=== PATIENT | male | born 1945 | race Caucasian/White ===

== ENCOUNTER 2021-08-04 19:55 | Emergency (ER) | payer MEDICARE ==
[2021-08-04 20:32] VITALS: TEMP 98.2
[2021-08-04 21:14] LABS: Appearance,Urine Clear (Clear); Bacteria,Urine Rare /hpf; Bilirubin,Urine Negative (Negative); Blood,Urine Trace (Negative); Color,Urine Yellow; Glucose,Urine (UA) Negative (Negative); Hyaline Casts,Urine 1 /lpf (0-2); Ketones,Urine 1+ (Negative); Leukocyte Esterase,Urine Small (Negative); Mucus,Urine Occasional /hpf; Nitrite,Urine Negative (Negative); PH, Urine 6.5 (5.0-8.0); Protein,Urine Trace (Negative); RBC,Urine 6 /hpf (0-5); Specific Gravity,Urine 1.017 (1.001-1.035); Urobilinogen,Urine <2.0 mg/dL (<2.0); WBC,Urine 7 /hpf (0-5)
--- NOTE | 2021-08-04 21:23 | ED ---
General Adult HPI - General Chief complaint: Urogenital Stated complaint: AMS Time Seen by Provider: 08/04/21 21:04 Source: patient, family Mode of arrival: ambulatory - History of Present Illness Initial comments: Zachary is a 76-year-old male is brought to the ER today by his and a friend, they're concerned with patient's been quite agitated and not acting like himself. reports that his urine is been very dark and malodorous she is concerned he has UTI. 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 He is under a lot of stress but states that he would never harm himself or others. Family is also concerned because the patient has a long-standing inguinal hernia which pops out 2-3 times a day and sometimes he has to lay down upon it back in. He's not had this followed up by surgeon he doesn't see doctors. Past to be 70 urinary symptoms patient states when I have to go ago and walk for no other information about urinary symptoms. When asked about his hernia he says it looks like any old other hernia and it's fine no pain. - Related Data Previous Rx's Medication Instructions Recorded Cephalexin [Keflex] 500 mg PO Q8HR 5 Days #15 cap 08/04/21 Allergies Allergy/AdvReac Type Severity Reaction Status Date / Time No Known Allergies Allergy Verified 08/04/21 21:35 Review of Systems ROS Statement: Those systems with pertinent positive or pertinent negative responses have been documented in the HPI. ROS Other: All systems not noted in ROS Statement are negative. Past Medical History Past Medical History: No Reported History History of Any Multi-Drug Resistant Organisms: None Reported Past Surgical History: Tonsillectomy Past Psychological History: No Psychological Hx Reported Smoking Status: Never smoker Past Alcohol Use History: None Reported Past Drug Use History: None Reported General Exam - General Exam Comments Initial Comments: Physical Exam GENERAL: Patient is well-developed and well-nourished. Patient is nontoxic and well-hydrated and is in no distress. HENT: Normocephalic, Atraumatic. EYES: PERRL, EOMI PULMONARY: Unlabored respirations. CARDIOVASCULAR: RRR Warm and well perfused extremities ABDOMEN: Non-distended SKIN: No rashes or bruising : Deferred NEUROLOGIC: Alert and oriented Normal speech Normal gait MUSCULOSKELETAL: Moving all extremities with no apparent injury PSYCHIATRIC: No SI/HI Course Vital Signs 08/04/21 08/04/21 08/04/21 20:26 21:32 22:00 Temperature 98.2 F Pulse Rate 80 76 87 Respiratory 18 16 16 Rate Blood Pressure 145/95 148/100 139/97 O2 Sat by Pulse 94 L Oximetry Medical Decision Making - Medical Decision Making Patient was seen and evaluated history is obtained from family members Labs were unremarkable urine suggestive of an early urinary tract infection from patient given Sterapred for Keflex and a prescription The patient is clearly agitated he is not suicidal, homicidal or delusional Patient and family feel comfortable with discharge home Were provided with contact information for local surgeon should the patient what his hernia evaluated - Lab Data Result diagrams: 08/04/21 21:33 08/04/21 21:33 Lab Results 08/04/21 08/04/21 08/04/21 Range/Units 20:42 21:33 21:33 WBC 10.3 (3.8-10.6) k/uL RBC 4.83 (4.30-5.90) m/uL Hgb 14.3 (13.0-17.5) gm/dL Hct 46.1 (39.0-53.0) % MCV 95.4 (80.0-100.0) fL MCH 29.6 (25.0-35.0) pg MCHC 31.0 (31.0-37.0) g/dL RDW 12.7 (11.5-15.5) % Plt Count 257 (150-450) k/uL MPV 7.0 Neutrophils % 75 % Lymphocytes % 12 % Monocytes % 6 % Eosinophils % 5 % Basophils % 1 % Neutrophils # 7.7 (1.3-7.7) k/uL Lymphocytes # 1.2 (1.0-4.8) k/uL Monocytes # 0.6 (0-1.0) k/uL Eosinophils # 0.5 (0-0.7) k/uL Basophils # 0.1 (0-0.2) k/uL Sodium 135 L (137-145) mmol/L Potassium 4.3 (3.5-5.1) mmol/L Chloride 104 (98-107) mmol/L Carbon Dioxide 25 (22-30) mmol/L Anion Gap 6 mmol/L BUN 17 (9-20) mg/dL Creatinine 0.77 (0.66-1.25) mg/dL Est GFR (CKD-EPI)AfAm >90 (>60 ml/min/1.73 sqM) Est GFR (CKD-EPI)NonAf 88 (>60 ml/min/1.73 sqM) Glucose 94 (74-99) mg/dL Calcium 10.2 (8.4-10.2) mg/dL Total Bilirubin 1.2 (0.2-1.3) mg/dL AST 28 (17-59) U/L ALT 25 (4-49) U/L Alkaline Phosphatase 82 (38-126) U/L Total Protein 6.7 (6.3-8.2) g/dL Albumin 4.0 (3.5-5.0) g/dL Urine Color Yellow Urine Appearance Clear (Clear) Urine pH 6.5 (5.0-8.0) Ur Specific [place] 1.017 (1.001-1.035) Urine Protein Trace H (Negative) Urine Glucose (UA) Negative (Negative) Urine Ketones 1+ H (Negative) Urine Blood Trace H (Negative) Urine Nitrite Negative (Negative) Urine Bilirubin Negative (Negative) Urine Urobilinogen <2.0 (<2.0) mg/dL Ur Leukocyte Esterase Small H (Negative) Urine RBC 6 H (0-5) /hpf Urine WBC 7 H (0-5) /hpf Urine Bacteria Rare H (None) /hpf Hyaline Casts 1 (0-2) /lpf Urine Mucus Occasional H (None) /hpf Disposition Clinical Impression: UTI (urinary tract infection), Acute stress reaction Disposition: HOME SELF-CARE Condition: Stable Prescriptions: Cephalexin [Keflex] 500 mg PO Q8HR 5 Days #15 cap Is patient prescribed a controlled substance at d/c from ED?: No Referrals: None,Stated [Primary Care Provider] - 1-2 days Chapincito Ramos MD [Medical Doctor] - 1-2 days River Valdez DO [Doctor of Osteopathic Medicine] - 1-2 days
[2021-08-04 21:40] VITALS: RESP 16
[2021-08-04 21:46] LABS: Basophils # (A) 0.1 k/uL (0-0.2); Basophils % (A) 1 %; Eosinophils # (A) 0.5 k/uL (0-0.7); Eosinophils % (A) 5 %; HCT 46.1 % (39.0-53.0); HGB 14.3 gm/dL (13.0-17.5); Lymphocytes # (A) 1.2 k/uL (1.0-4.8); Lymphocytes % (A) 12 %; MCH 29.6 pg (25.0-35.0); MCV 95.4 fL (80.0-100.0); Monocytes # (A) 0.6 k/uL (0-1.0); Monocytes % (A) 6 %; Neutrophils # (A) 7.7 k/uL (1.3-7.7); Neutrophils % (A) 75 %; Platelet Count 257 k/uL (150-450); RBC 4.83 m/uL (4.30-5.90); RDW 12.7 % (11.5-15.5); WBC 10.3 k/uL (3.8-10.6)
[2021-08-04 21:56] LABS: ALT 25 U/L (4-49); AST 28 U/L (17-59); African American GFR (CKD) >90 (>60 ml/min/1.73 sqM); Alkaline Phosphatase 82 U/L (38-126); Anion Gap 6 mmol/L; Blood Urea Nitrogen 17 mg/dL (9-20); Calcium 10.2 mg/dL (8.4-10.2); Carbon Dioxide 25 mmol/L (22-30); Chloride 104 mmol/L (98-107); Glucose 94 mg/dL (74-99); Non-African American GFR(CKD) 88 (>60 ml/min/1.73 sqM); Potassium 4.3 mmol/L (3.5-5.1); Sodium 135 mmol/L (137-145); Total Bilirubin 1.2 mg/dL (0.2-1.3); Total Protein 6.7 g/dL (6.3-8.2)
[2021-08-04] MEDS ORDERED: CEPHALEXIN 500MG STARTER PACK 4 CAP BTL PO STA (22:44)
[2021-08-04 23:24] VITALS: BP 139/97; PULSE 87
== END 2021-08-04 23:25 | disposition home or self-care (01) ==
LOC: EC 19:55
DX: N39.0 Urinary tract infection, site not specified (principal); F43.0 Acute stress reaction
CPT/HCPCS: 36415; 80053; 81001; 85025; 99284

== ENCOUNTER 2021-08-08 10:17 | Inpatient (IN) | payer MEDICARE, OTHER ==
--- NOTE | 2021-08-08 10:58 | ED ---
General Adult HPI - General Chief complaint: Psychiatric Symptoms Stated complaint: UTI-revisit Time Seen by Provider: 08/08/21 10:26 Source: patient, RN notes reviewed, old records reviewed Mode of arrival: ambulatory Limitations: no limitations - History of Present Illness Initial comments: 76-year-old male presents for psychiatric evaluation. Patient has been making suicidal comments including plan to take cyanide pill. He does not have a desire to live. He has been noncompliant with medical treatment. He was diagnosed with urinary tract infection about one week ago and has required monitoring in order to take his antibiotics. His been no fever. No focal numbness or weakness. Patient family has also reported some increased confusion. - Related Data Home Medications Medication Instructions Recorded Confirmed Cephalexin [Keflex] 500 mg PO Q8H 08/08/21 08/08/21 Allergies Allergy/AdvReac Type Severity Reaction Status Date / Time No Known Allergies Allergy Verified 08/08/21 13:03 Review of Systems ROS Statement: Those systems with pertinent positive or pertinent negative responses have been documented in the HPI. ROS Other: All systems not noted in ROS Statement are negative. Past Medical History Past Medical History: No Reported History History of Any Multi-Drug Resistant Organisms: None Reported Past Surgical History: Tonsillectomy Past Psychological History: No Psychological Hx Reported Smoking Status: Never smoker Past Alcohol Use History: None Reported Past Drug Use History: None Reported General Exam Limitations: no limitations General appearance: alert, in no apparent distress Head exam: Present: atraumatic, normocephalic Eye exam: Present: normal appearance, PERRL ENT exam: Present: normal exam Neck exam: Present: normal inspection. Absent: tenderness, meningismus Respiratory exam: Present: normal lung sounds bilaterally. Absent: respiratory distress, wheezes Cardiovascular Exam: Present: regular rate, normal rhythm GI/Abdominal exam: Present: soft. Absent: distended, tenderness Extremities exam: Present: normal inspection, normal capillary refill Neurological exam: Present: alert, oriented X3, CN II-XII intact. Absent: motor sensory deficit Psychiatric exam: Present: depressed, suicidal ideation Skin exam: Present: warm, dry, intact. Absent: cyanosis, diaphoretic Course Vital Signs 08/08/21 10:18 Temperature 97.5 F L Pulse Rate 76 Respiratory 18 Rate Blood Pressure 145/95 O2 Sat by Pulse 94 L Oximetry - Reevaluation(s) Reevaluation #1: 08/08/21 13:39 Patient had been medically cleared and evaluated by EPS. He is felt to require inpatient psychiatric evaluation and treatment. Medical Decision Making - Medical Decision Making Patient will be admitted for further psychiatric evaluation and treatment.. Patient is suicidal, paranoid and delusional. The complete a clinical certification on this patient. - Lab Data Result diagrams: 08/08/21 11:28 08/08/21 11:28 Lab Results 08/08/21 08/08/21 08/08/21 Range/Units 11:28 11:28 11:28 WBC 7.5 (3.8-10.6) k/uL RBC 4.73 (4.30-5.90) m/uL Hgb 15.1 (13.0-17.5) gm/dL Hct 44.7 (39.0-53.0) % MCV 94.4 (80.0-100.0) fL MCH 31.9 (25.0-35.0) pg MCHC 33.8 (31.0-37.0) g/dL RDW 13.3 (11.5-15.5) % Plt Count 285 (150-450) k/uL MPV 7.1 Neutrophils % 74 % Lymphocytes % 10 % Monocytes % 7 % Eosinophils % 5 % Basophils % 1 % Neutrophils # 5.5 (1.3-7.7) k/uL Lymphocytes # 0.8 L (1.0-4.8) k/uL Monocytes # 0.6 (0-1.0) k/uL Eosinophils # 0.4 (0-0.7) k/uL Basophils # 0.0 (0-0.2) k/uL Sodium 138 (137-145) mmol/L Potassium 4.4 (3.5-5.1) mmol/L Chloride 107 (98-107) mmol/L Carbon Dioxide 23 (22-30) mmol/L Anion Gap 8 mmol/L BUN 17 (9-20) mg/dL Creatinine 0.67 (0.66-1.25) mg/dL Est GFR (CKD-EPI)AfAm >90 (>60 ml/min/1.73 sqM) Est GFR (CKD-EPI)NonAf >90 (>60 ml/min/1.73 sqM) Glucose 83 (74-99) mg/dL Calcium 10.2 (8.4-10.2) mg/dL Total Bilirubin 0.7 (0.2-1.3) mg/dL AST 26 (17-59) U/L ALT 24 (4-49) U/L Alkaline Phosphatase 76 (38-126) U/L Total Protein 6.9 (6.3-8.2) g/dL Albumin 4.0 (3.5-5.0) g/dL Urine Color Yellow Urine Appearance Clear (Clear) Urine pH 6.5 (5.0-8.0) Ur Specific [place] 1.015 (1.001-1.035) Urine Protein Negative (Negative) Urine Glucose (UA) Negative (Negative) Urine Ketones Trace H (Negative) Urine Blood Negative (Negative) Urine Nitrite Negative (Negative) Urine Bilirubin Negative (Negative) Urine Urobilinogen <2.0 (<2.0) mg/dL Ur Leukocyte Esterase Trace H (Negative) Urine RBC 4 (0-5) /hpf Urine WBC 4 (0-5) /hpf Ur Squamous Epith Cells <1 (0-4) /hpf Urine Mucus Rare H (None) /hpf Urine Opiates Screen (NotDetected) Ur Oxycodone Screen (NotDetected) Urine Methadone Screen (NotDetected) Ur Propoxyphene Screen (NotDetected) Ur Barbiturates Screen (NotDetected) U Tricyclic Antidepress (NotDetected) Ur Phencyclidine Scrn (NotDetected) Ur Amphetamines Screen (NotDetected) U Methamphetamines Scrn (NotDetected) U Benzodiazepines Scrn (NotDetected) Urine Cocaine Screen (NotDetected) U Marijuana (THC) Screen (NotDetected) Serum Alcohol <10 mg/dL 08/08/21 Range/Units 11:28 WBC (3.8-10.6) k/uL RBC (4.30-5.90) m/uL Hgb (13.0-17.5) gm/dL Hct (39.0-53.0) % MCV (80.0-100.0) fL MCH (25.0-35.0) pg MCHC (31.0-37.0) g/dL RDW (11.5-15.5) % Plt Count (150-450) k/uL MPV Neutrophils % % Lymphocytes % % Monocytes % % Eosinophils % % Basophils % % Neutrophils # (1.3-7.7) k/uL Lymphocytes # (1.0-4.8) k/uL Monocytes # (0-1.0) k/uL Eosinophils # (0-0.7) k/uL Basophils # (0-0.2) k/uL Sodium (137-145) mmol/L Potassium (3.5-5.1) mmol/L Chloride (98-107) mmol/L Carbon Dioxide (22-30) mmol/L Anion Gap mmol/L BUN (9-20) mg/dL Creatinine (0.66-1.25) mg/dL Est GFR (CKD-EPI)AfAm (>60 ml/min/1.73 sqM) Est GFR (CKD-EPI)NonAf (>60 ml/min/1.73 sqM) Glucose (74-99) mg/dL Calcium (8.4-10.2) mg/dL Total Bilirubin (0.2-1.3) mg/dL AST (17-59) U/L ALT (4-49) U/L Alkaline Phosphatase (38-126) U/L Total Protein (6.3-8.2) g/dL Albumin (3.5-5.0) g/dL Urine Color Urine Appearance (Clear) Urine pH (5.0-8.0) Ur Specific [place] (1.001-1.035) Urine Protein (Negative) Urine Glucose (UA) (Negative) Urine Ketones (Negative) Urine Blood (Negative) Urine Nitrite (Negative) Urine Bilirubin (Negative) Urine Urobilinogen (<2.0) mg/dL Ur Leukocyte Esterase (Negative) Urine RBC (0-5) /hpf Urine WBC (0-5) /hpf Ur Squamous Epith Cells (0-4) /hpf Urine Mucus (None) /hpf Urine Opiates Screen Not Detected (NotDetected) Ur Oxycodone Screen Not Detected (NotDetected) Urine Methadone Screen Not Detected (NotDetected) Ur Propoxyphene Screen Not Detected (NotDetected) Ur Barbiturates Screen Not Detected (NotDetected) U Tricyclic Antidepress Not Detected (NotDetected) Ur Phencyclidine Scrn Not Detected (NotDetected) Ur Amphetamines Screen Not Detected (NotDetected) U Methamphetamines Scrn Not Detected (NotDetected) U Benzodiazepines Scrn Not Detected (NotDetected) Urine Cocaine Screen Not Detected (NotDetected) U Marijuana (THC) Screen Not Detected (NotDetected) Serum Alcohol mg/dL Disposition Clinical Impression: Suicidal ideation, Depression, Acute psychosis Disposition: ADMITTED IP TO THIS [facility] Condition: Stable Is patient prescribed a controlled substance at d/c from ED?: No Referrals: None,Stated [Primary Care Provider] - 1-2 days Time of Disposition: 13:40
[2021-08-08 11:37] LABS: Basophils % (A) 1 %; Eosinophils # (A) 0.4 k/uL (0-0.7); Eosinophils % (A) 5 %; HCT 44.7 % (39.0-53.0); HGB 15.1 gm/dL (13.0-17.5); Lymphocytes # (A) 0.8 k/uL (1.0-4.8); Lymphocytes % (A) 10 %; MCH 31.9 pg (25.0-35.0); MCHC 33.8 g/dL (31.0-37.0); MCV 94.4 fL (80.0-100.0); Mean Platelet Volume 7.1; Monocytes # (A) 0.6 k/uL (0-1.0); Monocytes % (A) 7 %; Neutrophils # (A) 5.5 k/uL (1.3-7.7); Neutrophils % (A) 74 %; Platelet Count 285 k/uL (150-450); RBC 4.73 m/uL (4.30-5.90); RDW 13.3 % (11.5-15.5); WBC 7.5 k/uL (3.8-10.6)
[2021-08-08 11:52] LABS: Appearance,Urine Clear (Clear); Bilirubin,Urine Negative (Negative); Blood,Urine Negative (Negative); Color,Urine Yellow; Glucose,Urine (UA) Negative (Negative); Ketones,Urine Trace (Negative); Leukocyte Esterase,Urine Trace (Negative); Mucus,Urine Rare /hpf; Nitrite,Urine Negative (Negative); PH, Urine 6.5 (5.0-8.0); Protein,Urine Negative (Negative); RBC,Urine 4 /hpf (0-5); Specific Gravity,Urine 1.015 (1.001-1.035); Squamous Epithelial Cell,Urine <1 /hpf (0-4); Urobilinogen,Urine <2.0 mg/dL (<2.0); WBC,Urine 4 /hpf (0-5)
[2021-08-08 11:54] LABS: ALT 24 U/L (4-49); AST 26 U/L (17-59); African American GFR (CKD) >90 (>60 ml/min/1.73 sqM); Alcohol <10 mg/dL; Alkaline Phosphatase 76 U/L (38-126); Anion Gap 8 mmol/L; Blood Urea Nitrogen 17 mg/dL (9-20); Calcium 10.2 mg/dL (8.4-10.2); Carbon Dioxide 23 mmol/L (22-30); Chloride 107 mmol/L (98-107); Glucose 83 mg/dL (74-99); Non-African American GFR(CKD) >90 (>60 ml/min/1.73 sqM); Potassium 4.4 mmol/L (3.5-5.1); Sodium 138 mmol/L (137-145); Total Bilirubin 0.7 mg/dL (0.2-1.3); Total Protein 6.9 g/dL (6.3-8.2)
[2021-08-08 12:00] LABS: Cocaine Screen,Urine Not Detected (NotDetected); Opiate Screen,Urine Not Detected (NotDetected); Phencyclidine Screen,Urine Not Detected (NotDetected); Urn Cannabinoid Scrn Not Detected (NotDetected)
[2021-08-08 12:01] LABS: Amphetamine Screen,Urine Not Detected (NotDetected); Barbiturate Screen,Urine Not Detected (NotDetected); Benzodiazepines Screen,Urine Not Detected (NotDetected); Methadone Screen, Urine Not Detected (NotDetected); Oxycodone Screen, Urine Not Detected (NotDetected); Tricyclic Antidepressant,Urine Not Detected (NotDetected)
[2021-08-08] MEDS ORDERED: MAG HYDROX/AL HYDROX/SIMETH 30 ML CUP PO PRN (17:55)
[2021-08-08] MEDS ORDERED: MAGNESIUM HYDROXIDE 2,400 MG/10 ML CUP PO PRN (17:55)
[2021-08-08] MEDS ORDERED: ACETAMINOPHEN TAB 325 MG TAB PO PRN (17:55)
[2021-08-08] MEDS ORDERED: OLANZapine 10 MG VIAL IM PRN (17:59)
[2021-08-08] MEDS: CEPHALEXIN 500 MG CAP PO SCH (18:55)
[2021-08-08] MEDS ORDERED: risperiDONE 1 MG TAB PO SCH (21:00)
--- NOTE | 2021-08-09 06:24 | P.HPIM ---
History of Present Illness H&P Date: 08/09/21 Chief Complaint: Suicide ideation Patient is a 76-year-old male is admitted to inpatient psychiatric facility here at our hospital. Patient was admitted due to suicidal ideations of wanting to hurt himself by taking a cyanide pill. Patient denied any medical complaints at this time. He does report that he was recently treated for urinary tract infection he denies any nausea or vomiting no fevers or chills no dysuria in urination. He denies any previous medical history and he reports that he does not take any medications at home. Review of Systems All systems: negative Past Medical History Past Medical History: No Reported History History of Any Multi-Drug Resistant Organisms: None Reported Past Surgical History: Tonsillectomy Past Psychological History: No Psychological Hx Reported Smoking Status: Never smoker Past Alcohol Use History: None Reported Past Drug Use History: None Reported Medications and Allergies Home Medications Medication Instructions Recorded Confirmed Type Cephalexin [Keflex] 500 mg PO Q8H 08/08/21 08/08/21 History Allergies Allergy/AdvReac Type Severity Reaction Status Date / Time No Known Allergies Allergy Verified 08/08/21 13:03 Physical Exam Osteopathic Statement: *. No significant issues noted on an osteopathic structural exam other than those noted in the History and Physical/Consult. Vitals: Vital Signs Temp Pulse Pulse Resp BP BP Pulse Ox 08/09/21 06:12 97.8 F 92 18 144/84 99 08/08/21 19:25 97.6 F 76 20 143/93 08/08/21 15:32 97.7 F 66 18 143/100 99 08/08/21 10:18 97.5 F L 76 18 145/95 94 L Intake and Output 08/08/21 08/08/21 08/09/21 14:59 22:59 06:59 Other: Weight 72.575 kg 70.874 kg - Constitutional General appearance: average body habitus, no acute distress - EENT Eyes: EOMI, PERRLA - Neck Neck: normal ROM - Respiratory Respiratory: bilateral: CTA - Cardiovascular Rhythm: regular Heart sounds: normal: S1, S2 - Gastrointestinal General gastrointestinal: normal bowel sounds, soft - Neurologic Neurologic: CNII-XII intact - Psychiatric Psychiatric: A&O x's 3 Results CBC & Chem 7: 08/08/21 11:28 08/08/21 11:28 Labs: Abnormal Lab Results - Last 24 Hours (Table) 08/08/21 08/08/21 Range/Units 11:28 11:28 Lymphocytes # 0.8 L (1.0-4.8) k/uL Urine Ketones Trace H (Negative) Ur Leukocyte Esterase Trace H (Negative) Urine Mucus Rare H (None) /hpf Assessment and Plan (1) Acute psychosis Current Visit: Yes Status: Acute Code(s): F23 - BRIEF PSYCHOTIC DISORDER SNOMED Code(s): 47567683523374 (2) Suicidal ideation Current Visit: Yes Status: Acute Code(s): R45.851 - SUICIDAL IDEATIONS SNOMED Code(s): 9831756 Plan: Acute psychosis Suicide ideation -Patient is admitted to the hospital to inpatient psychiatric facility due to acute psychosis and recent suicidal ideation of wanting to consult by taking a cyanide pill. UTI Patient had a recent diagnosis of UTI and is completing cephalexin for complete treatment. Patient's N Reji on cephalexin is 08/12/2021. Most recent urinalysis revealed trace leuk esterase and minimal WBC.
[2021-08-09] MEDS: CEPHALEXIN 500 MG CAP PO SCH ×4 (08:06→20:16)
[2021-08-09 09:44] LABS: Chol/HDL Ratio 2.94 Ratio; LDL Cholesterol,Calculated 76.6 mg/dL (0.0-131.0); VLDL Calculation 14.44 mg/dL (5.00-40.00)
--- NOTE | 2021-08-09 15:53 | P.HP ---
Psychiatric H&P - . H&P Date: 08/09/21 History & Physical: Allergies Allergy/AdvReac Type Severity Reaction Status Date / Time No Known Allergies Allergy Verified 08/08/21 13:03 Vital Signs Temp 97.8 F 08/09/21 06:12 Pulse 92 08/09/21 06:12 Resp 18 08/09/21 06:12 BP 144/84 08/09/21 06:12 Pulse Ox 99 08/09/21 06:12 FiO2 Intake & Output 08/08/21 08/09/21 08/09/21 18:59 06:59 18:59 Weight 72.575 kg 70.874 kg Laboratory Last Values WBC 7.5 k/uL (3.8-10.6) 08/08/21 11:28 RBC 4.73 m/uL (4.30-5.90) 08/08/21 11:28 Hgb 15.1 gm/dL (13.0-17.5) 08/08/21 11:28 Hct 44.7 % (39.0-53.0) 08/08/21 11:28 MCV 94.4 fL (80.0-100.0) 08/08/21 11:28 MCH 31.9 pg (25.0-35.0) 08/08/21 11:28 MCHC 33.8 g/dL (31.0-37.0) 08/08/21 11:28 RDW 13.3 % (11.5-15.5) 08/08/21 11:28 Plt Count 285 k/uL (150-450) 08/08/21 11:28 MPV 7.1 08/08/21 11:28 Neutrophils % 74 % 08/08/21 11:28 Lymphocytes % 10 % 08/08/21 11:28 Monocytes % 7 % 08/08/21 11:28 Eosinophils % 5 % 08/08/21 11:28 Basophils % 1 % 08/08/21 11:28 Neutrophils # 5.5 k/uL (1.3-7.7) 08/08/21 11:28 Lymphocytes # 0.8 k/uL (1.0-4.8) L 08/08/21 11:28 Monocytes # 0.6 k/uL (0-1.0) 08/08/21 11:28 Eosinophils # 0.4 k/uL (0-0.7) 08/08/21 11:28 Basophils # 0.0 k/uL (0-0.2) 08/08/21 11:28 Sodium 138 mmol/L (137-145) 08/08/21 11:28 Potassium 4.4 mmol/L (3.5-5.1) 08/08/21 11:28 Chloride 107 mmol/L (98-107) 08/08/21 11:28 Carbon Dioxide 23 mmol/L (22-30) 08/08/21 11:28 Anion Gap 8 mmol/L 08/08/21 11:28 BUN 17 mg/dL (9-20) 08/08/21 11:28 Creatinine 0.67 mg/dL (0.66-1.25) 08/08/21 11:28 Est GFR (CKD-EPI)AfAm >90 (>60 ml/min/1.73 sqM) 08/08/21 11:28 Est GFR (CKD-EPI)NonAf >90 (>60 ml/min/1.73 sqM) 08/08/21 11:28 Glucose 83 mg/dL (74-99) 08/08/21 11:[address] Glu mg/dL 108 08/08/21 11:28 Hemoglobin A1c 5.4 % (0.0-6.0) 08/08/21 11:28 Calcium 10.2 mg/dL (8.4-10.2) 08/08/21 11:28 Total Bilirubin 0.7 mg/dL (0.2-1.3) 08/08/21 11:28 AST 26 U/L (17-59) 08/08/21 11:28 ALT 24 U/L (4-49) 08/08/21 11:28 Alkaline Phosphatase 76 U/L (38-126) 08/08/21 11:28 Total Protein 6.9 g/dL (6.3-8.2) 08/08/21 11:28 Albumin 4.0 g/dL (3.5-5.0) 08/08/21 11:28 Triglycerides 72.20 mg/dL (0.00-149.00) 08/08/21 11:28 Cholesterol 138.00 mg/dL (0.00-200.00) 08/08/21 11:28 LDL Cholesterol, Calc 76.6 mg/dL (0.0-131.0) 08/08/21 11:28 VLDL Cholesterol, Calc 14.44 mg/dL (5.00-40.00) 08/08/21 11: HDL Cholesterol 47.00 mg/dL (40.00-60.00) 08/08/21 11:28 Cholesterol/HDL Ratio 2.94 Ratio 08/08/21 11: TSH 1.680 mIU/L (0.465-4.680) 08/08/21 11:28 Urine Color Yellow 08/08/21 11:28 Urine Appearance Clear (Clear) 08/08/21 11:28 Urine pH 6.5 (5.0-8.0) 08/08/21 11: Ur Specific [place] 1.015 (1.001-1.035) 08/08/21 11:28 Urine Protein Negative (Negative) 08/08/21 11:28 Urine Glucose (UA) Negative (Negative) 08/08/21 11:28 Urine Ketones Trace (Negative) H 08/08/21 11:28 Urine Blood Negative (Negative) 08/08/21 11:28 Urine Nitrite Negative (Negative) 08/08/21 11:28 Urine Bilirubin Negative (Negative) 08/08/21 11:28 Urine Urobilinogen <2.0 mg/dL (<2.0) 08/08/21 11:28 Ur Leukocyte Esterase Trace (Negative) H 08/08/21 11:28 Urine RBC 4 /hpf (0-5) 08/08/21 11:28 Urine WBC 4 /hpf (0-5) 08/08/21 11:28 Ur Squamous Epith Cells <1 /hpf (0-4) 08/08/21 11:28 Urine Mucus Rare /hpf (None) H 08/08/21 11:28 Urine Opiates Screen Not Detected (NotDetected) 08/08/21 11:28 Ur Oxycodone Screen Not Detected (NotDetected) 08/08/21 11:28 Urine Methadone Screen Not Detected (NotDetected) 08/08/21 11:28 Ur Propoxyphene Screen Not Detected (NotDetected) 08/08/21 11:28 Ur Barbiturates Screen Not Detected (NotDetected) 08/08/21 11:28 U Tricyclic Antidepress Not Detected (NotDetected) 08/08/21 11:28 Ur Phencyclidine Scrn Not Detected (NotDetected) 08/08/21 11:28 Ur Amphetamines Screen Not Detected (NotDetected) 08/08/21 11:28 U Methamphetamines Scrn Not Detected (NotDetected) 08/08/21 11:28 U Benzodiazepines Scrn Not Detected (NotDetected) 08/08/21 11:28 Urine Cocaine Screen Not Detected (NotDetected) 08/08/21 11:28 U Marijuana (THC) Screen Not Detected (NotDetected) 08/08/21 11:28 Serum Alcohol <10 mg/dL 08/08/21 11:28 Coronavirus (PCR) Not Detected (Not Detectd) 08/08/21 14:06 08/09/21 14:46 IDENTIFYING DATA: Patient is a 76-year-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 HPI: Patient presented to the hospital yesterday on a petition by his claimed that he was endorsing paranoia and suicidal thoughts. Patient was evaluated in the ER and admitted involuntarily to the mental health unit. Patient's urine drug screen was negative however his urine analysis was positive for trace amounts of leukocyte esterase. Patient apparently has been being treated with antibiotics for the past several days for a urinary tract infection which she was seen for previously. Patient was seen today by data analyst report writer and appeared to be well groomed. He was rambling at times and was illogical. 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 He claims that he has a fear that the cattle will escape from the [place] and from the fence and go on to traffic and possibly harm someone. He claims that his and son brought him into the hospital to be evaluated for this. 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 He appeared to have very poor insight and judgment. He claims that he does not need to be in the hospital. He claims that he does feel that his mood is "out of control" he also was endorsing paranoia. He claims that he told his that he wanted to take cyanide wanted to commit suicide before coming into the hospital which alarmed her he said. He states that his sleep has been fairly poor as being his been fairly preoccupied with the cattle. Patient denies any suicidal or homicidal ideations intent or plan. At this time patient denies any auditory or visual hallucinations. He denies using any recreational drugs or cigarettes at this time. PAST PSYCHIATRIC HISTORY: Patient states that he has no significant psychiatric history. Patient denies being on any psychiatric medications. Patient denies any previous psychiatric hospitalizations. Patient denies any psychiatric outpatient follow-up. Patient denies any history of suicide attempts in the past. PMH: As per medical H&P ALLERGIES: as per EMR CHEMICAL DEPENDENCY HISTORY: as per HPI FAMILY PSYCHIATRIC/SUBSTANCE USE HISTORY: denies SOCIAL HISTORY: Patient was born and raised in [facility]. 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 He claims that he completed high school. He denies any legal history.. MENTAL STATUS EXAM: General Appearance: Patient appears to be well built, stated age is alert, difficult to redirect at times. Patient appears to have fair hygiene and grooming. Behavior: Patient is seated without any agitated behavior. Paranoid. Speech: Patient's speech is fluent and nonpressured. Mood/Affect: Patient reports their mood is depressed, affect is congruent and constricted. Suicidality/Homicidality: Patient denies having any homicidal ideation intent or plan. Denies any suicidal ideations intent or plan Perceptions: Patient denies any visual hallucinations and denies any auditory hallucinations Though content/process: Delusional, preoccupied with cattle in them escaping. Endorsing significant paranoia. Poor reality testing. Memory and concentration: AOX3, grossly intact for the purposes of this session. Can spell "WORLD" backwards Judgment and insight: poor STRENGTHS/WEAKNESSES: strength is that patient is resilient. Weakness is that patient has poor outpatient follow-up and poor insight. INTELLECT: average IMPRESSIONS: Psychosis unspecified, rule out delusional disorder vs secondary to general medical condition/infection PLAN: -Patient is admitted under involuntary status to MHU for stabilization of psychiatric symptoms and safety. Patient has not signed adult voluntary form and medication consent and is placed in patient's chart. A second certification was completed and along with petition will be filed for court. -Medications : Will start patient on Prolixin 1.5 mg twice a day for psychosis. Melatonin 2 mg daily at bedtime for sleep. -Will continue on with Keflex for 5 more days to treat UTI. -Zyprexa PRN for agitation/aggression -Patient was informed of the risks, benefits and side effects of the medication -Internal Medicine consult to perform medical evaluation and physical. -NRT - not needed as patient does not smoke -SW on board for discharge planning. Encourage patient to participate in groups to work on coping skills. Will await deferral and court date. 08/09/21 15:48
[2021-08-09 16:17] VITALS: BMI 25.2
[2021-08-09] MEDS ORDERED: MELATONIN 1 MG TAB PO SCH (21:00)
[2021-08-10] MEDS: CEPHALEXIN 500 MG CAP PO SCH ×3 (09:19→21:04)
--- NOTE | 2021-08-10 09:51 | P.PN ---
Progress Note - Text Progress Note Date: 08/10/21 Interval History: Patient was seen wandering the hallways and was directable and agreeable to perez bah with remote mortgage underwriter in the office. Patient claims the he is sorry about telling his about what happened the cattle. He was endorsing significant hopelessness today and believes that "I'll never get out of here" and was rambling about the court process and being "sentenced" to remain in the hospital. He kept on referring "to the end". He states that he is thinking less about the cattle at this time and more about his own situation and feels overwhelmed and helpless. He states that he is going to some groups and attending to participate. Continues to have poor reality testing. He states that he slept about 2-1/2 hours last night. At this time patient denies any suicidal or homical ideations, intent or plan. Patient denies any auditory, visual hallucinations. Patient denies any side effects from the medications and has been compliant with meds. Mental Status Exam: General Appearance: Patient appears to be well built, stated age is alert, difficult to redirect at times. Patient appears to have fair hygiene and grooming. Behavior: Patient is seated without any agitated behavior. less Paranoid today. Speech: Patient's speech is fluent and nonpressured. Mood/Affect: Patient reports their mood is depressed, affect is congruent and constricted. Suicidality/Homicidality: Patient denies having any homicidal ideation intent or plan. denies suicidal thoughts today. Perceptions: Patient denies any visual hallucinations and denies any auditory hallucinations Though content/process: less preoccupied with cattle in them escaping. paranoia improving. Poor reality testing. catastrophizes. hoplessness. Memory and concentration: AOX3, grossly intact for the purposes of this session Judgment and insight: poor IMPRESSIONS: Psychosis unspecified, rule out delusional disorder vs secondary to general medical condition/infection Plan: -Patient continues to meet criteria for inpatient psychiatric admission for symptom stabilization and safety. Patient has not signed adult voluntary form and medication consent and was placed in patient's chart. -Medications: Continue with Prolixin 1.5 mg twice a day for psychosis, consider increasing over the weekend if needed. Discontinue melatonin at this time and replaced with Remeron 15 mg daily at bedtime for sleep/mood/anxiety, continue increasing over the weekend if needed. Consider adding an SSRI if needed as well if patient is continuing to endorse depression. -When necessary Zyprexa prn for agitation/aggression. -NRT - not needed as patient does not smoke. -SW on board for discharge planning. Encouraged the patient to participate in milieu. Currently awaiting deferral with employment law attorney and court date.
[2021-08-10] MEDS: OLANZapine 2.5 MG TAB PO PRN (16:26)
[2021-08-10] MEDS: MIRTAZAPINE 15 MG TAB PO SCH (21:05)
[2021-08-11 07:21] VITALS: TEMP 98.6
[2021-08-11] MEDS: CEPHALEXIN 500 MG CAP PO SCH ×3 (09:03→21:07)
--- NOTE | 2021-08-11 10:16 | P.PN ---
Subjective Progress Note Date: 08/11/21 Principal diagnosis: Psychosis unspecified Patient was seen wandering the hallways and was directable and agreeable to speak with hand sign writer in the office. Subjective: The patient was somewhat hesitant but admitted that he had been trying to warn his family of dangers to come but that he should've moved onto what he wanted them to do about it not just talk about the fear in danger. However he could not tell me what the danger was. He is terribly anxious, he did not sleep well but when I suggested we might want to bump up his medicines then he said why might sleep too long and start time about our schedule here being too demanding. He denied any bad side effects on the medication. Medications: The patient on Prolixin 1.5 twice a day and mirtazapine 50 A still has some trouble getting to sleep Mental Status Exam: General Appearance: Patient appears to be well built, he looks his stated age, is alert. Patient appears to have fair hygiene and grooming. Behavior: Patient is seated without any agitated behavior. less Paranoid today. Speech: Patient's speech is fluent and nonpressured but it is obvious that he is trying to figure out if the things he says will get him into trouble or not. He does not seem to have any insight. Mood/Affect: Patient reports their mood is depressed, affect is congruent and constricted. Suicidality/Homicidality: Patient denies having any homicidal ideation intent or plan. denies suicidal thoughts today. Perceptions: Patient denies any visual hallucinations and denies any auditory hallucinations Though content/process: He gets to worrying about any decision or anything he says there does not say Memory and concentration: AOX3, grossly intact for the purposes of this session Judgment and insight: poor IMPRESSIONS: Psychosis unspecified, rule out delusional disorder vs secondary to general medical condition/infection I think he still needs to be in the hospital and is still psychotic without insight Plan: -Patient continues to meet criteria for inpatient psychiatric admission for symptom stabilization and safety. Patient has not signed adult voluntary form and medication consent and was placed in patient's chart. -Medications: Continue with Prolixin 1.5 mg twice a day for psychosis, consider increasing over the weekend if needed. He was given Remeron 15 mg daily at bedtime for sleep/mood/anxiety, continue increasing over the weekend if needed. If he tolerates it today I will increase it tomorrow to 30 mg as it is more likely to work any seems to be tolerating it he is not really hungry or too sleepy -When necessary Zyprexa prn for agitation/aggression. -NRT - not needed as patient does not smoke. -SW on board for discharge planning. Encouraged the patient to participate in milieu. Currently awaiting deferral with international tax manager and court date. Objective - Vital Signs Vital signs: Vital Signs Temp 98.6 F 08/11/21 07:21 Pulse 95 08/11/21 07:21 Resp 16 08/10/21 06:51 BP 148/98 08/11/21 07:21 Pulse Ox 95 08/11/21 07:21 FiO2 - Labs CBC & Chem 7: 08/08/21 11:28 08/08/21 11:28
[2021-08-11] MEDS: OLANZapine 2.5 MG TAB PO PRN (14:19)
--- NOTE | 2021-08-11 18:30 | US ---
EXAMINATION TYPE: US scrotum with doppler. Grayscale and color Doppler Duplex imaging performed of t kathy scrotum. DATE OF EXAM: 08/11/2021 COMPARISON: NONE CLINICAL HISTORY: pain and testicle moving to lower abd. Exam done portable in MHU EXAM MEASUREMENTS: TESTICLES: Right Testicle: 4.6 x 1.8 x 2.5 cm, heterogeneous Left Testicle: 4.3 x 2.0 x 3.2 cm EPIDIDYMIS HEAD: Right Epididymis: 1.6 cm, cyst 0.7cm Left Epididymis: 1.5 cm, cyst 0.7cm Doppler performed to assess for testicular vascularity; good bilateral color flow and waveforms are s een. There is no evidence of testicular torsion. Presence of hydroceles: left 3.0cm Presence of varicoceles: bilateral prominent vessels, great on left IMPRESSION: No evidence of testicular torsion or mass. Small epididymal cysts noted. No free fluid. Mild bilatera l varicoceles.
[2021-08-11] MEDS: MIRTAZAPINE 15 MG TAB PO SCH (21:07)
[2021-08-12 00:28] VITALS: RESP 18
[2021-08-12 00:29] VITALS: BP 173/72; PULSE 89
[2021-08-12] MEDS: OLANZapine 2.5 MG TAB PO PRN ×2 (01:46→08:22)
[2021-08-12] MEDS: CEPHALEXIN 500 MG CAP PO SCH (08:16)
[2021-08-12 08:42] LABS: Basophils # (A) 0.1 k/uL (0-0.2); Basophils % (A) 1 %; Eosinophils # (A) 0.7 k/uL (0-0.7); Eosinophils % (A) 8 %; HCT 50.9 % (39.0-53.0); HGB 16.6 gm/dL (13.0-17.5); Lymphocytes # (A) 1.2 k/uL (1.0-4.8); Lymphocytes % (A) 14 %; MCH 31.7 pg (25.0-35.0); MCHC 32.6 g/dL (31.0-37.0); MCV 97.3 fL (80.0-100.0); Monocytes # (A) 0.7 k/uL (0-1.0); Monocytes % (A) 8 %; Neutrophils # (A) 5.9 k/uL (1.3-7.7); Neutrophils % (A) 67 %; Platelet Count 314 k/uL (150-450); RBC 5.23 m/uL (4.30-5.90); RDW 13.5 % (11.5-15.5); WBC 8.9 k/uL (3.8-10.6)
[2021-08-12 08:56] LABS: Amorphous Sediment,Urine Moderate /hpf; Appearance,Urine Cloudy (Clear); Bacteria,Urine Rare /hpf; Bilirubin,Urine Negative (Negative); Blood,Urine Negative (Negative); Color,Urine Yellow; Glucose,Urine (UA) Negative (Negative); Hyaline Casts,Urine 1 /lpf (0-2); Ketones,Urine Negative (Negative); Leukocyte Esterase,Urine Negative (Negative); Mucus,Urine Rare /hpf; Nitrite,Urine Negative (Negative); Protein,Urine 1+ (Negative); RBC,Urine 3 /hpf (0-5); Specific Gravity,Urine 1.011 (1.001-1.035); Squamous Epithelial Cell,Urine <1 /hpf (0-4); Urobilinogen,Urine <2.0 mg/dL (<2.0); WBC,Urine 5 /hpf (0-5)
--- NOTE | 2021-08-12 10:43 | CT ---
EXAMINATION TYPE: CT brain wo con CT DLP: 961.00 mGycm, Automated exposure control for dose reduction was used. DATE OF EXAM: 08/12/2021 10:19 AM COMPARISON: None. CLINICAL INDICATION:Male, 76 years old with history of fall. TECHNIQUE: Brain: Multiple axial CT images of the brain were obtained without IV contrast. FINDINGS: Brain: Extra-axial spaces: No abnormal extra-axial fluid collections. Ventricular system: Within normal limits Cerebral parenchyma: No acute intraparenchymal hemorrhage or mass effect. The hernández-white junction is well differentiated. Cerebellum: Hypodensity within the superior aspect of the left superior hemisphere Mass effect: No evidence of midline shift. Intracranial vasculature: Atherosclerotic calcifications of the intracranial vessels. Soft tissues: Normal. Calvarium/osseous structures: No depressed skull fracture. Paranasal sinuses and mastoid air cells: Mild scattered paranasal sinus disease. Visualized orbits: Orbital contents are intact. IMPRESSION: Age indeterminant injury to the left superior cerebellar hemisphere. Clinical correlation and conside ration for MRI to rule out acute/subacute CVA.
--- NOTE | 2021-08-12 11:11 | P.PN ---
Subjective Progress Note Date: 08/12/21 Principal diagnosis: Psychosis unspecified Patient was talked to in his room. He was sitting there with food in his lap but was not eating and said he was not hungry Subjective: The patient was somewhat hesitant but admitted that he had been trying to warn his family of dangers to come. He was rambling about cows getting out and that it was in the nose and cars that already hit them. There is a story about him having gotten in a quad accident. He acknowledges that but denies that he was knocked out. However his family feels that he has been acting differently ever since. He does not seem to be benefiting from medications that should come him down and he seems to be getting slightly more confused and disoriented Medications: The patient on Prolixin 1.5 twice a day and mirtazapine 15 mg. He still has some trouble getting to sleep Mental Status Exam: General Appearance: Patient appears to be well built, he looks his stated age, is alert. Patient appears to have fair hygiene and grooming. Behavior: Patient is seated without any agitated behavior. less Paranoid today. Speech: Patient's speech is hesitant. Suicidality/Homicidality: Patient denies having any homicidal ideation intent or plan. denies suicidal thoughts today. Perceptions: Patient denies any visual hallucinations and denies any auditory hallucinations Though content/process: He gets to worrying about any decision or anything he says or does not say and just seems to be having trouble making any decisions Memory and concentration: AOX3, grossly intact for the purposes of this session Judgment and insight: poor IMPRESSIONS: The question is whether some of this confusion and delusions his secondary to head injury.(Is possible have a minor injury and start a bleed inside that can gradually grow) my experience of the patient to that this is not so much psychotic and has some sort of organic confusion Psychosis unspecified, rule out delusional disorder vs secondary to general medi natalie condition/infection I think he still needs to be in the hospital and is still psychotic without insight Plan: In talking with the nursing staff I think it would be best for him to be handled on an in patient medical unit -Patient continues to meet criteria for inpatient admission for symptom st abilization and safety and workup of possible general medical condition or injury.. Patient has not signed adult voluntary form and medication consent and was placed in patient's chart. -Medications: Continue for now with Prolixin 1.5 mg twice a day for psychosis, consider increasing over the weekend if needed. He was given Remeron 15 mg daily at bedtime for sleep/mood/anxiety, continue increasing over the weekend if needed. -When necessary Zyprexa prn for agitation/aggression. -NRT - not needed as patient does not smoke. -SW on board for discharge planning. Encouraged the patient to participate in milieu. Currently awaiting deferral with disability attorney and court date. Objective - Vital Signs Vital signs: Vital Signs Temp 98.6 F 08/11/21 07:21 Pulse 89 08/11/21 22:00 Resp 18 08/11/21 22:00 BP 173/72 08/11/21 22:00 Pulse Ox 98 08/11/21 22:00 FiO2 - Labs CBC & Chem 7: 08/12/21 08:00 08/08/21 11:28 Labs: Abnormal Lab Results - Last 24 Hours (Table) 08/12/21 Range/Units 08:24 Urine Protein 1+ H (Negative) Amorphous Sediment Moderate H (None) /hpf Urine Bacteria Rare H (None) /hpf Urine Mucus Rare H (None) /hpf
== END 2021-08-12 14:54 | disposition short-term general hospital (02) | DRG 885 ==
LOC: EC 10:17 → 3MHU 17:32
PROVIDERS: ADMIT Psychiatry & Neurology Psychiatry; ATTEND Psychiatry & Neurology Psychiatry
DX: F23 Brief psychotic disorder (principal); N39.0 Urinary tract infection, site not specified; R45.851 Suicidal ideations; F32.A Depression, unspecified; S09.90XA Unspecified injury of head, initial encounter; Z87.440 Personal history of urinary (tract) infections; Z91.19 Patient's noncompliance with other medical treatment and regimen; Z20.822 Contact with and (suspected) exposure to COVID-19; R45.1 Restlessness and agitation; Z90.89 Acquired absence of other organs; Z71.3 Dietary counseling and surveillance
CPT/HCPCS: 36415; 70450; 76870; 80053; 80061; 80306; 80320; 81001; 82075; 83036; 84443; 85025; 87635; 93975; 99285

== ENCOUNTER 2021-08-12 11:42 | Inpatient (IN) | payer MEDICARE, OTHER ==
[2021-08-12] MEDS ORDERED: ACETAMINOPHEN TAB 325 MG TAB PO PRN (13:30)
[2021-08-12] MEDS ORDERED: NALOXONE 0.4 MG/ML 1 ML VIAL IV PRN (13:30)
--- NOTE | 2021-08-12 13:47 | P.HPIM ---
History of Present Illness H&P Date: 08/12/21 Chief Complaint: confusion 76-year-old male who was earlier admitted to inpatient psychiatric facility due to confusion, paranoia, suicidal ideations wanting to hurt himself by taking a cyanide pill. He was recently treated for urinary tract infection. However symptoms of confusion did not fuad and he continued to be fretful and anxious. 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 He denied loss of consuciousness or head trauma. Denied focal weakness or numbness. No fevers or chills. No nausea or vomiting. I was called to see him in the mental health unit yesterday due to having painful left inguinal hernia that he was able to reduce himself. He appears to have very poor insight and judgment. While talking to him he claimed that he was seeing the devil in the tray of food in front of him. He denies any previous medical history and he reports that he does not take any medications at home. Due to the reported history of falling reported to the hospital by his son today, he had a head CT scan which showed age indeterminate injury to the left superior cerebellar hemisphere, stroke can't be ruled out. He was subsequently transferred to the floor for further management. Review of Systems Complete review of system performed, pertinent positives per HPI, otherwise negative Past Medical History Past Medical History: No Reported History History of Any Multi-Drug Resistant Organisms: None Reported Past Surgical History: Tonsillectomy Past Psychological History: No Psychological Hx Reported Smoking Status: Never smoker Past Alcohol Use History: None Reported Past Drug Use History: None Reported Medications and Allergies Home Medications Medication Instructions Recorded Confirmed Type Cephalexin [Keflex] 500 mg PO Q8H 08/08/21 08/12/21 History Allergies Allergy/AdvReac Type Severity Reaction Status Date / Time No Known Allergies Allergy Verified 08/08/21 13:03 Physical Exam Vitals: Constitutional: No acute distress, conversant, pleasant Eyes:Anicteric sclerae, moist conjunctiva, no lid-lag, PERRLA, ENMT: Oropharynx clear, no erythema, exudates Neck: Supple, FROM, no masses, or JVD, No carotid bruits, No thyromegaly Lungs: Clear to auscultation, Clear to percussion, Normal respiratory effort, no accessory muscle use Cardiovascular: Heart regular in rate and rhythm, No murmurs, gallops, or rubs, No peripheral edema Abdominal: + left inguinal hernia, going down to the left testicular sac, reducible no signs of inflammation or strangulation. Abdomen soft, Nontender, no guarding, rebound or rigidity, Normoactive bowel sounds, No hepatomegaly, No splenomegaly, No palpable mass Skin: Normal temperature, tone, texture, turgor, no induration, No subcutaneous nodules, No rash, lesions, No ulcers Extremities: No digital cyanosis, No clubbing, Pedal pulses intact and symmetrical, Radial pulses intact and symmetrical, No calf tenderness Neuro: Muscles Strength 5/5 in all 4 extremities, Sensation to light touch grossly present throughout, Cranial nerves II-XII grossly intact, no focal sensory deficits Assessment and Plan Plan: Acute confusion with abnormal CT head Admit for brain MRI neurology consult. Left inguinal hernia Management by surgery in the office. No signs of strangulation or bowel obstruction. Suicidal ideation/acute psychosis Consult psych to follow while on the floor. DVT prophylaxis Lovenox Admit to inpatient expected length of stay more than 2 midnights.
[2021-08-12] MEDS ORDERED: OLANZapine 2.5 MG TAB PO PRN (13:49)
[2021-08-12] MEDS ORDERED: polyethylene glycoL 3350 17 GM POWD.PACK PO PRN (13:50)
[2021-08-12] MEDS: MIRTAZAPINE 15 MG TAB PO SCH (21:20)
[2021-08-13 09:22] LABS: Basophils # (A) 0.1 k/uL (0-0.2); Basophils % (A) 1 %; Eosinophils # (A) 0.7 k/uL (0-0.7); Eosinophils % (A) 9 %; HCT 47.6 % (39.0-53.0); HGB 15.3 gm/dL (13.0-17.5); Lymphocytes % (A) 13 %; MCH 31.2 pg (25.0-35.0); MCHC 32.2 g/dL (31.0-37.0); Mean Platelet Volume 6.9; Monocytes # (A) 0.5 k/uL (0-1.0); Monocytes % (A) 6 %; Neutrophils # (A) 5.1 k/uL (1.3-7.7); Neutrophils % (A) 68 %; Platelet Count 268 k/uL (150-450); RBC 4.91 m/uL (4.30-5.90); RDW 13.1 % (11.5-15.5); WBC 7.4 k/uL (3.8-10.6)
[2021-08-13 09:38] LABS: ALT 21 U/L (4-49); AST 22 U/L (17-59); African American GFR (CKD) >90 (>60 ml/min/1.73 sqM); Albumin 3.8 g/dL (3.5-5.0); Alkaline Phosphatase 73 U/L (38-126); Anion Gap 6 mmol/L; Blood Urea Nitrogen 19 mg/dL (9-20); Calcium 10.3 mg/dL (8.4-10.2); Carbon Dioxide 28 mmol/L (22-30); Chloride 106 mmol/L (98-107); Glucose 161 mg/dL (74-99); Magnesium 2.3 mg/dL (1.6-2.3); Non-African American GFR(CKD) 83 (>60 ml/min/1.73 sqM); Phosphorus 2.6 mg/dL (2.5-4.5); Potassium 4.2 mmol/L (3.5-5.1); Sodium 140 mmol/L (137-145); Total Bilirubin 1.1 mg/dL (0.2-1.3); Total Protein 6.7 g/dL (6.3-8.2)
--- NOTE | 2021-08-13 10:33 | P.CNNES ---
History of Present Illness Consult date: 08/13/21 Requesting physician: Hilario Melendez Reason for Consult: stroke History of Present Illness: This is a 76-year-old gentleman who was admitted to inpatient psychiatry facility due to confusion, paranoia suicidal ideation. Neurology is consulted for stroke because of CT head. The patient was recently treated for urinary tract infection and the patient continued to have confusion and while he was at an inpatient psychiatry, so CT of the head the was performed ordered by the psychiatrist team and it's reported as age indeterminate injury to the left superior cerebellar hemisphere. Cortical correlation and consideration for MRI to rule out acute/subacute CVA. Patient feels he is at baseline and denies any history of stroke or TIA in past. He denies of any focal deficits. He denies of any visual changes, slurring of speech. He feels as stated earlier back to baseline. I personally reviewed the CT of the head it's hard to determine any acute subacute ischemia on the CT of the head because of artifact. Otherwise there is no acute subacute ischemia noted. Other recent workup is CBC with differential on 08/12/2021 was unremarkable. Chemistry panel on 08/09/2019 was also unremarkable. TSH is within normal limits. Review of Systems Review of system: The 12 point system was reviewed and apparent positive and negative per HPI. Past Medical History Past Medical History: No Reported History History of Any Multi-Drug Resistant Organisms: None Reported Past Surgical History: Tonsillectomy Additional Past Surgical History / Comment(s): Broken ar with surgery, hernia repair as infant Past Anesthesia/Blood Transfusion Reactions: No Reported Reaction Past Psychological History: No Psychological Hx Reported Smoking Status: Never smoker Past Alcohol Use History: None Reported Past Drug Use History: None Reported Medications and Allergies Home Medications Medication Instructions Recorded Confirmed Type Cephalexin [Keflex] 500 mg PO Q8H 08/08/21 08/12/21 History Allergies Allergy/AdvReac Type Severity Reaction Status Date / Time No Known Allergies Allergy Verified 08/08/21 13:03 Physical Examination - Vital Signs Vital Signs: Vital Signs Temp Pulse Resp BP Pulse Ox 08/13/21 03:26 78 17 123/74 94 L 08/13/21 01:34 83 16 08/13/21 00:00 97.7 F 83 16 132/83 93 L 08/12/21 20:00 97.6 F 96 17 153/99 94 L 08/12/21 15:16 97.4 F L 87 16 132/82 96 08/12/21 13:33 97.8 F 86 16 146/89 96 Intake and Output 08/12/21 08/13/21 08/13/21 22:59 06:59 14:59 Intake Total 590 100 Balance 590 100 Intake: IV 10 Invasive Line 1 10 Oral 580 100 Other: Voiding Method Toilet Toilet # Voids 1 1 GENERAL: The patient is lying in bed and is not in acute distress. CHEST: The heart rate is regular rate rhythm. No murmurs to auscultation. LUNG: Clear to auscultation bilaterally no wheezing noted throughout. Not labored breathing. ABDOMEN/GI: Bowel sounds present in all 4 quadrants. No tenderness to palpation throughout. PSYCH: Agitated and upset. NEUROLOGICAL: Higher mental function: The patient is awake, alert, oriented to self, place and time. Patient is following commands. No aphasia and no neglect. Cranial nerves: The pupils are round, equal and reactive to light and accommodation. Visual bernal are full to confrontation throughout. Extraocular movement is intact no nystagmus is noted. Facial sensation is normal to touch throughout. The facial strength is normal throughout. Hearing is mildly de creased bilaterally to hand rub. Tongue is midline and moved [id number] without any difficulty. No dysarthria is noted. Shoulder shrug is normal bilaterally. Motor: The strength is 5 over 5 throughout. Normal tone and bulk. Cerebellum: Normal finger to nose heel to cabrera bilaterally. Sensation: Sensation is normal to touch throughout. Reflexes (right/left): 1+ throughout. Plantars are mute bilaterally. Results - Laboratory Findings CBC and BMP: 08/13/21 08:57 08/13/21 08:57 Assessment and Plan Assessment: Reported abnormal CT over the left superior cerebellar hemisphere and age indeterminate. CT head is difficult to ascertain posterior circulation stroke because of artifact. Acute psychosis Suicidal ideation Depression Plan: MRI of the brain without is ordered by the primary team is pending If the patient does have a acute subacute stroke on the MRI then we'll get the rest of the stroke workup. TSH recently was within normal limits. I ordered vitamin B12, folate, ammonia level. If patient has any further confusion episodes then would recommend routine EEG. Otherwise, I'll hold off any further workup until MRI of the brain is back. Q4 hour neuro checks. Psychiatry team is consulted The plan is discussed with primary team. Thank you for the consultation. Lobo Edgar M.D. Neuro-Hospitalist Time with Patient: Greater than 30
--- NOTE | 2021-08-13 11:11 | P.PN ---
Subjective Progress Note Date: 08/13/21 Principal diagnosis: pychosis Doing well. No new complaints. He is better oriented today, less fretful. No pain or sob. Was seen with neurologist at the bedside. Objective - Vital Signs Vital signs: Vital Signs Temp 97.7 F 08/13/21 00:00 Pulse 78 08/13/21 03:26 Resp 17 08/13/21 03:26 BP 123/74 08/13/21 03:26 Pulse Ox 94 L 08/13/21 03:26 FiO2 Intake & Output 08/12/21 08/13/21 08/13/21 18:59 06:59 18:59 Intake Total 490 200 118 Balance 490 200 118 Weight 70.2 kg Intake: IV 10 Invasive Line 1 10 Oral 480 200 118 Other: Voiding Method Toilet # Voids 1 - Exam Constitutional: No acute distress, conversant, pleasant Eyes:Anicteric sclerae, moist conjunctiva, no lid-lag, PERRLA, ENMT: Oropharynx clear, no erythema, exudates Neck: Supple, FROM, no masses, or JVD, No carotid bruits, No thyromegaly Lungs: Clear to auscultation, Clear to percussion, Normal respiratory effort, no accessory muscle use Cardiovascular: Heart regular in rate and rhythm, No murmurs, gallops, or rubs, No peripheral edema Abdominal: Soft, Nontender, no guarding, rebound or rigidity, Normoactive bowel sounds, No hepatomegaly, No splenomegaly, No palpable mass Skin: Normal temperature, tone, texture, turgor, no induration, No subcutaneous nodules, No rash, lesions, No ulcers Extremities: No digital cyanosis, No clubbing, Pedal pulses intact and symmetrical, Radial pulses intact and symmetrical, No calf tenderness Neuro: Muscles Strength 5/5 in all 4 extremities, Sensation to light touch grossly present throughout, Cranial nerves II-XII grossly intact, no focal sensory deficits - Labs CBC & Chem 7: 08/13/21 08:57 08/13/21 08:57 Labs: Abnormal Lab Results - Last 24 Hours (Table) 08/13/21 Range/Units 08:57 Glucose 161 H (74-99) mg/dL Calcium 10.3 H (8.4-10.2) mg/dL Assessment and Plan Plan: Acute confusion with abnormal CT head Admit for brain MRI D/w neurology. Ammonia level ordered, normal. Left inguinal hernia Management by surgery in the office. No signs of strangulation or bowel obstruction. Suicidal ideation/acute psychosis Consult psych to follow while on the floor. DVT prophylaxis Lovenox
[2021-08-13] MEDS: ENOXAPARIN 40 MG/0.4 ML SYRINGE SQ SCH (13:24)
--- NOTE | 2021-08-13 15:46 | MR ---
MR brain without contrast HISTORY: Cerebrovascular accident Multiplanar multisequence imaging obtained through the brain Correlation to CT brain dated 08/12/2021 There is no restricted diffusion. Cortical atrophy is present. There are normal vascular flow voids. Orbits show symmetric appearance. Corpus callosum, pituitary, cervical medullary junction, cerebellop ontine angles are normal. There is inflammatory change in the mastoid air cells, ethmoid air cells. N o hemorrhage or hydrocephalus. There is some periventricular, pericallosal and subcortical hyperinten sities on inversion recovery T2-weighted sequences. IMPRESSION: Age-related changes of atrophy and chronic small vessel ischemia. Inflammatory changes wi thin the mastoid air cells and sinuses. No evident subacute infarct.
--- NOTE | 2021-08-13 15:54 | P.CN ---
Psychiatric Consult - . Consult date: 08/13/21 Consult:: REASON FOR CONSULT: The patient is a 76-year-old male admitted to the psychiatric unit on 08/09/2021 and a petition completed by his endorsing paranoia and suicidal thoughts. On presentation to the psychiatric unit his speech was rambling and at times illogical. 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 He complained that he is afraid that his cattle with escape their pen, wander into traffic and hurt someone. The psychiatrist covering the weekend evaluate the patient and determined that she is confusion and disorganized thinking was likely due to a medical and/or neurologic condition resume primary psychiatric disorder. After we consult medicine patient was transferred to the medical unit for neurological evaluation and an MRI. HISTORY: I spoke to the patient and his . She stated that he was doing well until June when he contracted tCOVID. She stated that since the infection he has not returned to his usual self. She described them as feeling more confused, lethargic and has lost interest in many of his usual activities including reading and listening to the radio. He also began to perseverate about the costs escaping from their pen even though his family repeatedly assured him that the animal were secure. The patient was unable to provide an explanation for the hospitalization. 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 Both he and his family denied a history of psychiatric illness or substance use problems. MENTAL STATUS EXAM: He presented as a short stocky elderly male who was pleasant on approach. He made eye contact and appeared to attend to the interview. He had no prominent physical abnormalities. He has a guarded facial expression. He is alert and oriented to person, place and time. He had slight psychomotor retardation but no abnormal involuntary movements. His speech was spontaneous with decreased volume and amount. His affect was blunted but stable. He did not express suicidal ideation or homicidal ideation. He denied feeling hopeless, helpless or worthless. 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 He did not express clear ideas reference or paranoid ideation. His thinking was concrete but his associations appeared organized. He denied hallucinations and did not appear to responding to internal stimuli. He knew the month, date and year. He was oriented to day of the week and season. He was able to register the memory phrase "Jose Maria Domingo, [address] [place] [id number]." And he recalled the memory phrase after distraction exercises. He is unable to count backwards by sevens from 100 but was able to count backwards from 20 and name the months of the year backwards beginning with January. He correctly identified a daily and pen. IMPRESSION: She is seeing elderly male whose family report marked change in cognitive and physical functioning after a visit infection. He has shown decreased energy, increased confusion and has lost interest in several activities. Psychiatric symptoms including increased anxiety and obsessive worry. On bedside cognitive screening he does not appear to have major cognitive impairments orientation, concentration, attention or short-term memory. The psychiatric differential would include neuropsychologic sequelae from a COVID infection, new-onset mood disorder as well as the possibility of m ild neurocognitive impairment RECOMMENDATION: Awaiting the results of the and a neurological assessment, Psychiatry will follow. 08/13/21 15:26
[2021-08-13] MEDS: MIRTAZAPINE 15 MG TAB PO SCH (20:46)
[2021-08-14] MEDS: ENOXAPARIN 40 MG/0.4 ML SYRINGE SQ SCH (09:15)
--- NOTE | 2021-08-14 10:30 | P.PN ---
Subjective Progress Note Date: 08/14/21 Patient stated he did well. When I spoke to the nurse yesterday late in the afternoon she stated that he is having episodes of confusion therefore an EEG was ordered to rule out seizure or epileptiform activity Objective - Vital Signs Vital signs: Vital Signs Temp 97.7 F 08/14/21 09:14 Pulse 83 08/14/21 09:14 Resp 16 08/14/21 09:14 BP 133/84 08/14/21 09:14 Pulse Ox 95 08/14/21 09:14 FiO2 Intake & Output 08/13/21 08/14/21 08/14/21 18:59 06:59 18:59 Intake Total 118 Balance 118 Intake: Oral 118 Other: Voiding Method Toilet Toilet # Voids 1 2 # Bowel Movements 1 - Exam GENERAL: The patient is lying in bed and is not in acute distress. NEUROLOGICAL: Higher mental function: The patient is awake, alert, oriented to self, place and time. Patient is following commands. No aphasia and no neglect. Cranial nerves: The pupils are round, equal and reactive to light and accommodation. Visual bernal are full to confrontation throughout. Extraocular movement is intact no nystagmus is noted. Facial sensation is normal to touch throughout. The facial strength is normal throughout. Hearing is mildly decreased bilaterally to hand rub. Tongue is midline and moved [id number] without any difficulty. No dysarthria is noted. Shoulder shrug is normal bilaterally. Motor: The strength is 5 over 5 throughout. Normal tone and bulk. Cerebellum: Normal finger to nose heel to cabrera bilaterally. Sensation: Sensation is normal to touch throughout. Reflexes (right/left): 1+ throughout. Plantars are mute bilaterally. SOME OF THE WORK-UP DURING THIS ADMISSION: Vitamin B12 is 541 Serum folate is 11.70. Ammonia level is less than 9. AST and ALT is within normal limits MR the brain is reported as age-related changes of atrophy and chronic small vessel ischemia. Inflammatory changes within the mastoid air cells and sinuses. No evidence of a subacute infarct. I personally reviewed the MRI and agreed there is no acute or subacute ischemic stroke - Labs CBC & Chem 7: 08/13/21 08:57 08/13/21 08:57 Assessment and Plan Assessment: Reported abnormal CT over the left superior cerebellar hemisphere and age indeterminate. CT head is difficult to ascertain posterior circulation stroke because of artifact. MRI Brain is negative for acute or subacute ischemic stroke and likely CT finding was artifact. Acute psychosis Suicidal ideation Depression Plan: MRI the brain is negative for acute subacute stroke Preliminary routine EEG is within normal limits Q4 hour neuro checks. Psychiatry team is consulted From a neurologic perspective no further neurological workup is needed and patient is clear for discharge. Lobo Edgar M.D. Neuro-Hospitalist Time with Patient: Less than 30
--- NOTE | 2021-08-14 12:04 | EEG ---
ELECTROENCEPHALOGRAM REPORT DATE OF SERVICE: 08/14/2021. CLINICAL HISTORY: This is a 76-year-old gentleman with altered mental status. The video EEG is obtained to evaluate for seizure epileptiform activity. RELEVANT MEDICATION: The patient is not on any antiepileptic drug. EEG TYPE: A routine 21 channel EEG is performed with video using the 10/20 electrode placement system. DESCRIPTION: Wakefulness and drowsiness are obtained. During awake state the posterior- dominant rhythm consists of low to moderate voltage of 11-11.5 hertz activity that is well modulated and well sustained. There is no physiological stage 2 sleep activity. There is no focal slowing. Interictal and ictal is none. ACTIVATION PROCEDURE: Photic stimulation did not evoke a posterior driving response. There is no abnormality during the photic stimulation. Hyperventilation is not performed. CLINICAL INTERPRETATION: This is a normal routine EEG. There is no focal slowing, epileptiform discharge or seizure on the EEG. Clinical correlation is recommended. NEO / DOMONIQUE: [id number] / MTDD
--- NOTE | 2021-08-14 15:28 | P.CON ---
Consult Note - . 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 He had an episode of confusion yesterday evening and the attending ordeed an EEG for evaluation of possible epileptic activity. The EEG was normal. The MRI showed age-related changes of atrophy and chronic small vessel ischemia. The patient and his family also met with the court appointed trick rodeo rider regarding his involuntary hospitalization. I could not find a deferral notice in the chart so I presume that he did not agree to deferred the probate hearing. The probate hearing is scheduled for 08/15/2021. The patient was greatly distressed about the possibility of returning to the psychiatric unit. He had several complaints regarding the behavior other josselyn ents, the physical layout, his safety and the sleeping arrangements. He did not perseverate about the issues that brought him to the hospital and resulted in the admission to psychiatric unit. Mental status exam: He presented as a neatly groomed elderly vocation male who was pleasant on approach. He made eye contact and attended to the interview. He had a blunted but bright facial expression. He is alert and oriented to person, place and time. He had slight psychomotor retardation and a fine hand tremor. His gait was slow but steady. His speech was spontaneous with normal rate and rhythm. His affect was anxious but not intense or inappropriate. He denied suicidal ideation, wishes homicidal ideation. He expressed feelings of helplessness regarding this involuntary hospitalization. He did not assess her ruminate. He did not express ideas reference, paranoid ideation or delusions. His thinking was concrete but his associations were coherent, logical and goal directed. He denied hallucinations did not appear to be responding to internal stimuli. [facility] His total score was 22 out of 30; a score less than 26 is consistent with cognitive impairment. He showed impairment with visual spatial/executive functioning, attention, language fluency, abstraction and delayed recall. He had difficulty copying the cube and drawing "11:10" on a clock. He could not repeat 3 digits backwards. He had difficulty abstracting the more difficult similarities. He only recalled 3 of the 5 primary words. Assessment: He is an elderly male admitted to psychiatry involuntarily with history of change in functioning with increased behavior, agitation and confusion. He was transferred to medicine for evaluation of medical cause of his confusion. So far, the medical and neurological violation has not demonstrated acute problems although he has chronic small vessel disease on MRI and an old injury to left superior cerebellar hemisphere. His performance on the [place] Cognitive Assessment is consistent with a dementia. I suspect that he is showing behavioral and emotional changes associated with early stages of cognitive decline. Plan: He does not need inpatient psychiatric treatment at this time. However, he will need to remain in the hospital until this probate hearing. Psychiatry will continue to follow.
[2021-08-14] MEDS: MIRTAZAPINE 15 MG TAB PO SCH (20:11)
[2021-08-15 04:14] VITALS: RESP 18
[2021-08-15 08:21] LABS: Basophils # (A) 0.1 k/uL (0-0.2); Basophils % (A) 1 %; Eosinophils # (A) 0.7 k/uL (0-0.7); Eosinophils % (A) 10 %; HCT 49.3 % (39.0-53.0); HGB 15.8 gm/dL (13.0-17.5); Lymphocytes # (A) 1.1 k/uL (1.0-4.8); Lymphocytes % (A) 17 %; MCH 31.4 pg (25.0-35.0); MCHC 32.2 g/dL (31.0-37.0); MCV 97.7 fL (80.0-100.0); Mean Platelet Volume 7.1; Monocytes # (A) 0.5 k/uL (0-1.0); Monocytes % (A) 7 %; Neutrophils # (A) 4.2 k/uL (1.3-7.7); Neutrophils % (A) 62 %; Platelet Count 274 k/uL (150-450); RBC 5.04 m/uL (4.30-5.90); RDW 13.2 % (11.5-15.5); WBC 6.8 k/uL (3.8-10.6)
[2021-08-15 08:22] VITALS: BP 134/83; PULSE 81; TEMP 98.8
[2021-08-15] MEDS: ENOXAPARIN 40 MG/0.4 ML SYRINGE SQ SCH (08:26)
[2021-08-15 08:37] LABS: African American GFR (CKD) >90 (>60 ml/min/1.73 sqM); Anion Gap 6 mmol/L; Blood Urea Nitrogen 17 mg/dL (9-20); Calcium 10.2 mg/dL (8.4-10.2); Carbon Dioxide 28 mmol/L (22-30); Chloride 107 mmol/L (98-107); Glucose 111 mg/dL (74-99); Non-African American GFR(CKD) 82 (>60 ml/min/1.73 sqM); Sodium 141 mmol/L (137-145)
[2021-08-15 09:11] LABS: Potassium 4.3 mmol/L (3.5-5.1)
--- NOTE | 2021-08-15 13:58 | P.PN ---
Subjective Progress Note Date: 08/14/21 Principal diagnosis: pychosis Doing well. He denied any suicidal thoughts or ideations. No anxiety currently. No pain or sob. Objective - Vital Signs Vital signs: Vital Signs Temp 98.8 F 08/15/21 08:00 Pulse 81 08/15/21 08:00 Resp 18 08/15/21 08:00 BP 134/83 08/15/21 08:00 Pulse Ox 94 L 08/15/21 08:00 FiO2 Intake & Output 08/14/21 08/15/21 08/15/21 18:59 06:59 18:59 Intake Total 860 120 Balance 860 120 Intake: IV 20 Invasive Line 1 20 Oral 840 120 Other: Voiding Method Toilet # Voids 2 1 # Bowel Movements 1 - Exam Constitutional: No acute distress, conversant, pleasant Eyes:Anicteric sclerae, moist conjunctiva, no lid-lag, PERRLA, ENMT: Oropharynx clear, no erythema, exudates Neck: Supple, FROM, no masses, or JVD, No carotid bruits, No thyromegaly Lungs: Clear to auscultation, Clear to percussion, Normal respiratory effort, no accessory muscle use Cardiovascular: Heart regular in rate and rhythm, No murmurs, gallops, or rubs, No peripheral edema Abdominal: Soft, Nontender, no guarding, rebound or rigidity, Normoactive bowel sounds, No hepatomegaly, No splenomegaly, No palpable mass Skin: Normal temperature, tone, texture, turgor, no induration, No subcutaneous nodules, No rash, lesions, No ulcers Extremities: No digital cyanosis, No clubbing, Pedal pulses intact and symmetrical, Radial pulses intact and symmetrical, No calf tenderness Neuro: Muscles Strength 5/5 in all 4 extremities, Sensation to light touch grossly present throughout, Cranial nerves II-XII grossly intact, no focal sensory deficits - Labs CBC & Chem 7: 08/15/21 07:35 08/15/21 07:35 Labs: Abnormal Lab Results - Last 24 Hours (Table) 08/15/21 Range/Units 07:35 Glucose 111 H (74-99) mg/dL Assessment and Plan Plan: Acute confusion with abnormal CT head Brain MRI nothing acute EEG ok D/w neurology. Ammonia level ordered, normal. Cleared by neuro Left inguinal hernia Management by surgery in the office. No signs of strangulation or bowel obstruction. Suicidal ideation/acute psychosis Seen by psych, likely has early dementia. DVT prophylaxis Lovenox
--- NOTE | 2021-08-15 14:01 | P.DS ---
Providers Date of admission: 08/12/21 13:15 Expected date of discharge: 08/15/21 Attending physician: Hilario Melendez MD Consults: 08/12/21 13:30 Consult Physician Routine Consulting Provider: Katarzyna Mckeon Consult Reason/Comments: stroke Do you want consulting provider notified?: Yes 08/12/21 13:47 Consult Physician Routine Consulting Provider: Vijay Arteaga Consult Reason/Comments: psychosis Do you want consulting provider notified?: Already Contacted Primary care physician: Stated None Hospital Course: 76-year-old male who was earlier admitted to inpatient psychiatric facility due to confusion, paranoia, suicidal ideations wanting to hurt himself by taking a cyanide pill. He was recently treated for urinary tract infection. However symptoms of confusion did not fuad and he continued to be fretful and anxious. 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 He denied loss of consuciousness or head trauma. Denied focal weakness or numbness. No fevers or chills. No nausea or vomiting. I was called to see him in the mental health unit due to having painful left inguinal hernia that he was able to reduce himself. He appears to have very poor insight and judgment. While talking to him he claimed that he was seeing the devil in the tray of food in front of him. He denies any previous medical history and he reports that he does not take any medications at home. Due to the reported history of falling reported to the hospital by his son today, he had a head CT scan which showed age indeterminate injury to the left superior cerebellar hemisphere, stroke can't be ruled out. He was subsequently transferred to the floor for further management. Patient was admitted to the medical floor, he had an MRI of the brain that showed no acute abnormalities including stroke, no masses. He was seen by neurology service who also ordered an EEG which came back negative. Patient has been doing very well on the floor, he denied having any suicidal thoughts, he also denied any hallucinations. He seemed reasonable to me. Seems like his anxiety has calm down. I discussed the case with psychiatrist who thought that he has early dementia based on bedside mental health exam performed. He is going to be discharged today, I discussed safety measures with his . She stated that she will be with him the whole time at home. I will start him on aricept as well as fluphenazine for psychosis. He will need to follow up with psychiatry and neurology. Time for discharge 35 min Plan - Discharge Summary Discharge Rx Participant: Yes New Discharge Prescriptions: New fluPHENAZine [Prolixin] 1.5 mg PO BID 30 Days #60 tab Donepezil [Aricept] 10 mg PO HS 30 Days #30 tablet Discontinued Cephalexin [Keflex] 500 mg PO Q8H Discharge Medication List Donepezil [Aricept] 10 mg PO HS 30 Days #30 tablet 08/15/21 [Rx] fluPHENAZine [Prolixin] 1.5 mg PO BID 30 Days #60 tab 08/15/21 [Rx] Follow up Appointment(s)/Referral(s): Katarzyna Mckeon MD [STAFF PHYSICIAN] - 1 Week Patient Instructions/Handouts: Urinary Tract Infection in Men (DC), Stress (DC) Discharge/Stand Alone Forms: Who Do I Call?, Adult Foster Longterm List, Community Resources, Help In The Home
--- NOTE | 2021-08-15 14:48 | P.CON ---
Consult Note - . 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 The recipient right advisor assisted the family and obtained a deferral of the probate hearing. I emphasized that the patient will not return to this psychiatric unit. I explained my clinical impression to the patient and his . His was distressed when I talked about a neurocognitive disorder. I attempted to explain that the behavioral changes she and her family helps her maybe do to the neurocognitive disorder. Mental status exam: He was casually groomed and dressed in hospital gown. As usual, he was pleasant on approach. He made eye contact and appeared to attend to the interview. He is a blunted but bright facial expression. He showed no abnormality of psychomotor activity. A slight tremor. His speech was spontaneous with decreased rate and volume. His affect was stable and appropriate. He did not express suicidal ideation or wishes. He denied homicidal ideation. He express ideas reference, paranoid ideation or delusions. His thinking was concrete but his associations were coherent, logical and goal directed. He denied hallucinations did not appear to be responding to internal stimuli. Assessment: Overall his psychiatric status improve from admission. Plan: Continue with low dose of Prolixin. The hospitalist started Aricept 10 mg daily. The patient has a follow-up appointment scheduled with counts include 234 beds at the [facility].
== END 2021-08-15 14:34 | disposition home or self-care (01) | DRG 65 ==
LOC: 3SCARD 13:15
PROVIDERS: ADMIT Internal Medicine; ATTEND Internal Medicine
PROC: 4A10X4Z Monitoring of Central Nervous Electrical Activity, External Approach (ICD-10-PCS; principal; 2021-08-14)
DX: I63.542 Cerebral infarction due to unspecified occlusion or stenosis of left cerebellar artery (principal); R45.851 Suicidal ideations; F23 Brief psychotic disorder; F03.91 Unspecified dementia, unspecified severity, with behavioral disturbance; G31.89 Other specified degenerative diseases of nervous system; Z20.822 Contact with and (suspected) exposure to COVID-19; F32.A Depression, unspecified; F41.9 Anxiety disorder, unspecified; F60.0 Paranoid personality disorder; Z87.440 Personal history of urinary (tract) infections; Z91.81 History of falling
CPT/HCPCS: 70551; 80048; 80053; 82140; 82607; 82746; 83735; 84100; 85025; 95819

== ENCOUNTER 2021-08-20 15:23 | Emergency (ER) | payer MEDICARE, OTHER ==
[2021-08-20 17:03] VITALS: PULSE 72; TEMP 97.4
--- NOTE | 2021-08-20 18:51 | ED ---
General Adult HPI - General Chief complaint: Abdominal Pain Stated complaint: Hernia Time Seen by Provider: 08/20/21 18:18 Source: patient, family, RN notes reviewed Mode of arrival: EMS Limitations: altered mental status - History of Present Illness Initial comments: Patient is a pleasant 76-year-old male presenting to the emergency department with concerns for his hernia. Patient does have left inguinal hernia. Patient has seen a doctor for this. Unclear patient has sees a surgeon but they were going to get a referral. Patient states he is able to push it back in however it slides out again. Patient denies any pain other than when he is pushing it back in. Family adds he had some shaking earlier today. Patient never lost consciousness. - Related Data Previous Rx's Medication Instructions Recorded Donepezil [Aricept] 10 mg PO HS 30 Days #30 tablet 08/15/21 fluPHENAZine [Prolixin] 1.5 mg PO BID 30 Days #60 tab 08/15/21 Allergies Allergy/AdvReac Type Severity Reaction Status Date / Time No Known Allergies Allergy Verified 08/20/21 17:04 Review of Systems ROS Statement: Those systems with pertinent positive or pertinent negative responses have been documented in the HPI. ROS Other: All systems not noted in ROS Statement are negative. Constitutional: Denies: fever Eyes: Denies: eye pain ENT: Denies: ear pain Respiratory: Denies: cough Cardiovascular: Denies: chest pain Endocrine: Denies: fatigue Gastrointestinal: Reports: constipation Genitourinary: Denies: dysuria Musculoskeletal: Denies: back pain Skin: Denies: rash Neurological: Denies: weakness Past Medical History Past Medical History: Dementia History of Any Multi-Drug Resistant Organisms: None Reported Past Surgical History: Tonsillectomy Additional Past Surgical History / Comment(s): Broken ar with surgery, hernia re pair as Past Anesthesia/Blood Transfusion Reactions: No Reported Reaction Past Psychological History: No Psychological Hx Reported Smoking Status: Never smoker Past Alcohol Use History: None Reported Past Drug Use History: None Reported General Exam Limitations: altered mental status General appearance: alert, in no apparent distress Head exam: Present: normocephalic Eye exam: Present: normal appearance, PERRL Neck exam: Present: normal inspection Respiratory exam: Present: normal lung sounds bilaterally Cardiovascular Exam: Present: regular rate, normal rhythm GI/Abdominal exam: Present: soft. Absent: distended, tenderness, guarding, rebound, rigid exam: Present: other (Large left inguinal hernia extending to the scrotal sac.) Extremities exam: Present: pedal edema. Absent: calf tenderness Neurological exam: Present: alert Psychiatric exam: Present: normal affect, normal mood Skin exam: Present: normal color Course Vital Signs 08/20/21 16:59 Temperature 97.4 F L Pulse Rate 72 Respiratory 80 H Rate Blood Pressure 147/95 O2 Sat by Pulse 97 Oximetry EKG Findings - EKG Comments: EKG Findings:: Sinus rhythm with a rate of 74. For screening AV block ID of 223. QRS 108. QT 36. QTc 414. Normal axis. Normal QRS. No acute ST change. Procedures - Procedures Initial comment: left Inguinal hernia is reduced without complication however does slide back out just following this. Medical Decision Making - Medical Decision Making Patient reevaluated and resting comfortably in bed. Patient and family updated. Case was discussed with Dr. Grissom who will see patient tomorrow at 1 PM at the office. - Lab Data Result diagrams: 08/20/21 18:59 08/20/21 18:59 Lab Results 08/20/21 08/20/21 08/20/21 Range/Units 18:59 18:59 19:48 WBC 9.1 (3.8-10.6) k/uL RBC 4.79 (4.30-5.90) m/uL Hgb 15.2 (13.0-17.5) gm/dL Hct 45.9 (39.0-53.0) % MCV 95.8 (80.0-100.0) fL MCH 31.8 (25.0-35.0) pg MCHC 33.2 (31.0-37.0) g/dL RDW 13.0 (11.5-15.5) % Plt Count 292 (150-450) k/uL MPV 7.5 Neutrophils % 74 % Lymphocytes % 11 % Monocytes % 7 % Eosinophils % 5 % Basophils % 1 % Neutrophils # 6.8 (1.3-7.7) k/uL Lymphocytes # 1.0 (1.0-4.8) k/uL Monocytes # 0.6 (0-1.0) k/uL Eosinophils # 0.5 (0-0.7) k/uL Basophils # 0.1 (0-0.2) k/uL Sodium 138 (137-145) mmol/L Potassium 4.2 (3.5-5.1) mmol/L Chloride 104 (98-107) mmol/L Carbon Dioxide 30 (22-30) mmol/L Anion Gap 4 mmol/L BUN 13 (9-20) mg/dL Creatinine 0.65 L (0.66-1.25) mg/dL Est GFR (CKD-EPI)AfAm >90 (>60 ml/min/1.73 sqM) Est GFR (CKD-EPI)NonAf >90 (>60 ml/min/1.73 sqM) Glucose 98 (74-99) mg/dL Calcium 10.3 H (8.4-10.2) mg/dL Total Bilirubin 0.7 (0.2-1.3) mg/dL AST 25 (17-59) U/L ALT 23 (4-49) U/L Alkaline Phosphatase 87 (38-126) U/L Total Protein 6.7 (6.3-8.2) g/dL Albumin 4.0 (3.5-5.0) g/dL Amylase 44 (30-110) U/L Lipase 200 (23-300) U/L Urine Color Light Yellow Urine Appearance Cloudy (Clear) Urine pH 7.0 (5.0-8.0) Ur Specific [place] 1.010 (1.001-1.035) Urine Protein Negative (Negative) Urine Glucose (UA) Negative (Negative) Urine Ketones 1+ H (Negative) Urine Blood Small H (Negative) Urine Nitrite Negative (Negative) Urine Bilirubin Negative (Negative) Urine Urobilinogen <2.0 (<2.0) mg/dL Ur Leukocyte Esterase Negative (Negative) Urine RBC 34 H (0-5) /hpf Urine WBC 2 (0-5) /hpf Amorphous Sediment Moderate H (None) /hpf Urine Mucus Rare H (None) /hpf - Radiology Data Radiology results: image reviewed (Abdominal x-ray shows nonacute abdomen) Disposition Clinical Impression: Inguinal hernia Disposition: HOME SELF-CARE Condition: Stable Instructions (If sedation given, give patient instructions): Inguinal Hernia (ED) Additional Instructions: Please follow-up tomorrow with Dr. Grissom at 1 PM in his office, number provided. Return for increased pain, swelling, redness, vomiting, fever, worsening symptoms or other concerns. Is patient prescribed a controlled substance at d/c from ED?: No Referrals: Edilberto Grissom MD [STAFF PHYSICIAN] - 1-2 days Amauri Bryant MD [STAFF PHYSICIAN] - 1-2 days Time of Disposition: 20:30
[2021-08-20 19:53] LABS: Basophils # (A) 0.1 k/uL (0-0.2); Basophils % (A) 1 %; Eosinophils # (A) 0.5 k/uL (0-0.7); Eosinophils % (A) 5 %; HCT 45.9 % (39.0-53.0); HGB 15.2 gm/dL (13.0-17.5); Lymphocytes % (A) 11 %; MCH 31.8 pg (25.0-35.0); MCHC 33.2 g/dL (31.0-37.0); MCV 95.8 fL (80.0-100.0); Mean Platelet Volume 7.5; Monocytes # (A) 0.6 k/uL (0-1.0); Monocytes % (A) 7 %; Neutrophils # (A) 6.8 k/uL (1.3-7.7); Neutrophils % (A) 74 %; Platelet Count 292 k/uL (150-450); RBC 4.79 m/uL (4.30-5.90); WBC 9.1 k/uL (3.8-10.6)
--- NOTE | 2021-08-20 20:12 | XR ---
EXAMINATION TYPE: XR KUB DATE OF EXAM: 08/20/2021 COMPARISON: NONE HISTORY: Pain TECHNIQUE: 2 views upright FINDINGS: Bowel gas pattern is normal. No sign of intestinal obstruction or pneumoperitoneum. Fecal p attern is normal. Lung bases are clear. No pathologic calcifications seen over the kidneys. There are phleboliths in the pelvis on the left side. IMPRESSION: Nonacute abdomen.
[2021-08-20 20:13] LABS: ALT 23 U/L (4-49); AST 25 U/L (17-59); African American GFR (CKD) >90 (>60 ml/min/1.73 sqM); Alkaline Phosphatase 87 U/L (38-126); Amylase 44 U/L (30-110); Anion Gap 4 mmol/L; Blood Urea Nitrogen 13 mg/dL (9-20); Calcium 10.3 mg/dL (8.4-10.2); Carbon Dioxide 30 mmol/L (22-30); Chloride 104 mmol/L (98-107); Glucose 98 mg/dL (74-99); Lipase 200 U/L (23-300); Non-African American GFR(CKD) >90 (>60 ml/min/1.73 sqM); Potassium 4.2 mmol/L (3.5-5.1); Sodium 138 mmol/L (137-145); Total Bilirubin 0.7 mg/dL (0.2-1.3); Total Protein 6.7 g/dL (6.3-8.2)
[2021-08-20 20:16] LABS: Amorphous Sediment,Urine Moderate /hpf; Appearance,Urine Cloudy (Clear); Bilirubin,Urine Negative (Negative); Blood,Urine Small (Negative); Color,Urine Light Yellow; Glucose,Urine (UA) Negative (Negative); Ketones,Urine 1+ (Negative); Leukocyte Esterase,Urine Negative (Negative); Mucus,Urine Rare /hpf; Nitrite,Urine Negative (Negative); Protein,Urine Negative (Negative); RBC,Urine 34 /hpf (0-5); Urobilinogen,Urine <2.0 mg/dL (<2.0); WBC,Urine 2 /hpf (0-5)
[2021-08-20 20:50] VITALS: BP 157/96; RESP 19
== END 2021-08-20 21:22 | disposition home or self-care (01) ==
LOC: EC 15:23
DX: K40.90 Unilateral inguinal hernia, without obstruction or gangrene, not specified as recurrent (principal); F03.90 Unspecified dementia, unspecified severity, without behavioral disturbance, psychotic disturbance, mood disturbance, and anxiety; Z79.899 Other long term (current) drug therapy
CPT/HCPCS: 36415; 74018; 80053; 81001; 82150; 83690; 85025; 93005; 99284

== ENCOUNTER 2021-08-28 07:13 | Day surgery (SDC) | payer MEDICARE, OTHER ==
[2021-08-22 13:51] VITALS: BMI 24.7
[~2021-08-28 07:13] MED LIST: ACETAMINOPHEN TAB 500 MG TAB PO PRN; HEPARIN SODIUM,PORCINE/PF 5,000 UNIT/0.5 ML SYRINGE SQ PRN
[2021-08-28] MEDS ORDERED: LACTATED RINGERS 1,000 ML IV ONE (07:46)
[2021-08-28] MEDS ORDERED: ACETAMINOPHEN TAB 500 MG TAB ONE (08:02)
[2021-08-28] MEDS ORDERED: HEPARIN SODIUM,PORCINE/PF 5,000 UNIT/0.5 ML SYRINGE SQ ONE (08:02)
[2021-08-28 08:05] LABS: Glucose,Whole Blood 101 mg/dL (70-110)
--- NOTE | 2021-08-28 09:12 | P.GSHP ---
History of Present Illness H&P Date: 08/28/21 Chief Complaint: Left inguinal hernia Is a 76-year-old male developed a large left inguinal hernia. The hernia is intermittently incarcerated. Patient presents today for open repair. Past Medical History Past Medical History: Dementia Additional Past Medical History / Comment(s): newly diagnosed dementia History of Any Multi-Drug Resistant Organisms: None Reported Past Surgical History: Hernia Repair, Orthopedic Surgery, Tonsillectomy Additional Past Surgical History / Comment(s): Broken arm with surgery, hernia repair as infant Past Anesthesia/Blood Transfusion Reactions: No Reported Reaction Past Psychological History: No Psychological Hx Reported Smoking Status: Never smoker Past Alcohol Use History: None Reported Past Drug Use History: None Reported - Past Family History Mother Family Medical History: No Reported History Medications and Allergies Home Medications Medication Instructions Recorded Confirmed Type Donepezil [Aricept] 10 mg PO HS 30 Days #30 tablet 08/15/21 08/22/21 Rx fluPHENAZine [Prolixin] 1.5 mg PO BID 30 Days #60 tab 08/15/21 08/22/21 Rx Allergies Allergy/AdvReac Type Severity Reaction Status Date / Time No Known Allergies Allergy Verified 08/28/21 07:47 Surgical - Exam Vital Signs Temp Pulse Resp BP Pulse Ox 97.3 F L 73 16 168/100 96 08/28/21 07:48 08/28/21 07:48 08/28/21 07:48 08/28/21 07:48 08/28/21 07:48 - General well developed, well nourished, no distress - Eyes PERRL - ENT normal pinna - Neck no masses - Respiratory normal expansion - Cardiovascular Rhythm: regular - Abdomen Abdomen: soft Hernia: inguinal (Large left inguinal hernia) Assessment and Plan Assessment: Large left inguinal hernia. We'll perform open repair.
[2021-08-28] MEDS ORDERED: LIDOCAINE 2% INJ 20 MG/ML (2 ML VIAL) ONE (09:35)
[2021-08-28] MEDS ORDERED: KETOROLAC 15 MG/ML 1 ML VIAL ONE (09:35)
[2021-08-28] MEDS ORDERED: fentaNYL (PF) 50 MCG/ML 2 ML AMP ONE (09:35)
[2021-08-28] MEDS ORDERED: PHENYLEPHRINE-0.9% NACL SYG 1,000 MCG/10 ML SYRINGE ONE (09:35)
[2021-08-28] MEDS ORDERED: PROPOFOL 10 MG/ML 20 ML VIAL IV ONE (09:35)
[2021-08-28 10:43] VITALS: TEMP 987.3
[2021-08-28] MEDS ORDERED: HYDROmorphone 0.5 MG/0.5 ML SYRINGE IVP ONE (10:57)
[2021-08-28 11:04] VITALS: RESP 17
[2021-08-28 11:48] VITALS: BP 168/97; PULSE 61
--- NOTE | 2021-08-31 10:17 | P.OP ---
Date of Procedure: 08/28/21 Preoperative Diagnosis: Large left inguinal hernia Postoperative Diagnosis: Large left inguinal hernia Procedure(s) Performed: Open repair of large left inguinal hernia Left orchiectomy Transversus abdominis plane block Anesthesia: NATHALY Surgeon: Edilberto Grissom Estimated Blood Loss (ml): 5 Pathology: other (Testicle) Condition: stable Disposition: PACU Description of Procedure: The patient's placed the operating table in the supine position. He received general anesthesia. His abdomen was prepped and draped usual fashion. The patient received a tap block with 1% local Xylocaine in 4 quadrants. The patient had a very large left internal hernia. The skin was incised in the left groin. Using blunt sharp dissection the hernia sac was then dissected free from some taste tissues. The fascia external oblique was opened with pair metastases months scissors. The patient had a very large inguinal hernia. Due to the size of the defect in the inguinal floor was decided perform an orchiectomy. The hernia sac was then dissected free from the spermatic vessels. The spermatic vessels underwent high ligation with a Veronica clamp and suture-ligated with 0 silk ties. The specimens of pathology. The hernia contents were reduced into the perineal cavity. And then the fascial defect was visualized. A piece of Prolene mesh was placed in the floor of the inguinal canal. This was secured to the inguinal ligament and transversalis fascia. Fascia external oblique was then closed with 0 Vicryl. Patient wound was inspected Mrs. There is no bleeding seen. Fuad's fascia closed with 2-0 Vicryl. Skin was closed with 3- 0 Monocryl suture. Dermabond was applied. Patient top she will was sent to recovery room in stable condition.
== END 2021-08-28 12:29 | disposition home or self-care (01) ==
LOC: OR 07:13
PROVIDERS: ATTEND Surgery
DX: K40.90 Unilateral inguinal hernia, without obstruction or gangrene, not specified as recurrent (principal); F03.90 Unspecified dementia, unspecified severity, without behavioral disturbance, psychotic disturbance, mood disturbance, and anxiety; Z79.899 Other long term (current) drug therapy
CPT/HCPCS: 88305; 49505; 54520; C1781; J0690; J3010; J1885; J2370; J2704; J1170; J1644; J2001

== ENCOUNTER 2021-12-01 19:31 | Emergency (ER) | payer MEDICARE, OTHER ==
--- NOTE | 2021-12-01 20:04 | ED ---
General Adult HPI - General Chief complaint: Fall Stated complaint: Fall Time Seen by Provider: 12/01/21 19:34 Source: patient, family, EMS, RN notes reviewed, old records reviewed Mode of arrival: EMS - History of Present Illness Initial comments: 76-year-old male presenting status post fall. Patient is transported by paramedics after ground-level fall resulting in head trauma. Patient was apparently stunned for some time but did not lose consciousness. His states he fell backwards striking his head. No anticoagulation. Stable vitals during transport. Patient is states that he has had a decline over the past several months. They're working with the primary care physician as well as psychiatrist for some increased delusions and poor appetite. There is question of cognitive decline and dementia. There's been no reported fever. No vomiting. No pain complaints. - Related Data Previous Rx's Medication Instructions Recorded Acetaminophen Tab [Tylenol] 650 mg PO Q6HR PRN tab 10/16/21 Famotidine [Pepcid] 10 mg PO BID tab 10/16/21 QUEtiapine FUMARATE [SEROquel] 12.5 mg PO HS #30 tablet 10/16/21 Tamsulosin [Flomax] 0.4 mg PO PC-BRKFST cap 10/16/21 busPIRone HCL [Buspirone HCl] 7.5 mg PO TID #90 tab 10/16/21 cefUROXime axetiL [Cefuroxime] 500 mg PO BID 5 Days #10 tab 10/16/21 Allergies Allergy/AdvReac Type Severity Reaction Status Date / Time No Known Allergies Allergy Verified 12/01/21 19:44 Review of Systems ROS Statement: Those systems with pertinent positive or pertinent negative responses have been documented in the HPI. ROS Other: All systems not noted in ROS Statement are negative. Past Medical History Past Medical History: Dementia Additional Past Medical History / Comment(s): newly diagnosed dementia History of Any Multi-Drug Resistant Organisms: None Reported Past Surgical History: Hernia Repair, Orthopedic Surgery, Tonsillectomy Additional Past Surgical History / Comment(s): Broken arm with surgery, hernia repair as infant Past Anesthesia/Blood Transfusion Reactions: No Reported Reaction Past Psychological History: No Psychological Hx Reported Smoking Status: Never smoker Past Alcohol Use History: None Reported Past Drug Use History: None Reported - Past Family History Mother Family Medical History: No Reported History General Exam General appearance: alert, in no apparent distress Head exam: Present: atraumatic, normocephalic Eye exam: Present: normal appearance, PERRL ENT exam: Present: mucous membranes moist Neck exam: Present: normal inspection. Absent: tenderness, meningismus Respiratory exam: Present: normal lung sounds bilaterally. Absent: respiratory distress, wheezes Cardiovascular Exam: Present: regular rate, normal rhythm GI/Abdominal exam: Present: soft. Absent: distended, tenderness, guarding Extremities exam: Present: normal inspection, normal capillary refill. Absent: pedal edema Neurological exam: Present: alert, oriented X3. Absent: CN II-XII intact, motor sensory deficit Psychiatric exam: Present: normal affect, normal mood Skin exam: Present: warm, dry, intact. Absent: cyanosis, diaphoretic Course Vital Signs 12/01/21 19:41 Temperature 97.6 F Pulse Rate 64 Respiratory 19 Rate Blood Pressure 106/81 O2 Sat by Pulse 96 Oximetry Medical Decision Making - Medical Decision Making 70 sexual male status post fall. Patient is alert and oriented, he initially does not agree to any testing but eventually agrees with CT imaging of the brain for his dramatic head injury. CT is negative for intracranial hemorrhage mass effect, no acute abnormality the cervical spine. Patient very eager for discharge. Return parameters discussed. Disposition Clinical Impression: Fall, Concussion Disposition: HOME SELF-CARE Condition: Good Instructions (If sedation given, give patient instructions): Fall Prevention for Older Adults (ED), Concussion (ED) Is patient prescribed a controlled substance at d/c from ED?: No Referrals: Daryl Hunter MD [Primary Care Provider] - 1-2 days Time of Disposition: 21:00
--- NOTE | 2021-12-01 20:54 | CT ---
EXAMINATION TYPE: CT brain cspine wo con DATE OF EXAM: 12/01/2021 COMPARISON: 08/12/2021 HISTORY: fall CT DLP: 1325.6 mGycm Automated exposure control for dose reduction was used. Images obtained of the brain and cervical spine without contrast. There is some cerebral cortical atrophy. There is no mass effect or midline shift. No sign of intracr anial hemorrhage. The calvarium is intact. The cervical vertebra have normal alignment. There is narrowing of the disc spaces from C3 to T1 with spurring of the endplates. Posterior elements are intact. There is some mild hypertrophic facet arth ropathy. Prevertebral soft tissues are intact. The skull base is intact. There is normal aeration of the mastoid sinuses. IMPRESSION: Multilevel cervical spine spondylotic changes. No fracture. Cerebral atrophy. No acute intracranial abnormality. Brain unchanged compared to old exam.
[2021-12-01 22:04] VITALS: BP 116/75; PULSE 65; RESP 18; TEMP 97.4
== END 2021-12-01 22:00 | disposition home or self-care (01) ==
LOC: EC 19:31
DX: S06.0X0A Concussion without loss of consciousness, initial encounter (principal); W18.39XA Other fall on same level, initial encounter; Y92.89 Other specified places as the place of occurrence of the external cause
CPT/HCPCS: 70450; 72125; 99284

== ENCOUNTER → 2022-05-30 | Outpatient (CLI) | payer MEDICARE, OTHER ==
[2022-05-30 12:32] LABS: African American GFR (CKD) >90 (>60 ml/min/1.73 sqM); Blood Urea Nitrogen 17 mg/dL (9-20); Non-African American GFR(CKD) 90 (>60 ml/min/1.73 sqM)
--- NOTE | 2022-05-30 13:56 | CT ---
EXAMINATION TYPE: CT abdomen wo/w con DATE OF EXAM: 05/30/2022 COMPARISON: 10/09/2021 HISTORY: renal cyst CT DLP: 1236 mGycm CONTRAST: CT scan of the abdomen is performed with Oral Contrast and without and with IV Contrast, patient inje cted with 100 mL of Isovue 300. FINDINGS: LUNG BASES-: No visible nodule. No infiltrate. LIVER/GB: No calcified gallstones. No space occupying hepatic lesion. Biliary tree is of normal ca liber. Curvilinear artifact limits evaluation of the liver and portions of the kidneys. Simple hepati c cyst within the midportion of the liver measures 5.5 cm. PANCREAS: No inflammation. No distinct mass. SPLEEN: No splenic enlargement. No lesion seen. ADRENALS: No nodule. No thickening. KIDNEYS/BLADDER: No hydronephrosis. No nephrolithiasis. Renal cystic changes are seen bilaterally u nchanged from prior study. No solid lesions detected. The largest cyst is noted within the upper pole of the left kidney and measures 6.3 cm. The largest cyst within the upper pole of the right kidney m easures 4.9 cm. Bilateral nonobstructing calculi noted. Nonobstructing left UPJ calculus measuring 6 mm. Largest lower pole calculus left kidney measures 9 mm. Largest calculus lower pole right kidney m easures 5 mm Urinary bladder grossly unremarkable. BOWEL: Normal appendix. Normal bowel caliber. No inflammation. GENITAL ORGANS: No gross abnormality. LYMPH NODES: No greater than 1cm abdominal or pelvic lymph nodes are appreciated. AORTA: No significant abnormality. OSSEOUS STRUCTURES: No significant abnormality is seen. OTHER: No significant additional abnormality is seen. IMPRESSION: 1. Nonobstructing nephrolithiasis. As noted there is a left UPJ calculus without difficulty obstructi on. 2. Renal cortical cysts unchanged from prior study. 3. Hepatic cyst.
== END | disposition home or self-care (01) ==
LOC: RADCTMAIN 11:27
PROVIDERS: ATTEND Urology
DX: N20.2 Calculus of kidney with calculus of ureter (principal); N28.1 Cyst of kidney, acquired; K76.89 Other specified diseases of liver
CPT/HCPCS: 82565; 84520; 74170; 36415; Q9967

== ENCOUNTER → 2022-07-11 | Outpatient (CLI) | payer MEDICARE, OTHER ==
[2022-07-11 20:51] LABS: Basophils # (A) 0.04 X 10*3/uL (0.00-0.10); Basophils % (A) 0.6 %; Eosinophils # (A) 0.05 X 10*3/uL (0.04-0.35); Eosinophils % (A) 0.8 %; HCT 40.8 % (39.6-50.0); HGB 12.7 g/dL (13.0-17.0); Immature Grans, Automated 0.3 %; Lymphocytes # (A) 1.01 X 10*3/uL (0.90-5.00); Lymphocytes % (A) 15.3 %; MCH 30.7 pg (27.0-32.0); MCHC 31.1 g/dL (32.0-37.0); MCV 98.6 fL (80.0-97.0); Mean Platelet Volume 9.9 fL (9.5-12.2); Monocytes # (A) 0.55 X 10*3/uL (0.20-1.00); Monocytes % (A) 8.3 %; NRBC Per 100 WBC 0 /100 WBCS (0.0-0.0); Neutrophils # (A) 4.92 X 10*3/uL (1.80-7.70); Neutrophils % (A) 74.7 %; Platelet Count 260 X 10*3/uL (140-440); RBC 4.14 X 10*6/uL (4.40-5.60); RDW 13.3 % (11.5-14.5); WBC 6.59 X 10*3/uL (4.50-10.00)
[2022-07-11 22:18] LABS: African American GFR (CKD) 99.9 (60.0-200.0); BUN/Creat Ratio 22.63 Ratio (12.00-20.00); Blood Urea Nitrogen 18.1 mg/dL (9.0-27.0); Non-African American GFR(CKD) 86.2 (60.0-200.0); Potassium 4.3 mmol/L (3.5-5.5)
== END | disposition home or self-care (01) ==
LOC: LABPAT 11:39
PROVIDERS: ATTEND Urology
DX: Z01.812 Encounter for preprocedural laboratory examination (principal); N21.0 Calculus in bladder; N20.0 Calculus of kidney; N20.1 Calculus of ureter; R31.29 Other microscopic hematuria
CPT/HCPCS: 36415; 80048; 85025; 87086

== ENCOUNTER 2022-07-17 11:16 | Day surgery (SDC) | payer MEDICARE, OTHER ==
--- NOTE | 2022-07-17 12:17 | XR ---
EXAMINATION TYPE: XR KUB DATE OF EXAM: 07/17/2022 11:34 AM CLINICAL HISTORY: Kidney stones. TECHNIQUE: Single supine KUB image of the abdomen obtained. COMPARISON: CT May 30, 2022. FINDINGS: Persistent 9 mm calculus left kidney lower pole level projecting just below the 12th rib. Smaller renal calculi bilaterally less well seen on this study. Overlying colonic fecal debris is not ed. Scattered bilateral pelvic phleboliths are redemonstrated Overall nonobstructive bowel gas pattern. Osseous structures are intact. IMPRESSION: As above.
[2022-07-17] MEDS ORDERED: DEXAMETHASONE SOD PHOSPHATE 4 MG/ML 1 ML VIAL IVP ONE (12:20)
[2022-07-17] MEDS ORDERED: LACTATED RINGERS 1,000 ML IV ONE ×2 (12:20→15:44)
[2022-07-17 12:22] LABS: Glucose,Whole Blood 90 mg/dL (70-110)
[2022-07-17] MEDS ORDERED: ONDANSETRON 4 MG/2 ML VIAL ONE (12:22)
--- NOTE | 2022-07-17 12:58 | P.GSHP ---
History of Present Illness H&P Date: 07/17/22 Chief Complaint: Hematuria The patient is a 77-year-old white male who underwent open repair of a large left inguinal hernia last year. A left orchiectomy was performed at that time. He has recent onset dementia. He was admitted with decreased appetite, weakness, and diarrhea. CT scan has shown bilateral renal cysts, bilateral renal calculi, and an enlarged prostate. His PSA level is 9.7 (free PSA level is 15%). He experiences intermittent gross hematuria. CT scan shows bilateral nonobstructing renal calculi, the largest being a 9 mm left lower pole renal calculus. A 6 mm left UPJ calculus was also seen. Cystoscopy shows trilobar BPH as well as a 1 cm bladder calculus. Past Medical History Past Medical History: No Reported History Additional Past Medical History / Comment(s): kidney stones, History of Any Multi-Drug Resistant Organisms: None Reported Past Surgical History: Hernia Repair, Orthopedic Surgery, Tonsillectomy Additional Past Surgical History / Comment(s): Broken arm with surgery, hernia repair as , inguinal hernia lft Past Anesthesia/Blood Transfusion Reactions: No Reported Reaction Smoking Status: Never smoker - Past Family History Mother Family Medical History: No Reported History Medications and Allergies Home Medications Medication Instructions Recorded Confirmed Type QUEtiapine FUMARATE [SEROquel] 12.5 mg PO HS #30 tablet 10/16/21 07/12/22 Rx Tamsulosin [Flomax] 0.4 mg PO PC-BRKFST cap 10/16/21 07/12/22 Rx busPIRone HCL [Buspirone HCl] 7.5 mg PO TID #90 tab 10/16/21 07/12/22 Rx Allergies Allergy/AdvReac Type Severity Reaction Status Date / Time No Known Allergies Allergy Verified 07/17/22 11:58 Surgical - Exam - General well developed, well nourished, no distress - Respiratory normal respiratory effort - Abdomen Abdomen: soft, non tender, no guarding, no rigid, no rebound - Genitourinary normal penis with no external lesions, testicles non-tender - Psychiatric oriented to time, oriented to person, oriented to place, speech is normal, memory intact Results - Imaging CT scan - abdomen: report reviewed, image reviewed Assessment and Plan (1) Calculus in bladder Status: Acute Code(s): N21.0 - CALCULUS IN BLADDER SNOMED Code(s): 69683409 (2) Calculus of kidney Status: Acute Code(s): N20.0 - CALCULUS OF KIDNEY SNOMED Code(s): 96916703 Plan: Cystoscopy, cystolithotripsy, left retrograde pyelogram, left ureteroscopy with holmium laser lithotripsy and stone basketing, left ureteral stent insertion. The procedure then reviewed in detail with the patient and his . They're aware of potential risks, which include anesthesia, bleeding, infection, inability to remove the calculi, ureteral injury, and postoperative urinary retention.
[2022-07-17] MEDS ORDERED: ePHEDrine 50 MG/ML 1 ML VIAL ONE (13:19)
[2022-07-17] MEDS ORDERED: PROPOFOL 10 MG/ML 20 ML VIAL IV ONE (13:19)
[2022-07-17] MEDS ORDERED: LIDOCAINE 2% INJ 20 MG/ML (2 ML VIAL) ONE (13:19)
[2022-07-17] MEDS ORDERED: SUCCINYLCHOLINE CHLORIDE 200 MG/10 ML VIAL IV ONE (13:19)
[2022-07-17] MEDS ORDERED: PHENYLEPHRINE-0.9% NACL SYG 1,000 MCG/10 ML SYRINGE ONE (13:19)
[2022-07-17] MEDS ORDERED: WATER FOR INJECTION, STERILE 10 ML VIAL IV ONE (13:19)
[2022-07-17] MEDS ORDERED: LABETALOL 5 MG/ML VIAL MDV ONE (13:19)
[2022-07-17] MEDS ORDERED: fentaNYL (PF) 50 MCG/ML 2 ML AMP ONE (13:19)
[2022-07-17] MEDS ORDERED: IOPAMIDOL-370 100ML BTL MISCELLANE ONE ×2 (13:54→14:12)
[2022-07-17 16:07] VITALS: TEMP 97
--- NOTE | 2022-07-17 16:08 | FL ---
EXAMINATION TYPE: FL guidance operating room DATE OF EXAM: 07/17/2022 CLINICAL HISTORY: Left-sided kidney stone TECHNIQUE: Fluoroscopy. COMPARISON: Abdominal x-ray earlier today FINDINGS: Fluoroscopic guidance was provided during left sided ureteroscopy with lithotripsy and geraldo nt insertion procedure performed by Dr. Ventura. A total of 3.27 minutes of fluoroscopic time was uti lized during the procedure and 3 spot images was acquired. Images obtained show bilateral placement o f left ureter stent. IMPRESSION: As Above. TOTAL DAP = 10.511 Gy x cm2.
--- NOTE | 2022-07-17 16:12 | P.OP ---
Date of Procedure: 07/17/22 Preoperative Diagnosis: Left renal calculi, bladder calculus Postoperative Diagnosis: Left renal calculus, left ureteral calculus, bladder calculus Procedure(s) Performed: Cystoscopy, cystolithotripsy, left ureteroscopy with Holmium laser lithotripsy and stone basketing, left ureteral stent insertion Anesthesia: NATHALY Surgeon: Marcus Ventura Estimated Blood Loss (ml): 20 IV fluids (ml): 1,000 Pathology: other (Calculus fragments, sent for chemical analysis) Condition: stable Disposition: PACU Indications for Procedure: The patient is a 77-year-old white male who underwent open repair of a large left inguinal hernia last year. A left orchiectomy was performed at that time. He has recent onset dementia. He was admitted with decreased appetite, weakness, and diarrhea. CT scan has shown bilateral renal cysts, bilateral renal calculi, and an enlarged prostate. His PSA level is 9.7 (free PSA level is 15%). He experiences intermittent gross hematuria. CT scan shows bilateral nonobstructing renal calculi, the largest being a 9 mm left lower pole renal calculus. A 6 mm left UPJ calculus was also seen. Cystoscopy shows trilobar BPH as well as a 1 cm bladder calculus. Preoperative KUB x-ray shows the left lower pole renal calculus, but not the UPJ calculus. Multiple pelvic phleboliths are seen. Operative Findings: 9 mm left lower pole renal calculus, 6 mm left distal ureteral calculus, 1 cm bladder calculus. All fragmented and removed. Description of Procedure: The patient was taken to the operating room and placed in the dorsolithotomy position, with legs supported in Osiel stirrups. The external genitalia was prepped and draped sterilely. The 30 lens was used to introduce the 21-American Dickens cystoscopic sheath through the urethra and into the bladder under direct vision. The prostatic urethra showed evidence of trilobar enlargement with a prominent median lobe. The bladder was examined in its entirety. Both ureteral orifices were normal anatomic location and configuration. No tumors or foreign bodies were seen, other than a 1 cm bladder calculus. The 272 holmium laser probe was passed through the cystoscope, and lithotripsy was performed. The calculus was fragmented, and all calculus fragments were removed through the cystoscope. There was no evidence of bladder trauma. A 6-American open-ended catheter was passed into the left ureteral orifice, and an attempt was made to perform a left retrograde pyelogram. However, this was unsuccessful due to angulation of the ureter. Therefore, an angle-tip 0.035 inch Glidewire was passed through the open-ended catheter. The ureteral orifice was cannulated, and the Glidewire was advanced up to the left renal pelvis. Some resistance to the passage of the calculus was noted within the distal ure ter, and as an 11/13-American ureteral access catheter was passed over the wire, resistance was met within the distal ureter suggestive of a calculus. The [employer] flexible ureteroscope was then passed through the ureteral access catheter sheath, up to the renal pelvis. Each calyx was examined. The only calculus found was a 9 mm left lower pole renal calculus. The 272 micron Holmium laser probe was passed through the ureteroscope, and lithotripsy was performed. The majority of the calculus was dusted. Once the calculus was smaller, a 0 tip basket was used to relocate the calculus to an upper pole calyx, where lithotripsy was completed. Several small fragments were removed using the 0 tip basket. All calculus fragments were removed, and pullout ureteroscopy was then performed. Although a left distal ureteral calculus was suspected, it was not confirmed. After removing the ureteral access catheter, an attempt was made to pass the flexible ureteroscope up to the calculus, over the Glidewire. However, the flexible ureteroscope would not pass through the left ureteral orifice. Next, the Dickens semirigid ureteroscope was advanced into the bladder under direct vision, but it was not possible to cannulate the left ureteral orifice and advance it into the ureter. Ultimately, the Glidewire was passed into the left ureter and up to the left renal pelvis, and the ureteral access catheter was passed over the wire, up to the left distal ureteral calculus. The semirigid ureteroscope was passed through the ureteral access catheter sheath, and the calculus was identified. The calculus was fragmented using the holmium laser, and all calculus fragments were removed using the 0 tip basket. There was no evidence of ureteral trauma. The Glidewire was passed up to the left renal pelvis, and after removing the ureteroscope and the ureteral access catheter sheath, the Glidewire was backloaded into the cystoscope, which was passed into the bladder. A 24 cm, 6-American double-J ureteral stent was placed over the wire. Proper stent positioning was verified fluoroscopically and endoscopically. The cystoscope was removed, and a 16-American coud-tip Roman catheter was placed. The return was pink tinged. The patient tolerated the procedure well and was taken to the recovery room in stable condition. [facility] Report: Procedure Acuity: Elective Stone Size and Location: 1 cm bladder calculus. 6 mm left distal ureteral calculus. 9 mm left lower pole renal calculus. Ureteral Dilation: No Ureteral Access Sheath Used: Yes Stone Sent for Analysis: Yes All Stones/Fragments Were Removed with a Basket: Yes Complications: No Preoperative Antibiotics Given: Yes Stent Placed: Yes If Stent Placed, Was String Left Attached: No If Stent Placed, When is it to be Removed: 1 week Discharge Medications: Tamsulosin, Toradol
[2022-07-17 16:17] VITALS: RESP 16
[2022-07-17 17:07] VITALS: BP 149/80; PULSE 53
== END 2022-07-17 17:27 | disposition home or self-care (01) ==
LOC: OR 11:16
PROVIDERS: ATTEND Urology
DX: N20.2 Calculus of kidney with calculus of ureter (principal); N21.0 Calculus in bladder; N40.1 Benign prostatic hyperplasia with lower urinary tract symptoms; Z90.49 Acquired absence of other specified parts of digestive tract; Z98.890 Other specified postprocedural states; Z79.899 Other long term (current) drug therapy; F41.9 Anxiety disorder, unspecified; F32.A Depression, unspecified
CPT/HCPCS: 52356; 82365; 74018; C1769; C1758; J0330; J1100; J0690; J2405; J3010; J2370; J2704; Q9967; J2001

== ENCOUNTER 2022-08-12 09:40 | Day surgery (SDC) | payer MEDICARE, OTHER ==
--- NOTE | 2022-08-11 22:07 | P.GSHP ---
History of Present Illness H&P Date: 08/11/22 Chief Complaint: Migrated left ureteral stent The patient is a 77-year-old white male who underwent open repair of a large left inguinal hernia last year. A left orchiectomy was performed at that time. He has recent onset dementia. He was admitted with decreased appetite, weakness, and diarrhea. CT scan has shown bilateral renal cysts, bilateral renal calculi, and an enlarged prostate. His PSA level is 9.7 (free PSA level is 15%). He experiences intermittent gross hematuria. CT scan shows bilateral nonobstructing renal calculi, the largest being a 9 mm left lower pole renal calculus. A 6 mm left UPJ calculus was also seen. Cystoscopy shows trilobar BPH as well as a 1 cm bladder calculus. He underwent cystolithotripsy, left ureteroscopy with laser lithotripsy recently. A left ureteral stent was placed, but this has migrated in a cephalad direction. - Constitutional Constitutional: Denies chills, Denies fever Past Medical History Past Medical History: Dementia Additional Past Medical History / Comment(s): kidney stones, History of Any Multi-Drug Resistant Organisms: None Reported Past Surgical History: Hernia Repair, Orthopedic Surgery, Tonsillectomy Additional Past Surgical History / Comment(s): Broken arm with surgery, hernia repair as infant, hernia inguinal repair, Past Anesthesia/Blood Transfusion Reactions: No Reported Reaction Smoking Status: Never smoker - Past Family History Mother Family Medical History: No Reported History Medications and Allergies Home Medications Medication Instructions Recorded Confirmed Type FLUoxetine HCL [PROzac] 20 mg PO DAILY 08/08/22 08/08/22 History Vit D(Unk) 1 tab PO DAILY 08/08/22 History risperiDONE 1 mg PO BID 08/08/22 08/08/22 History Allergies Allergy/AdvReac Type Severity Reaction Status Date / Time No Known Allergies Allergy Verified 07/17/22 11:58 Surgical - Exam - General well developed, well nourished, no distress - Respiratory normal respiratory effort - Abdomen Abdomen: soft, non tender, no guarding, no rigid, no rebound - Genitourinary normal penis with no external lesions, testicles non-tender - Psychiatric oriented to time, oriented to person, oriented to place, speech is normal, memory intact Assessment and Plan (1) Calculus of kidney Status: Acute Code(s): N20.0 - CALCULUS OF KIDNEY SNOMED Code(s): 35255963 Plan: Cystoscopy, left ureteroscopy with removal of left ureteral calculus. Risks include anesthesia, infection, bleeding, ureteral injury, and inability to remove the stent.
[~2022-08-12 09:40] MED LIST changes: -ACETAMINOPHEN TAB 500 MG TAB PO PRN; +DEXAMETHASONE SOD PHOSPHATE 4 MG/ML 1 ML VIAL IV ONE; -HEPARIN SODIUM,PORCINE/PF 5,000 UNIT/0.5 ML SYRINGE SQ PRN; +HYDROmorphone 0.5 MG/0.5 ML SYRINGE IVP PRN; +LACTATED RINGERS 1,000 ML IV SCH; +LIDOCAINE 1% (10MG/ML) FOR IV START INTRADERMA PRN; +ONDANSETRON 4 MG/2 ML VIAL IVP ONE; +droPERidol 5 MG/2 ML VIAL IVP ONE
--- NOTE | 2022-08-12 10:03 | XR ---
EXAMINATION TYPE: XR KUB DATE OF EXAM: 08/12/2022 HISTORY: Pain Comparison: None.Single KUB is submitted for interpretation. Findings: Right renal calculi: Right kidney obscured by overlying bowel content. Right ureteral calculi: None Visualized. Left renal calculi: Calculus overlying lower pole of the left kidney is no longer visualized. Left ureteral calculi: Left ureteral stent noted to be in place. No definite calculi along the stent at this time. Pelvic calcifications: Multiple pelvic calcifications redemonstrated with a large right hemipelvic c alculus no longer visualized at this time as well as a smaller left hemipelvic calcification. Multipl e calcifications reflect phlebolith formation. Bowel gas pattern is unremarkable. No free air. No mass effects. IMPRESSION: 1. As above
[2022-08-12 10:57] VITALS: TEMP 97.1
[2022-08-12] MEDS ORDERED: LIDOCAINE 2% INJ 20 MG/ML (2 ML VIAL) ONE (11:27)
[2022-08-12] MEDS ORDERED: fentaNYL (PF) 50 MCG/ML 2 ML AMP ONE (11:27)
[2022-08-12] MEDS ORDERED: KETAMINE 10 MG/ML 20 ML VIAL ONE (11:27)
[2022-08-12] MEDS ORDERED: PROPOFOL 10 MG/ML 20 ML VIAL IV ONE (11:27)
--- NOTE | 2022-08-12 12:23 | P.OP ---
Date of Procedure: 08/12/22 Preoperative Diagnosis: Left UPJ calculus, retained left ureteral stent Postoperative Diagnosis: Same Procedure(s) Performed: Cystoscopy, left ureteroscopy with left ureteral stent removal Anesthesia: MAC Surgeon: Marcus Ventura Estimated Blood Loss (ml): 10 IV fluids (ml): 300 Pathology: none sent Condition: stable Disposition: PACU Indications for Procedure: The patient is a 77-year-old white male who underwent open repair of a large left inguinal hernia last year. A left orchiectomy was performed at that time. He has recent onset dementia. He was admitted with decreased appetite, weakness, and diarrhea. CT scan has shown bilateral renal cysts, bilateral renal calculi, and an enlarged prostate. His PSA level is 9.7 (free PSA level is 15%). He experiences intermittent gross hematuria. CT scan shows bilateral nonobstructing renal calculi, the largest being a 9 mm left lower pole renal calculus. A 6 mm left UPJ calculus was also seen. Cystoscopy shows trilobar BPH as well as a 1 cm bladder calculus. He underwent cystolithotripsy, left ureteroscopy with laser lithotripsy recently. A left ureteral stent was placed, but this has migrated in a cephalad direction. He now comes for ureteroscopic removal of the stent. Operative Findings: Left ureteral stent successfully removed. Description of Procedure: The patient was taken to the operating room and placed in the dorsolithotomy position, with his legs supported in Osiel stirrups. The external genitalia was prepped and draped sterilely. 2% lidocaine gel was administered intraurethrally. The 30 lens was used to introduce the 22-Occitan Stortz cystoscopic sheath through the urethra and into the bladder under direct vision. The anterior urethra appeared normal. The prostatic urethra was occluded with a trilobar configuration. Upon entering the bladder, the left ureteral orifice was identified. The stent could not be seen. An angle-tip 0.035 inch Glidewire was passed through the cystoscope. The left ureteral orifice was cannulated, and the Glidewire was advanced up to the left renal pelvis. The cystoscope was removed, and the [employer] semirigid ureteroscope was advanced into the bladder. The left ureteral orifice was cannulated, and the ureteroscope was advanced up to the stent, which was seen only 1 cm above the ureterovesical junction. A Graspit forcep was utilized, but the stent could not be successfully grasped with it. Therefore, a Piranha forcep was passed through the ureteroscope, and it was possible to grasp the distal end of the stent and remove it along with the ureteroscope. The patient tolerated the procedure well was taken to the recovery was stable condition.
[2022-08-12 12:44] VITALS: RESP 14
--- NOTE | 2022-08-12 12:47 | FL ---
Intraoperative/procedural fluoroscopic services were provided. Total fluoroscopy time is 2 seconds wi th a total of 1 submitted images to PACS. Please see the operative/procedural note for further detail s. DAP: [id number] mGym2
[2022-08-12] MEDS ORDERED: hydrALAZINE HCL 20 MG/ML 1 ML VIAL IV ONE (13:22)
[2022-08-12] MEDS ORDERED: hydrALAZINE HCL 20 MG/ML 1 ML VIAL ONE (13:23)
[2022-08-12 13:44] VITALS: BP 154/84; PULSE 57
== END 2022-08-12 13:58 | disposition home or self-care (01) ==
LOC: OR 09:40
PROVIDERS: ATTEND Urology
DX: N20.2 Calculus of kidney with calculus of ureter (principal); N28.1 Cyst of kidney, acquired; F03.90 Unspecified dementia, unspecified severity, without behavioral disturbance, psychotic disturbance, mood disturbance, and anxiety; N40.1 Benign prostatic hyperplasia with lower urinary tract symptoms; R31.0 Gross hematuria; Z90.89 Acquired absence of other organs; Z98.890 Other specified postprocedural states; Z87.442 Personal history of urinary calculi; Z79.899 Other long term (current) drug therapy
CPT/HCPCS: 52310; 74018; C1758 ×3; C1769; J0360; J1100; J3010; J2704; J2001

== ENCOUNTER → 2022-09-09 | Outpatient (CLI) | payer MEDICARE, OTHER ==
--- NOTE | 2022-09-09 17:04 | US ---
EXAMINATION TYPE: US thyroid st tissue head/neck DATE OF EXAM: 09/09/2022 COMPARISON: CT 12/01/2021 CLINICAL INDICATION: Male, 77 years old with history of E210 HYPERPARATHROIDISM; Hyperparathyroidism. GLAND SIZE: Right Lobe: 3.9 x 1.7 x 1.8 cm Overall Parenchyma: Slightly heterogeneous. Left Lobe: 5.3 x 1.3 x 1.8 cm Overall Parenchyma: Slightly heterogeneous. Isthmus Thickness: 0.4 cm NODULES RIGHT: # of nodules measured on right: One < 5mm nodule seen, not fully measured. LEFT: # of nodules measured on left: 1 1. 1.0 X 0.9 x 0.5 cm, lower mid, mixed cystic and solid Prior size: No prior TIRADS Score: 3 TIRADS Category 3: Mildly Suspicious Composition: Solid or almost completely solid (2 points). Echogenicity: Hyperechoic or isoechoic (1 point). Shape: Wider than tall (0 points). Margin: Smooth (0 points). Echogenic foci: None or large comet-tail artifacts (0 points) Recommendation: If >2.5cm: FNA; If >1.5cm: Follow up at 1,3,5 years ISTHMUS: # of nodules measured in the isthmus: 0 Bilateral neck scanned, no evidence of lymphadenopathy. Hypoechoic area seen posterior to the thyroid, question possible parathyroid tissue?: 1.7 x 0.7 x 0.6 cm. IMPRESSION: 1. Left thyroid nodule that meet criteria for follow-up. Additional subcentimeter right thyroid nodu le which can be assessed on future imaging. 2. Hypoechoic area posterior to the left thyroid gland without definitive CT correlate. Finding on C T is thought to represent fat. This does not have a nodular-like appearance. Nuclear medicine parathy roid scan. Attention follow-up imaging.
[2022-09-10 02:59] LABS: ALT 13 U/L (10-49); AST 18 U/L (14-35); Albumin 4.1 d/dL (3.8-4.9); Albumin/Globulin Ratio 1.71 Ratio (1.60-3.17); Alkaline Phosphatase 71 U/L (41-126); Carbon Dioxide 28.8 mmol/L (21.6-31.8); Chloride 104 mmol/L (96-109); Globulin 2.4 d/dL (1.6-3.3); Glucose 91 mg/dL (70-110); Sodium 142 mmol/L (135-145); Total Bilirubin 0.3 mg/dL (0.3-1.2); Total Protein 6.5 d/dL (6.2-8.2)
--- NOTE | 2022-09-10 19:18 | BD ---
EXAMINATION TYPE: Axial Bone Density DATE OF EXAM: 09/09/2022 CLINICAL HISTORY: 77 years old Male. ICD-10 CODE: E210 HYPERPARATHROIDISM Height: 66.5 in Weight: 130 lbs RISK FACTORS HISTORY OF: Active: limited MEDICATIONS: Additional Medications: anti-psychotic meds, fluoxetine EXAM MEASUREMENTS: Bone mineral densitometry was performed using the [employer] System. Bone mineral density as measured about the Lumbar spine is: ----- L1-L4(G/cm2): 1.003 T Score Values are as follows: ----- L1: -2.1 ----- L2: -2.0 ----- L3: -1.7 ----- L4: -0.6 ----- L1-L4: -1.5 Z Score Values are as follows: ----- L1: -1.0 ----- L2: -1.1 ----- L3: -0.7 ----- L4: 0.3 ----- L1-L4: -0.5 Bone mineral density baseline Bone mineral density about the R hip (g/cm2): 0.817 Bone mineral density about the L hip (g/cm2): 0.826 T Score values are as follows: -----R Neck: -2.8 -----L Neck: -3.0 -----R Total: -1.5 -----L Total: -1.4 Z Score values are as follows: -----R Neck: -1.3 -----L Neck: -1.6 -----R Total: -0.6 -----L Total: -0.5 Bone mineral density baseline FRAX%s: The graph provided illustrates a 12.8% chance for a major osteoporotic fx and a 6.9% chance f or the hips probability for fx in 10 years time. IMPRESSION: Osteoporosis (T Score less than -2.5). There is increased fracture risk and therapy is usually indicated based on age. Re-Screen 1-2 years. NOTE: T-SCORE=SD OF THE YOUNG ADULT MEAN.
== END | disposition home or self-care (01) ==
LOC: RADUSWWP 13:58
PROVIDERS: ATTEND Internal Medicine Endocrinology, Diabetes & Metabolism
DX: E04.1 Nontoxic single thyroid nodule (principal); M81.0 Age-related osteoporosis without current pathological fracture; M85.89 Other specified disorders of bone density and structure, multiple sites; E21.0 Primary hyperparathyroidism
CPT/HCPCS: 76536; 77080; 80053; 82306; 83970

== ENCOUNTER → 2023-05-19 | Outpatient (CLI) | payer MEDICARE, OTHER ==
--- NOTE | 2023-05-19 23:27 | US ---
EXAMINATION TYPE: US kidneys/renal and bladder DATE OF EXAM: 05/19/2023 COMPARISON: US & CT CLINICAL INDICATION: Male, 78 years old with history of N28.1 CYST OF KIDNEY, ACQUIRED; Renal cysts EXAM MEASUREMENTS: Right Kidney: 11.8 x 5.1 x 5.7 cm Left Kidney: 11.4 x 6.2 x 6.1 cm Right Kidney: No evidence of hydro, multiple calculi at lower pole, largest= 0.8 cm/ complicated cyst upper pole= 6.1 x 5.6 x 5.9 cm Left Kidney: No evidence of hydro, multiple renal calculi scattered throughout with largest at mid= 0 .7 cm/ Multicystic with largest cyst at mid= 5.6 x 4.8 x 6.9 cm Bladder: Multiple (up to 4) probable stones within bladder- largest= 1.5 cm, possible thickened wall Bilateral Jets seen: No Incidental finding enlarged prostate as visualized on prior US IMPRESSION: 1. Urinary bladder calcifications, the largest measures 1.5 cm. 2. Suspected mild urine bladder wall thickening. 3. Left renal cysts, largest measuring 5 cm. 4. Right renal calcifications without hydronephrosis
== END | disposition home or self-care (01) ==
LOC: RADUSWWP 16:10
PROVIDERS: ATTEND Urology
DX: N28.1 Cyst of kidney, acquired (principal); N32.89 Other specified disorders of bladder; N28.89 Other specified disorders of kidney and ureter
CPT/HCPCS: 76770

== ENCOUNTER → 2024-06-23 | Outpatient (CLI) | payer OTHER ==
--- NOTE | 2024-06-23 12:11 | MR ---
EXAMINATION TYPE: MR Prostate wo/w con DATE OF EXAM: 06/23/2024 9:45 AM COMPARISON: None. CLINICAL INDICATION: Male, 79 years old with history of R97.20 ELEVATED PROSTATE SPECIFIC ANTIGEN [PS A] Elevated PSA. TECHNIQUE: Multi-planar, multi-sequence imaging of the pelvis is performed prior to and following the uncomplicated administration of bolus intravenous gadolinium. IV Contrast: 6 mL Gadobutrol Interpretive Criteria: PI-RADS v2.1 SERUM PSA: 3-08-18 = 8.32 9-12-24 = 8.09 SURGICAL PATHOLOGY: No data available. FINDINGS: Prostatic dimensions: 6.9 x 8.2 x 6.0 cm. Ellipsoid Volume:177.75 (PSA density=0.05 ng/mL/mL). CENTRAL GLAND (Central and Transition Zones/CZ+TZ): Multiple bilateral, heterogenous appearing hypertrophic stromal nodules, without suspicious lesion. M edian lobe hypertrophy with protrusion into the base of the bladder. (PI-RADS 2) PERIPHERAL ZONE (PZ): Bilateral linear, indistinct wedgelike areas of low ADC, and low T2 signal, No evidence of masslike a bnormality, or localized perfusional hypervascularity, to further suggest a focus of clinically signi ficant prostate cancer. (PI-RADS 2) SEMINAL VESICLES (SV): Symmetric and unremarkable. PERIPROSTATIC TISSUES: Unremarkable. LYMPH NODES: No enlarged pelvic lymph node. REMAINING PELVIS: Bladder wall is within normal limits given distention. Multiple low T1 signal bladder stones measurin g up to 21 x 11 mm No abnormal free or organized intrapelvic fluid collection. No pathologic bowel dilation or mural thickening. No hernia visualized OSSEOUS STRUCTURES: No suspicious osseous abnormality. IMPRESSION: 1. No specific features for high-risk prostate cancer. Maximum PI-RADS score: 2. 2. Substantial BPH, estimated gland volume 177.75 (PSA density=0.05 ng/mL/mL) 3. No suspicious osseous lesion. No lymphadenopathy. No evidence of prostate adenocarcinoma involving the periprostatic tissues. 4. Multiple bladder stones in the bladder lumen. [facility], , 06/23/2024 12:09 PM
== END | disposition home or self-care (01) ==
LOC: RADMRIMAIN 08:26
PROVIDERS: ATTEND Internal Medicine Hospice and Palliative Medicine
DX: N40.0 Benign prostatic hyperplasia without lower urinary tract symptoms (principal); N21.0 Calculus in bladder; R97.20 Elevated prostate specific antigen [PSA]
CPT/HCPCS: 72197; A9585

== ENCOUNTER 2024-08-04 20:38 | Inpatient (IN) | payer OTHER ==
[2024-08-04] MEDS: ROCURONIUM 10 MG/ML (5 ML VIAL) IV STA (20:44)
[2024-08-04 20:47] LABS: Glucose,Whole Blood 151 mg/dL (70-110)
--- NOTE | 2024-08-04 20:55 | ED ---
Seizure HPI - General Chief Complaint: Seizure Stated Complaint: Unresponsive Time Seen by Provider: 08/04/24 20:45 Source: EMS Mode of arrival: EMS Limitations: altered mental status - History of Present Illness Initial Comments: 79-year-old male who presents to the emergency department with altered mental status. History is provided by and EMS. states that the patient attends [employer] program. He went to his program earlier today and was his normal self. When he got home he laid down in bed. heard commotion from the other room. She walked into see him flailing his arms and was extremely confused. He was nonverbal and would not follow any commands. EMS arrived on scene and found the patient to have forced deviation to the right. He was flaccid in all 4 extremities. Upon loading the patient into the ambulance he ended up having a tonic-clonic seizure for which they gave him 10 mg of IM Versed. Patient arrives being bagged. Oxygen level fell to 82%. Patient will not withdraw to pain in any extremity. Pupils are 5-4 bilaterally with a horizontal nystagmus. Patient will not follow any complaints. He has vomit noted on his face and shirt. 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 He was also weaned off of his Risperdal and has been off of it for the past 2 weeks. He has no history of seizures. No recent illnesses. Remainder of HPI is limited because of patient's current condition - Related Data Home Medications Medication Instructions Recorded Confirmed FLUoxetine HCL [PROzac] 20 mg PO DAILY 08/08/22 08/08/22 Vit D(Unk) 1 tab PO DAILY 08/08/22 risperiDONE 1 mg PO BID 08/08/22 08/08/22 Allergies Allergy/AdvReac Type Severity Reaction Status Date / Time No Known Allergies Allergy Verified 08/04/24 20:43 Review of Systems ROS Statement: Those systems with pertinent positive or pertinent negative responses have been documented in the HPI. ROS Other: All systems not noted in ROS Statement are negative. Past Medical History Past Medical History: Dementia Additional Past Medical History / Comment(s): kidney stones, History of Any Multi-Drug Resistant Organisms: None Reported Past Surgical History: Hernia Repair, Orthopedic Surgery, Tonsillectomy Additional Past Surgical History / Comment(s): Broken arm with surgery, hernia repair as , hernia inguinal repair, Past Anesthesia/Blood Transfusion Reactions: No Reported Reaction Past Psychological History: No Psychological Hx Reported, Depression Smoking Status: Never smoker - Past Family History Mother Family Medical History: No Reported History General Exam Limitations: altered mental status Course Vital Signs 08/04/24 08/04/24 08/04/24 20:41 21:00 21:21 Temperature Pulse Rate 121 H 110 H Respiratory 22 20 Rate Blood Pressure 178/111 131/111 O2 Sat by Pulse 93 L 97 Oximetry Fraction of 100 Inspired Oxygen (FIO2) 08/04/24 08/04/24 08/04/24 21:29 21:41 21:45 Temperature 96.6 F L Pulse Rate 85 72 Respiratory 24 20 Rate Blood Pressure 147/97 146/97 O2 Sat by Pulse 98 98 Oximetry Fraction of 60 Inspired Oxygen (FIO2) 08/04/24 08/04/24 08/04/24 22:02 22:10 22:20 Temperature Pulse Rate 51 L 55 L 63 Respiratory 20 20 20 Rate Blood Pressure 82/58 125/82 135/90 O2 Sat by Pulse 93 L 93 L 96 Oximetry Fraction of Inspired Oxygen (FIO2) 08/04/24 08/04/24 08/04/24 22:30 22:47 23:03 Temperature Pulse Rate 69 69 65 Respiratory 20 22 20 Rate Blood Pressure 143/94 163/107 153/96 O2 Sat by Pulse 96 96 96 Oximetry Fraction of Inspired Oxygen (FIO2) 08/04/24 08/05/24 08/05/24 23:17 00:05 00:29 Temperature 97.0 F L 97.7 F Pulse Rate 75 71 Respiratory 24 20 Rate Blood Pressure 169/108 152/95 O2 Sat by Pulse 96 97 Oximetry Fraction of 60 Inspired Oxygen (FIO2) Medical Decision Making - Medical Decision Making Was pt. sent in by a medical professional or institution (, PA, SKILLS TRAINER, urgent care, hospital, or [facility]...) When possible be specific @ -[No] Did you speak to anyone other than the patient for history (EMS, parent, family, police, friend...)? What history was obtained from this source @ -[No] Did you review nursing and triage notes (agree or disagree)? Why? @ -[I reviewed and agree with nursing and triage notes] Were old charts reviewed (outside hosp., previous admission, EMS record, old EKG, old radiological studies, urgent care reports/EKG's, [facility] records)? Report findings @ -[No old charts were reviewed] Differential Diagnosis (chest pain, altered mental status, abdominal pain women, abdominal pain men, vaginal bleeding, weakness, fever, dyspnea, syncope, headache, dizziness, GI bleed, back pain, seizure, CVA, palpatations, mental health, musculoskeletal)? @ -[not applicable] EKG interpreted by me (3pts min.). @ -Yes which demonstrates possible atrial flutter with a rate of 129. QRS 117. QTc of 467. No acute ST segment elevations or depressions X-rays interpreted by me (1pt min.). @ -[None done] CT interpreted by me (1pt min.). @ -[None done] U/S interpreted by me (1pt. min.). @ -[None done] What testing was considered but not performed or refused? (CT, X-rays, U/S, labs)? Why? @ -[None] What meds were considered but not given or refused? Why? @ -[None] Did you discuss the management of the patient with other professionals (professionals i.e. , PA, SKILLS TRAINER, lab, RT, psych nurse, social psychologist, mental tester, teacher, commissioned security officer, case briefer)? Give summary @ -[No] Was smoking cessation discussed for >3mins.? @ -[No] Was critical care preformed (if so, how long)? @ -[No] Were there social determinants of health that impacted care today? How? (Homelessness, low income, unemployed, alcoholism, drug addiction, transportation, low edu. Level, literacy, decrease access to med. care, snf, rehab)? @ -[No] Was there de-escalation of care discussed even if they declined (Discuss DNR or withdrawal of care, Hospice)? DNR status @ -[No] What co-morbidities impacted this encounter? (DM, HTN, Smoking, COPD, CAD, Cancer, CVA, ARF, Chemo, Hep., AIDS, mental health diagnosis, sleep apnea, morbid obesity)? @ -[None] Was patient admitted / discharged? Hospital course, mention meds given and route, prescriptions, significant lab abnormalities, going to OR and other pertinent info. @ -[hospital course] Undiagnosed new problem with uncertain prognosis? @ -[No] Drug Therapy requiring intensive monitoring for toxicity (Heparin, Nitro, Insu low, Cardizem)? @ -[No] Were any procedures done? @ -[No] Diagnosis/symptom? @ -[default] Acute, or Chronic, or Acute on Chronic? @ -[default] Uncomplicated (without systemic symptoms) or Complicated (systemic symptoms)? @ -[default] Side effects of treatment? @ -[No] Exacerbation, Progression, or Severe Exacerbation? @ -[No] Poses a threat to life or bodily function? How? (Chest pain, [place], [place], pneumonia, PE, COPD, DKA, ARF, appy, cholecystitis, CVA, Diverticulitis, Homicidal, Suicidal, threat to staff... and all critical care pts) @ -[No] - Lab Data Result diagrams: 08/05/24 00:40 08/04/24 20:52 Lab Results 08/04/24 08/04/24 08/04/24 Range/Units 20:46 20:52 20:52 WBC 12.91 H (4.50-10.00) 10*3/uL RBC 4.71 (4.40-5.60) 10*6/uL Hgb 14.6 (13.0-17.0) g/dL Hct 44.4 (39.6-50.0) % MCV 94.3 (80.0-97.0) fL MCH 31.0 (27.0-32.0) pg MCHC 32.9 (32.0-37.0) g/dL Plt Count 309 (140-440) 10*3/uL MPV 9.1 L (9.5-12.2) fL Immature Gran % (Auto) 0.4 % Neutrophils % 54.9 % Lymphocytes % 28.6 % Monocytes % 10.4 % Eosinophils % 4.6 % Basophils % 1.1 % Immature Gran # 0.05 H (0.00-0.04) 10*3/uL Neutrophils # 7.10 (1.80-7.70) 10*3/uL Lymphocytes # 3.69 (0.90-5.00) 10*3/uL Monocytes # 1.34 H (0.20-1.00) 10*3/uL Eosinophils # 0.59 H (0.04-0.35) 10*3/uL Basophils # 0.14 H (0.00-0.10) 10*3/uL PT (10.0-12.5) sec INR (<1.2) APTT (22.0-30.0) sec Sample Site ABG pH (7.35-7.45) ABG pCO2 (35-45) mmHg ABG pO2 (83-108) mmHg ABG HCO3 (21-25) mmol/L ABG Total CO2 (19-24) mmol/L ABG O2 Saturation (94-97) % ABG Base Excess mmol/L Osiel Test Hemoglobin (13.0-17.5) gm/dL FiO2 % Sodium 138 (137-145) mmol/L Potassium 3.8 (3.5-5.1) mmol/L Chloride 101 (98-107) mmol/L Carbon Dioxide 19 L (22-30) mmol/L Anion Gap 18 mmol/L BUN 24 H (9-20) mg/dL Creatinine 0.88 (0.66-1.25) mg/dL Est GFR (CKD-EPI)AfAm >90 (>60 ml/min/1.73 sqM) Est GFR (CKD-EPI)NonAf 82 (>60 ml/min/1.73 sqM) Glucose 161 H (74-99) mg/dL POC Glucose (mg/dL) 151 H (70-110) mg/dL POC Glu Screen Maker JEFF Max Hathaway Calcium 10.7 H (8.4-10.2) mg/dL Magnesium 1.9 (1.6-2.3) mg/dL Total Bilirubin 0.8 (0.2-1.3) mg/dL AST 34 (17-59) U/L ALT 25 (4-49) U/L Alkaline Phosphatase 77 (38-126) U/L Creatine Kinase 40 L (55-170) U/L Troponin I (0.000-0.034) ng/mL Total Protein 7.8 (6.3-8.2) g/dL Albumin 4.5 (3.5-5.0) g/dL Urine Color Urine Appearance (Clear) Urine pH (5.0-8.0) Ur Specific [place] (1.001-1.035) Urine Protein (Negative) Urine Glucose (UA) (Negative) Urine Ketones (Negative) Urine Blood (Negative) Urine Nitrite (Negative) Urine Bilirubin (Negative) Urine Urobilinogen (<2.0) mg/dL Ur Leukocyte Esterase (Negative) Urine RBC (0-5) /hpf Urine WBC (0-5) /hpf Ur Squamous Epith Cells (0-4) /hpf Urine Mucus (None) /hpf Serum Alcohol <10 mg/dL 08/04/24 08/04/24 08/04/24 Range/Units 20:53 20:53 21:27 WBC (4.50-10.00) 10*3/uL RBC (4.40-5.60) 10*6/uL Hgb (13.0-17.0) g/dL Hct (39.6-50.0) % MCV (80.0-97.0) fL MCH (27.0-32.0) pg MCHC (32.0-37.0) g/dL Plt Count (140-440) 10*3/uL MPV (9.5-12.2) fL Immature Gran % (Auto) % Neutrophils % % Lymphocytes % % Monocytes % % Eosinophils % % Basophils % % Immature Gran # (0.00-0.04) 10*3/uL Neutrophils # (1.80-7.70) 10*3/uL Lymphocytes # (0.90-5.00) 10*3/uL Monocytes # (0.20-1.00) 10*3/uL Eosinophils # (0.04-0.35) 10*3/uL Basophils # (0.00-0.10) 10*3/uL PT 10.6 (10.0-12.5) sec INR 1.0 (<1.2) APTT 25.6 (22.0-30.0) sec Sample Site ABG pH (7.35-7.45) ABG pCO2 (35-45) mmHg ABG pO2 (83-108) mmHg ABG HCO3 (21-25) mmol/L ABG Total CO2 (19-24) mmol/L ABG O2 Saturation (94-97) % ABG Base Excess mmol/L Osiel Test Hemoglobin (13.0-17.5) gm/dL FiO2 % Sodium (137-145) mmol/L Potassium (3.5-5.1) mmol/L Chloride (98-107) mmol/L Carbon Dioxide (22-30) mmol/L Anion Gap mmol/L BUN (9-20) mg/dL Creatinine (0.66-1.25) mg/dL Est GFR (CKD-EPI)AfAm (>60 ml/min/1.73 sqM) Est GFR (CKD-EPI)NonAf (>60 ml/min/1.73 sqM) Glucose (74-99) mg/dL POC Glucose (mg/dL) (70-110) mg/dL POC Glu Screen Maker ID Calcium (8.4-10.2) mg/dL Magnesium (1.6-2.3) mg/dL Total Bilirubin (0.2-1.3) mg/dL AST (17-59) U/L ALT (4-49) U/L Alkaline Phosphatase (38-126) U/L Creatine Kinase (55-170) U/L Troponin I <0.012 (0.000-0.034) ng/mL Total Protein (6.3-8.2) g/dL Albumin (3.5-5.0) g/dL Urine Color Colorless Urine Appearance Cloudy (Clear) Urine pH 6.0 (5.0-8.0) Ur Specific [place] 1.014 (1.001-1.035) Urine Protein 2+ H (Negative) Urine Glucose (UA) Trace H (Negative) Urine Ketones Negative (Negative) Urine Blood Small H (Negative) Urine Nitrite Negative (Negative) Urine Bilirubin Negative (Negative) Urine Urobilinogen <2.0 (<2.0) mg/dL Ur Leukocyte Esterase Negative (Negative) Urine RBC 15 H (0-5) /hpf Urine WBC 15 H (0-5) /hpf Ur Squamous Epith Cells <1 (0-4) /hpf Urine Mucus Rare H (None) /hpf Serum Alcohol mg/dL 08/04/24 Range/Units 21:32 WBC (4.50-10.00) 10*3/uL RBC (4.40-5.60) 10*6/uL Hgb (13.0-17.0) g/dL Hct (39.6-50.0) % MCV (80.0-97.0) fL MCH (27.0-32.0) pg MCHC (32.0-37.0) g/dL Plt Count (140-440) 10*3/uL MPV (9.5-12.2) fL Immature Gran % (Auto) % Neutrophils % % Lymphocytes % % Monocytes % % Eosinophils % % Basophils % % Immature Gran # (0.00-0.04) 10*3/uL Neutrophils # (1.80-7.70) 10*3/uL Lymphocytes # (0.90-5.00) 10*3/uL Monocytes # (0.20-1.00) 10*3/uL Eosinophils # (0.04-0.35) 10*3/uL Basophils # (0.00-0.10) 10*3/uL PT (10.0-12.5) sec INR (<1.2) APTT (22.0-30.0) sec Sample Site R. Brachial ABG pH 7.26 L (7.35-7.45) ABG pCO2 49 H (35-45) mmHg ABG pO2 265 H (83-108) mmHg ABG HCO3 22 (21-25) mmol/L ABG Total CO2 24 (19-24) mmol/L ABG O2 Saturation 100.0 H (94-97) % ABG Base Excess -5.2 mmol/L Osiel Test Yes Hemoglobin 13.5 (13.0-17.5) gm/dL FiO2 100 % Sodium (137-145) mmol/L Potassium (3.5-5.1) mmol/L Chloride (98-107) mmol/L Carbon Dioxide (22-30) mmol/L Anion Gap mmol/L BUN (9-20) mg/dL Creatinine (0.66-1.25) mg/dL Est GFR (CKD-EPI)AfAm (>60 ml/min/1.73 sqM) Est GFR (CKD-EPI)NonAf (>60 ml/min/1.73 sqM) Glucose (74-99) mg/dL POC Glucose (mg/dL) (70-110) mg/dL POC Glu Screen Maker ID Calcium (8.4-10.2) mg/dL Magnesium (1.6-2.3) mg/dL Total Bilirubin (0.2-1.3) mg/dL AST (17-59) U/L ALT (4-49) U/L Alkaline Phosphatase (38-126) U/L Creatine Kinase (55-170) U/L Troponin I (0.000-0.034) ng/mL Total Protein (6.3-8.2) g/dL Albumin (3.5-5.0) g/dL Urine Color Urine Appearance (Clear) Urine pH (5.0-8.0) Ur Specific [place] (1.001-1.035) Urine Protein (Negative) Urine Glucose (UA) (Negative) Urine Ketones (Negative) Urine Blood (Negative) Urine Nitrite (Negative) Urine Bilirubin (Negative) Urine Urobilinogen (<2.0) mg/dL Ur Leukocyte Esterase (Negative) Urine RBC (0-5) /hpf Urine WBC (0-5) /hpf Ur Squamous Epith Cells (0-4) /hpf Urine Mucus (None) /hpf Serum Alcohol mg/dL Disposition Clinical Impression: New onset seizure, Ventilator dependence, Aspiration into airway Disposition: ADMITTED IP TO THIS HOSP Condition: Serious Is patient prescribed a controlled substance at d/c from ED?: No Time of Disposition: 00:18 Decision to Admit Reason: Admit from EC Decision Date: 08/05/24 Decision Time: 00:18
[2024-08-04 21:01] LABS: Basophils # (A) 0.14 10*3/uL (0.00-0.10); Basophils % (A) 1.1 %; Eosinophils # (A) 0.59 10*3/uL (0.04-0.35); Eosinophils % (A) 4.6 %; HCT 44.4 % (39.6-50.0); HGB 14.6 g/dL (13.0-17.0); Lymphocytes # (A) 3.69 10*3/uL (0.90-5.00); Lymphocytes % (A) 28.6 %; MCHC 32.9 g/dL (32.0-37.0); MCV 94.3 fL (80.0-97.0); Mean Platelet Volume 9.1 fL (9.5-12.2); Monocytes # (A) 1.34 10*3/uL (0.20-1.00); Monocytes % (A) 10.4 %; Neutrophils % (A) 54.9 %; Platelet Count 309 10*3/uL (140-440); RBC 4.71 10*6/uL (4.40-5.60); RDW 13.3 % (11.5-14.5); WBC 12.91 10*3/uL (4.50-10.00)
[2024-08-04 21:14] LABS: AST 34 U/L (17-59); African American GFR (CKD) >90 (>60 ml/min/1.73 sqM); Albumin 4.5 g/dL (3.5-5.0); Alcohol <10 mg/dL; Alkaline Phosphatase 77 U/L (38-126); Anion Gap 18 mmol/L; Blood Urea Nitrogen 24 mg/dL (9-20); Calcium 10.7 mg/dL (8.4-10.2); Carbon Dioxide 19 mmol/L (22-30); Chloride 101 mmol/L (98-107); Creatine Kinase 40 U/L (55-170); Glucose 161 mg/dL (74-99); Magnesium 1.9 mg/dL (1.6-2.3); Non-African American GFR(CKD) 82 (>60 ml/min/1.73 sqM); Potassium 3.8 mmol/L (3.5-5.1); Sodium 138 mmol/L (137-145); Total Bilirubin 0.8 mg/dL (0.2-1.3); Total Protein 7.8 g/dL (6.3-8.2)
[2024-08-04 21:35] LABS: ABG Base Excess -5.2 mmol/L; ABG HCO3 22 mmol/L (21-25); ABG PCO2 49 mmHg (35-45); ABG PH 7.26 (7.35-7.45); ABG PO2 265 mmHg (83-108); ABG TCO2 24 mmol/L (19-24); Allen Test Performed? Yes
[2024-08-04 21:51] LABS: Appearance,Urine Cloudy (Clear); Bilirubin,Urine Negative (Negative); Blood,Urine Small (Negative); Color,Urine Colorless; Glucose,Urine (UA) Trace (Negative); Ketones,Urine Negative (Negative); Leukocyte Esterase,Urine Negative (Negative); Mucus,Urine Rare /hpf; Nitrite,Urine Negative (Negative); Protein,Urine 2+ (Negative); RBC,Urine 15 /hpf (0-5); Specific Gravity,Urine 1.014 (1.001-1.035); Squamous Epithelial Cell,Urine <1 /hpf (0-4); Urobilinogen,Urine <2.0 mg/dL (<2.0); WBC,Urine 15 /hpf (0-5)
[2024-08-04 21:52] LABS: ALT 25 U/L (4-49)
--- NOTE | 2024-08-04 22:14 | CT ---
EXAMINATION TYPE: CT brain wo con CT DLP: 1159.3 mGycm, Automated exposure control for dose reduction was used. DATE OF EXAM: 08/04/2024 9:31 PM COMPARISON: CT head C-spine study 12/01/2021. CLINICAL INDICATION:Male, 79 years old with history of seizure activity, seizure, no hx of seizures. unresponsive TECHNIQUE: Brain: Axial CT images of the brain were obtained with coronal and sagittal reformats created and rev iewed. Contrast used: None. Oral contrast used: None. FINDINGS: Brain: Extra-axial spaces: No abnormal extra-axial fluid collections. Ventricular system: Dilatation in proportion to cerebral atrophy. Cerebral parenchyma: Cerebral atrophy. No acute intraparenchymal hemorrhage or mass effect. The hernández -white junction is well differentiated. Scattered hypoattenuating areas are seen within the white mat ter. Cerebellum: Unremarkable. Mass effect: No evidence of midline shift. Intracranial vasculature: Atherosclerotic calcifications of the intracranial vessels. Soft tissues: Normal. Calvarium/osseous structures: No depressed skull fracture. Paranasal sinuses and mastoid air cells: Mild scattered paranasal sinus disease. Visualized orbits: Orbital contents are intact. IMPRESSION: No acute intracranial process. Nonspecific white matter changes, likely secondary to chronic small vessel ischemic disease. [facility], , 08/04/2024 10:12 PM
--- NOTE | 2024-08-04 22:21 | CT ---
EXAMINATION TYPE: CT angio head neck CT DLP: 468.4 mGycm, Automated exposure control for dose reduction was used. DATE OF EXAM: 08/04/2024 9:39 PM COMPARISON: CT head from the same day.. CLINICAL INDICATION:Male, 79 years old with history of Neuro deficit, acute, stroke suspected; PHH, n euro deficit TECHNIQUE: Axially acquired helical CT angiogram of the head and neck was obtained with contrast. Axi al images are supplemented with 3D reconstructions and MIP images which were post-processed at an in dependent workstation. NASCET criteria used. Contrast used:65ml mL of Isovue 370 with IV Contrast, Oral contrast used: None. FINDINGS: CTA HEAD: Please see noncontrasted head CT from the same day for further intracranial details. The visualized portions of the internal carotid arteries, middle cerebral arteries, anterior cerebral arteries, and posterior cerebral arteries are patent. The basilar and vertebral arteries are patent. CTA NECK: Right Carotid System: The common carotid artery and external carotid artery are patent. The carotid bifurcation demonstrate s no evidence of hemodynamically significant stenosis. The remaining portions of the internal carotid artery demonstrate normal size without significant narrowing. Left Carotid System: The common carotid artery and external carotid artery are patent. The carotid bifurcation demonstrate s no evidence of hemodynamically significant stenosis. The remaining portions of the internal carotid artery demonstrate normal size without significant narrowing. Vertebral arteries are patent without evidence hemodynamically significant stenosis. There is moderat e atherosclerosis at the origin of the left vertebral artery associated significant stenosis. The lef t vertebral artery is slightly diminutive in comparison to the right. There is a three-vessel aortic arch. The origins of the great vessels are patent. No evidence of hemo dynamically significant stenosis. Upper thorax: Bibasilar atelectasis. Airway is patent. Endotracheal tube is seen in the upper trachea. Partially visualized nasogastric tube. IMPRESSION: 1. No evidence of dissection of the cervical internal carotid arteries or vertebral arteries or any e vidence of significant stenosis at the carotid bifurcations. 2. No evidence of intracranial high-grade stenosis or intracranial aneurysm. [facility], , 08/04/2024 10:19 PM
--- NOTE | 2024-08-04 23:06 | XR ---
EXAMINATION TYPE: XR chest 1V portable DATE OF EXAM: 08/04/2024 9:42 PM CLINICAL INDICATION:Male, 79 years old with history of Post intubation; PHH COMPARISON: CTA head and neck from the same day. TECHNIQUE: XR chest 1V portable Frontal view of the chest. FINDINGS: Lungs/Pleura: There is no evidence of pleural effusion, focal consolidation, or pneumothorax. Pulmonary vascularity: Unremarkable. Heart/mediastinum: Cardiomediastinal silhouette is unremarkable. Musculoskeletal: No acute osseous pathology. Other findings: None Lines/Tubes: Endotracheal tube with distal tip at the level of the aortic arch Nasogastric tube with its distal tip terminating over the lumen of the stomach however the side-port is seen at the gastroesophageal junction. Recommend advancement 3 to 5 cm for more optimal positionin g.. IMPRESSION: Bilateral lower lung atelectasis. Endotracheal tube is in normal position. Recommend advancement of n asogastric tube 3 to 5 cm for more optimal positioning. [facility], , 08/04/2024 11:04 PM
--- NOTE | 2024-08-04 23:27 | CT ---
EXAM: CT Chest Without Intravenous Contrast CLINICAL HISTORY: ITS.REASON CT Reason: ams, large mediastinum, hypotension TECHNIQUE: Axial computed tomography images of the chest without intravenous contrast. CTDI is 3.75 mGy and DLP is 263.8 mGy-cm. This CT exam was performed using one or more of the following dose reduction techniques: automated exposure control, adjustment of the mA and/or kV according to patient size, and/or use of iterative reconstruction technique. COMPARISON: No relevant prior studies available. FINDINGS: Lungs: Left lower lobe dependent atelectasis. Pleural space: Small right pleural effusion with compressive atelectasis right lower lobe. No pneumothorax. Heart: Cardiomegaly. No significant pericardial effusion. No significant coronary artery calcifications. Bones/joints: Unremarkable. No acute fracture. Soft tissues: Unremarkable. Vasculature: 4.1 cm ascending thoracic aortic aneurysm. Lymph nodes: Unremarkable. No enlarged lymph nodes. Tubes, lines and devices: Endotracheal tube with its tip above the [place]. Esophageal catheter present with its tip in the stomach. IMPRESSION: 4.1 cm ascending thoracic aortic aneurysm Small right pleural effusion with compressive atelectasis right lower lobe. Appropriate positioning of support devices Left lower lobe dependent atelectasis EXAM: CT Abdomen and Pelvis Without Intravenous Contrast CLINICAL HISTORY: ITS.REASON CT Reason: ams, large mediastinum, hypotension TECHNIQUE: Axial computed tomography images of the abdomen and pelvis without intravenous contrast. CTDI is 3.75 mGy and DLP is 263.8 mGy-cm. This CT exam was performed using one or more of the following dose reduction techniques: automated exposure control, adjustment of the mA and/or kV according to patient size, and/or use of iterative reconstruction technique. COMPARISON: No relevant prior studies available. FINDINGS: Lung bases: Unremarkable. No mass. No consolidation. ABDOMEN: Liver: 5.5 cm right hepatic lobe cysts. Gallbladder and bile ducts: Unremarkable. No calcified stones. No ductal dilation. Pancreas: Unremarkable. No ductal dilation. Spleen: Unremarkable. No splenomegaly. Adrenals: Unremarkable. No mass. Kidneys and ureters: Multiple bilateral renal cysts measuring up to 6. 3 cm on the right and 7.3 cm on the left. Both kidneys opacify within excrete contrast in a normal symmetric fashion. Multiple bladder calculi present. No hydronephrosis. Stomach and bowel: Unremarkable. No obstruction. No mucosal thickening. PELVIS: Appendix: No findings to suggest acute appendicitis. Bladder: Roman catheter within the urinary bladder. Bladder calculi Reproductive: Markedly enlarged prostate. ABDOMEN and PELVIS: Intraperitoneal space: Unremarkable. No significant fluid collection. No free air or intestinal obstruction. Bones/joints: No acute fracture. No dislocation. Soft tissues: Unremarkable. Vasculature: Unremarkable. No abdominal aortic aneurysm. Lymph nodes: Unremarkable. No enlarged lymph nodes. IMPRESSION: Markedly enlarged prostate gland with a Roman catheter contained within Bilateral renal cysts Right hepatic lobe cyst Appropriate positioning of support devices Multiple bladder calculi
[2024-08-04] MEDS: levETIRAcetam IV 500 MG/5 ML VIAL IVP STA (23:53)
[2024-08-05 00:18] LABS: Partial Thromboplastin Time 25.6 sec (22.0-30.0); Prothrombin Time 10.6 sec (10.0-12.5)
[2024-08-05] MEDS ORDERED: NALOXONE 0.4 MG/ML 1 ML VIAL IV PRN ×2 (00:19→00:20)
[2024-08-05] MEDS ORDERED: Potassium Replacement Protocol 1 EACH MISC MISCELLANE PRN (00:20)
[2024-08-05] MEDS ORDERED: Magnesium Replacement Protocol 1 EACH MISC MISCELLANE PRN (00:20)
[2024-08-05] MEDS ORDERED: LORazepam 1 MG/0.5 ML VIAL IV PRN (00:28)
[2024-08-05 00:48] LABS: Basophils # (A) 0.04 10*3/uL (0.00-0.10); Basophils % (A) 0.3 %; Eosinophils # (A) 0.01 10*3/uL (0.04-0.35); Eosinophils % (A) 0.1 %; HGB 14.2 g/dL (13.0-17.0); Lymphocytes # (A) 0.36 10*3/uL (0.90-5.00); Lymphocytes % (A) 2.7 %; MCH 31.1 pg (27.0-32.0); MCHC 33.8 g/dL (32.0-37.0); MCV 92.1 fL (80.0-97.0); Mean Platelet Volume 8.8 fL (9.5-12.2); Monocytes # (A) 0.76 10*3/uL (0.20-1.00); Monocytes % (A) 5.7 %; Neutrophils # (A) 12.05 10*3/uL (1.80-7.70); Platelet Count 279 10*3/uL (140-440); RBC 4.56 10*6/uL (4.40-5.60); RDW 13.3 % (11.5-14.5); WBC 13.25 10*3/uL (4.50-10.00)
[2024-08-05 00:56] LABS: Amphetamine Screen,Urine Not Detected (NotDetected); Barbiturate Screen,Urine Not Detected (NotDetected); Benzodiazepines Screen,Urine Not Detected (NotDetected); Cocaine Screen,Urine Not Detected (NotDetected); Methadone Screen, Urine Not Detected (NotDetected); Opiate Screen,Urine Not Detected (NotDetected); Oxycodone Screen, Urine Not Detected (NotDetected); Phencyclidine Screen,Urine Not Detected (NotDetected); Tricyclic Antidepressant,Urine Not Detected (NotDetected); Urn Cannabinoid Scrn Not Detected (NotDetected)
[2024-08-05 01:03] LABS: Glucose,Whole Blood 143 mg/dL (70-110)
[2024-08-05 01:07] LABS: African American GFR (CKD) >90 (>60 ml/min/1.73 sqM); Anion Gap 9 mmol/L; Blood Urea Nitrogen 24 mg/dL (9-20); Calcium 10.2 mg/dL (8.4-10.2); Carbon Dioxide 24 mmol/L (22-30); Chloride 103 mmol/L (98-107); Glucose 151 mg/dL (74-99); Magnesium 1.8 mg/dL (1.6-2.3); Non-African American GFR(CKD) 83 (>60 ml/min/1.73 sqM); Potassium 3.2 mmol/L (3.5-5.1); Sodium 136 mmol/L (137-145)
[2024-08-05] MEDS: SODIUM CHLORIDE 0.9% 1,000 ML IV STA (01:17)
[2024-08-05] MEDS: PIPERACILLIN-TAZOBACTAM 3.375 GM in SODIUM CHLORIDE 0.9% 100 ML IVPB SCH (01:48)
[2024-08-05] MEDS: MAGNESIUM SULFATE-D5W PMX 1 GM in DEXTROSE/WATER 1 100ML.BAG IVPB ONE (01:58)
--- NOTE | 2024-08-05 02:03 | P.HPIM ---
History of Present Illness H&P Date: 08/05/24 History of present illness; 79-year-old male with PMH of dementia who presents emergency department via EMS after being found unresponsive and having undergone seizure activity. It was reported by the patient's , that he went to bed without any difficulties earlier this evening however she noted hearing commotion coming from stairs. Upon getting upstairs, the patient was found to be in a postictal state, confused and unaware of what happened. EMS was called, and on arrival they noted he had right-sided deficits/deviation. While with EMS he was noted to have undergone a tonic-clonic seizure. Upon arrival to the emergency department patient was unresponsive and being manually bagged for ventilation purposes. Additionally, he was noted to have what appeared to be emesis on his clothing, and the patient was intubated for airway protection. Labratory review: - WBC 12.91, hemoglobin 14.6, medic at 44.4, platelet 309; sodium 138, potassium 3.8, bicarb 19, BUN 24, creatinine 0.88, calcium 10.7, magnesium 1.9, total bilirubin 0.8, AST 34, ALT 25, alkaline phosphatase 77, creatinine kinase of 40 - ABG: pH 7.26, pCO2 49, PO2 265 - Troponin <0.012 - Urinalysis unremarkable; serum alcohol <10 Imaging: - Chest x-ray done in the ER showed bilateral lower lung atelectasis and endo tracheal tube in normal position, with recommending advancing of the NG tube 3 to 5 cm - CT brain showed no acute intracranial process - CT angiography head/neck showed no evidence of dissection of the cervical internal carotid arteries or vertebral arteries or any evidence of significant stenosis at the carotid bifurcations and no evidence of intracranial high-grade stenosis or intracranial aneurysm - CT chest/abdomen/pelvis showed 4.1 cm ascending thoracic aortic aneurysm, small right pleural effusion with compressive atelectasis right lower lobe markedly enlarged prostate gland, bilateral renal cyst, right hepatic lobe cyst and multiple bladder calculi - EKG done in the ER showed heart rate of , no ST segment elevation or depression seen, no T-wave inversions seen. Vitals: - On arrival: Blood pressure 178/111, heart rate 121, respiratory rate 22, SpO2 93% on manual bagging - Most recently: Blood pressure 152/95, heart rate 71, respiratory rate 20, SpO2 97% on mechanical ventilation Patient admitted to internal medicine service REVIEW OF SYSTEMS: Pertinent positives and negatives noted in HPI. The rest of the 14-point review of systems is negative. Physical Exam: General: Intubated/mechanically ventilated Derm: warm, dry, intact Head: atraumatic, normocephalic, symmetric Eyes: EOMI, anicteric sclera Mouth: no lip lesion, mucus membranes moist Cardiovascular: S1 S2 reg, no murmur, rubs, or gallops Lungs: CTA bilateral, no rales, no accessory muscle use Abdominal: soft, non-tender to palpataion, no appreciable organomegaly Extremities: no gross muscle atrophy, no edema, no contractures Neuro: Alert, Oriented, CNII-XII grossly intact, gait normal Psych: well appearing, appropriate affect Assessment and plan 79-year-old male with PMH of dementia who presents emergency department via EMS after being found unresponsive and having undergone seizure activity. #New onset seizure without known seizure history #Acute metabolic encephalopathy - Suffered at least 2 general tonic-clonic seizures, one prior to EMS arrival and one witnessed by EMS - Received 1000 mg IVP Keppra - Serum sodium, magnesium wit once in EDhin normal limits - TSH ordered, currently pending - Urine drug screen ordered, currently pending - EEG ordered, currently pending - Maintain seizure, fall and aspiration precaution - Neurology consulted, appreciate recommendations - Ativan 1 mg IVP as needed for seizure activity #SIRS criteria met on admission #Possible aspiration ammonia - On arrival heart rate 121, WBCs 12.91 - Will receive 1 L LR bolus - Continue with LR at 100 cc/h - Continue with Zosyn 3.375 g every 8 hours - Sputum culture ordered, currently pending #Hypercalcemia, resolved - Initial lab work calcium 10.7 - Repeat lab work showed calcium 10.2 - Albumin 4.5 #Hypokalemia - On admission potassium 3.8, on repeat lab 3.2 - Potassium replacement per protocol with a total of 40 mEq potassium bicarbonate through NG tube - Will continue to monitor BMP GI prophylaxis: Consider adding if will be intubated > 48 hours DVT prophylaxis: Lovenox 40 mg subcu daily The patient is admitted with an anticipated more than than 2 midnight stay for evaluation of new onset tonic-clonic seizure and SIRS criteria met on admission. CODE STATUS: No code Discussed with: Anticipated discharge place: Pending clinical course Dictation was produced using [employer] dictation software. please excuse any grammatical, word or spelling errors. Deshawn Domingo MD PGY-1 IM I have seen and evaluated the patient today. I Discussed the case with the resident and agree with the resident's findings I edited the assessment and plan as necessary as documented in the resident's note. Past Medical History Past Medical History: Dementia Additional Past Medical History / Comment(s): kidney stones, History of Any Multi-Drug Resistant Organisms: None Reported Past Surgical History: Hernia Repair, Orthopedic Surgery, Tonsillectomy Additional Past Surgical History / Comment(s): Broken arm with surgery, hernia repair as infant, hernia inguinal repair, Past Anesthesia/Blood Transfusion Reactions: No Reported Reaction Past Psychological History: No Psychological Hx Reported, Depression Smoking Status: Never smoker - Past Family History Mother Family Medical History: No Reported History Medications and Allergies Home Medications Medication Instructions Recorded Confirmed Type FLUoxetine HCL [PROzac] 20 mg PO DAILY 08/08/22 08/08/22 History Vit D(Unk) 1 tab PO DAILY 08/08/22 History risperiDONE 1 mg PO BID 08/08/22 08/08/22 History Allergies Allergy/AdvReac Type Severity Reaction Status Date / Time No Known Allergies Allergy Verified 08/04/24 20:43 Physical Exam Vitals: Vital Signs Temp Pulse Resp BP Pulse Ox FiO2 08/05/24 00:05 97.7 F 71 20 152/95 97 08/04/24 23:17 97.0 F L 75 24 169/108 96 08/04/24 23:03 65 20 153/96 96 08/04/24 22:47 69 22 163/107 96 08/04/24 22:30 69 20 143/94 96 08/04/24 22:20 63 20 135/90 96 08/04/24 22:10 55 L 20 125/82 93 L 08/04/24 22:02 51 L 20 82/58 93 L 08/04/24 21:45 60 08/04/24 21:41 96.6 F L 72 20 146/97 98 08/04/24 21:29 85 24 147/97 98 08/04/24 21:21 100 08/04/24 21:00 110 H 20 131/111 97 08/04/24 20:41 121 H 22 178/111 93 L Intake and Output 08/04/24 08/04/24 08/05/24 14:59 22:59 06:59 Intake Total 3.461 Balance 3.461 Intake: Intake, IV Titration 3.461 Amount propofoL 1,000 mg In 3.461 Empty Bag 1 bag @ 15 MCG/ KG/MIN 5.715 mls/hr IV . [id number] [facility] Rx#:[id number] Other: Weight 63.503 kg Results CBC & Chem 7: 08/05/24 05:47 08/05/24 05:47 Labs: Abnormal Lab Results - Last 24 Hours (Table) 08/04/24 08/04/24 08/04/24 Range/Units 20:46 20:52 20:52 WBC 12.91 H (4.50-10.00) 10*3/uL MPV 9.1 L (9.5-12.2) fL Immature Gran # 0.05 H (0.00-0.04) 10*3/uL Monocytes # 1.34 H (0.20-1.00) 10*3/uL Eosinophils # 0.59 H (0.04-0.35) 10*3/uL Basophils # 0.14 H (0.00-0.10) 10*3/uL ABG pH (7.35-7.45) ABG pCO2 (35-45) mmHg ABG pO2 (83-108) mmHg ABG O2 Saturation (94-97) % Carbon Dioxide 19 L (22-30) mmol/L BUN 24 H (9-20) mg/dL Glucose 161 H (74-99) mg/dL POC Glucose (mg/dL) 151 H (70-110) mg/dL Calcium 10.7 H (8.4-10.2) mg/dL Creatine Kinase 40 L (55-170) U/L Urine Protein (Negative) Urine Glucose (UA) (Negative) Urine Blood (Negative) Urine RBC (0-5) /hpf Urine WBC (0-5) /hpf Urine Mucus (None) /hpf 08/04/24 08/04/24 Range/Units 21:27 21:32 WBC (4.50-10.00) 10*3/uL MPV (9.5-12.2) fL Immature Gran # (0.00-0.04) 10*3/uL Monocytes # (0.20-1.00) 10*3/uL Eosinophils # (0.04-0.35) 10*3/uL Basophils # (0.00-0.10) 10*3/uL ABG pH 7.26 L (7.35-7.45) ABG pCO2 49 H (35-45) mmHg ABG pO2 265 H (83-108) mmHg ABG O2 Saturation 100.0 H (94-97) % Carbon Dioxide (22-30) mmol/L BUN (9-20) mg/dL Glucose (74-99) mg/dL POC Glucose (mg/dL) (70-110) mg/dL Calcium (8.4-10.2) mg/dL Creatine Kinase (55-170) U/L Urine Protein 2+ H (Negative) Urine Glucose (UA) Trace H (Negative) Urine Blood Small H (Negative) Urine RBC 15 H (0-5) /hpf Urine WBC 15 H (0-5) /hpf Urine Mucus Rare H (None) /hpf
[2024-08-05] MEDS: LACTATED RINGERS 1,000 ML IV ONE (02:16)
[2024-08-05] MEDS: LACTATED RINGERS 1,000 ML IV SCH (02:16)
--- NOTE | 2024-08-05 02:32 | P.CNPUL ---
History of Present Illness Consult date: 08/05/24 Requesting physician: Elaine Roberson Reason for consult: other (ICU management) Chief complaint: Altered mental status, seizure-like activity History of present illness: Patient is a 79-year-old male with past medical history significant for dementia, depression, thyroid nodule, BPH. Patient was brought into the emergency department by EMS late last night. At home, he was suddenly noted to to be confused and nonverbal by his . When EMS arrived he was unresponsive. Flaccid in all 4 extremity. Right gaze deviation noted. In route, patient developed generalized tonic-clonic seizure-like activity. He was incontinent to urine and stool. He received 10 mg of IM Versed. On arrival, patient was intubated for airway protection by the ER provider. Gastric content noted in his oropharynx on intubation. Also, patient had some emesis on his T-shirt. Family currently not at bedside to provide further information. According to the ER note, patient was reportedly feeling well prior to this earlier in the day. He did go [facility] his [facility]. No reported history of seizures. Repo rtedly weaning off Risperdal at home. Questionable history of TIA. Workup in the emergency department including a brain CT which did not show any acute intracranial hemorrhage or mass effect. Nonspecific white matter changes likely secondary to chronic small vessel ischemic disease. Brain CT angio did not show any evidence of dissection of the cervical internal carotid arteries or vertebral arteries or any significant stenosis at the carotid bifurcations. No evidence of intracranial high-grade stenosis or intracranial aneurysm. Neurology has been consulted. Patient was loaded with IV Keppra in the ED. Subsequently, patient did have a CT of his chest, abdomen, pelvis. Left lower lobe dependent atelectasis or infiltrate. Right-sided small pleural effusion with compressive atelectasis. Incidental findings including enlarged prostate gland with a Roman catheter and decompressed bladder. Multiple stones in the bladder. Bilateral renal cyst. Right hepatic lobe cyst. Patient is currently being evaluated in the emergency department. He is intubated to the mechanical ventilator. Sedated on propofol at 35 mcg/kg/min. Does not follow commands. Withdraws the pain in all 4 extremities. Post intubation chest x-ray showing endotracheal tube around the [place]. Orogastric tube coursing below the diaphragm. Bilateral lower lung atelectasis. Initial postintubation ABG with a PaO2 of 265, pCO2 49, pH of 7.26. This was done on ventilator settings of assist-control, respiratory rate 18, tidal volume 400, FiO2 100%, PEEP of 5. FiO2 is since been cut down to 60%. He is synchronous with current ventilator settings. No significant endotracheal tube secretions. Peak pressures around 19. CBC with a WBC count of 13.3, hemoglobin 14, platelets 279. BMP: Sodium 136, potassium 3.2, chloride 103, serum bicarb 24, BUN 24, creatinine 0.86, glucose 151. Alcohol level less than 10. EKG: Atrial fibrillation with RVR, rate 129 bpm. UA unremarkable for UTI. Urine toxicology screen also negative. No recorded fevers. Current rhythm appears in sinus on bedside monitor. Blood pressures currently 141/91 mmHg. Started empirically on Zosyn for his aspiration. Review of Systems ROS unobtainable: due to mental status Past Medical History Past Medical History: Dementia Additional Past Medical History / Comment(s): kidney stones, History of Any Multi-Drug Resistant Organisms: None Reported Past Surgical History: Hernia Repair, Orthopedic Surgery, Tonsillectomy Additional Past Surgical History / Comment(s): Broken arm with surgery, hernia repair as infant, hernia inguinal repair, Past Anesthesia/Blood Transfusion Reactions: No Reported Reaction Past Psychological History: No Psychological Hx Reported, Depression Smoking Status: Never smoker - Past Family History Mother Family Medical History: No Reported History Medications and Allergies Home Medications Medication Instructions Recorded Confirmed Type FLUoxetine HCL [PROzac] 20 mg PO DAILY 08/08/22 08/08/22 History Vit D(Unk) 1 tab PO DAILY 08/08/22 History risperiDONE 1 mg PO BID 08/08/22 08/08/22 History Allergies Allergy/AdvReac Type Severity Reaction Status Date / Time No Known Allergies Allergy Verified 08/04/24 20:43 Physical Exam Vitals: Vital Signs Temp Pulse Resp BP Pulse Ox FiO2 08/05/24 01:10 97.7 F 73 18 184/117 96 60 08/05/24 00:50 97.3 F L 71 22 141/91 97 08/05/24 00:29 60 08/05/24 00:05 97.7 F 71 20 152/95 97 08/04/24 23:17 97.0 F L 75 24 169/108 96 08/04/24 23:03 65 20 153/96 96 08/04/24 22:47 69 22 163/107 96 08/04/24 22:30 69 20 143/94 96 08/04/24 22:20 63 20 135/90 96 08/04/24 22:10 55 L 20 125/82 93 L 08/04/24 22:02 51 L 20 82/58 93 L 08/04/24 21:45 60 08/04/24 21:41 96.6 F L 72 20 146/97 98 08/04/24 21:29 85 24 147/97 98 08/04/24 21:21 100 08/04/24 21:00 110 H 20 131/111 97 08/04/24 20:41 121 H 22 178/111 93 L Intake and Output 08/04/24 08/04/24 08/05/24 14:59 22:59 06:59 Intake Total 3.461 Balance 3.461 Intake: Intake, IV Titration 3.461 Amount propofoL 1,000 mg In 3.461 Empty Bag 1 bag @ 15 MCG/ KG/MIN 5.715 mls/hr IV . [id number] [facility] Rx#:[id number] Other: Weight 63.503 kg GENERAL EXAM: Sedated, 79-year-old male, intubated mechanical ventilator synchronous with current ventilator settings. HEAD: Normocephalic and atraumatic EYES: Normal reaction of pupils, equal size. Slow, horizontal nystagmus. Anicteric sclera. NOSE: Clear with pink turbinates. THROAT: No erythema or exudates. NECK: No masses, no JVD. CHEST: No chest wall deformity. LUNGS: Equal air entry with no crackles, wheeze, rhonchi or dullness. Intubated to the mechanical ventilated. No significant endotracheal tube secretions. Peak pressures 19. CVS: S1 and S2 normal with systolic murmur, regular rhythm. No extra heart sounds ABDOMEN: No hepatosplenomegaly, active bowel sounds, no guarding or rigidity. SPINE: No scoliosis or deformity. Neck is supple, without rigidity. SKIN: No rashes. Approximated right forearm incision. CENTRAL NERVOUS SYSTEM: Sedated, withdraws to pain in all 4 extremities, DTRs 1- 2+ bilaterally, no tonic-clonic activity, Babinski neutral. EXTREMITIES: There is no peripheral edema or cyanosis. Digital clubbing noted. Peripheral pulses are intact. Results - Laboratory Findings CBC and BMP: 08/05/24 00:40 08/05/24 00:40 ABG ABG pH 7.26 (7.35-7.45) L 08/04/24 21:32 ABG pCO2 49 mmHg (35-45) H 08/04/24 21:32 ABG pO2 265 mmHg (83-108) H 08/04/24 21:32 ABG O2 Saturation 100.0 % (94-97) H 08/04/24 21:32 PT/INR, D-dimer PT 10.6 sec (10.0-12.5) 08/04/24 20:53 INR 1.0 (<1.2) 08/04/24 20:53 Abnormal lab findings: Abnormal Labs 08/04/24 08/04/24 08/04/24 20:46 20:52 20:52 WBC 12.91 H MPV 9.1 L Immature Gran # 0.05 H Neutrophils # Lymphocytes # Monocytes # 1.34 H Eosinophils # 0.59 H Basophils # 0.14 H ABG pH ABG pCO2 ABG pO2 ABG O2 Saturation Sodium Potassium Carbon Dioxide 19 L BUN 24 H Glucose 161 H POC Glucose (mg/dL) 151 H Calcium 10.7 H Creatine Kinase 40 L Urine Protein Urine Glucose (UA) Urine Blood Urine RBC Urine WBC Urine Mucus 08/04/24 08/04/24 08/05/24 21:27 21:32 00:40 WBC 13.25 H MPV 8.8 L Immature Gran # Neutrophils # 12.05 H Lymphocytes # 0.36 L Monocytes # Eosinophils # 0.01 L Basophils # ABG pH 7.26 L ABG pCO2 49 H ABG pO2 265 H ABG O2 Saturation 100.0 H Sodium Potassium Carbon Dioxide BUN Glucose POC Glucose (mg/dL) Calcium Creatine Kinase Urine Protein 2+ H Urine Glucose (UA) Trace H Urine Blood Small H Urine RBC 15 H Urine WBC 15 H Urine Mucus Rare H 08/05/24 08/05/24 00:40 01:02 WBC MPV Immature Gran # Neutrophils # Lymphocytes # Monocytes # Eosinophils # Basophils # ABG pH ABG pCO2 ABG pO2 ABG O2 Saturation Sodium 136 L Potassium 3.2 L Carbon Dioxide BUN 24 H Glucose 151 H POC Glucose (mg/dL) 143 H Calcium Creatine Kinase Urine Protein Urine Glucose (UA) Urine Blood Urine RBC Urine WBC Urine Mucus - Diagnostic Findings Chest x-ray: image reviewed CT scan - chest: image reviewed Assessment and Plan Assessment: New onset seizure activity, patient was given 10 mg of IV Valium in-route to the hospital. Also, loaded with 1 g of Keppra in the ED. On arrival to the emergency department patient was unresponsive unable to protect airway, he was intubated by the ER provider. Gastric contact noted in the oropharynx. Acute hypoxemic and hypercapnic respiratory failure, secondary to above, patient was intubated and placed on the mechanical ventilator. Follow-up chest x-ray showing the endotracheal tube appropriately placed above the [place]. Orogastric tube coursing below the diaphragm. Aspiration Brief episode of atrial fibrillation with rapid ventricular response, current rhythm appears normal sinus on bedside monitor Hypokalemia History of dementia BPH Depression Plan: Continue on mechanical ventilator Increase respiratory rate to 22 bpm and wean FiO2 as tolerated. Continue propofol for sedation, wean for appropriate RASSi Repeat ABG this morning Repeat chest x-ray in the morning Ativan as needed for seizure Continue Keppra Obtain EEG Neurology consultation appreciated Cover patient on Zosyn empirically for aspiration We will continue to follow I have personally seen and examined the patient, performed the documentation and the assessment and plan as written. Number of minutes spent on the visit:20 Time with Patient: Greater than 30
[2024-08-05] MEDS: POTASSIUM BICARBONATE/CIT AC 20 MEQ TABLET.EFF NG-TUBE SCH (02:49)
[2024-08-05] MEDS: POTASSIUM CHLORIDE 10 MEQ in WATER FOR INJECTION 1 100ML.BAG IVPB SCH (02:58)
--- NOTE | 2024-08-05 03:44 | XR ---
EXAM: XR Chest, 1 View CLINICAL HISTORY: ITS.REASON XR Reason: line placement TECHNIQUE: Frontal view of the chest. COMPARISON: No relevant prior studies available. FINDINGS: Lungs: Unremarkable. No consolidation. Pleural space: Unremarkable. No pneumothorax. Heart: Unremarkable. No cardiomegaly. Mediastinum: Unremarkable. Normal mediastinal contour. Bones/joints: Unremarkable. No acute fracture. Tubes, lines and devices: Endotracheal tube with its tip above the [place]. Esophageal catheter with its tip in the gastric fundus. IMPRESSION: No acute findings in the chest.
[2024-08-05] MEDS: IPRATROPIUM-ALBUTEROL 3 ML NEB INHALATION SCH (04:18)
[2024-08-05 05:40] LABS: Allen Test Performed? Yes
[2024-08-05 05:41] LABS: ABG Base Excess -2.6 mmol/L; ABG HCO3 23 mmol/L (21-25); ABG Oxygen Saturation 99.9 % (94-97); ABG PCO2 42 mmHg (35-45); ABG PH 7.35 (7.35-7.45); ABG PO2 220 mmHg (83-108); ABG TCO2 24 mmol/L (19-24)
[2024-08-05 06:30] LABS: Basophils # (A) 0.03 10*3/uL (0.00-0.10); Basophils % (A) 0.2 %; HCT 41.4 % (39.6-50.0); HGB 13.8 g/dL (13.0-17.0); Lymphocytes # (A) 0.35 10*3/uL (0.90-5.00); Lymphocytes % (A) 2.1 %; MCH 30.3 pg (27.0-32.0); MCHC 33.3 g/dL (32.0-37.0); Mean Platelet Volume 8.8 fL (9.5-12.2); Monocytes # (A) 1.23 10*3/uL (0.20-1.00); Monocytes % (A) 7.2 %; Neutrophils % (A) 90.1 %; Platelet Count 257 10*3/uL (140-440); RBC 4.55 10*6/uL (4.40-5.60); RDW 13.6 % (11.5-14.5); WBC 17.07 10*3/uL (4.50-10.00)
[2024-08-05 06:33] LABS: African American GFR (CKD) >90 (>60 ml/min/1.73 sqM); Anion Gap 11 mmol/L; Blood Urea Nitrogen 20 mg/dL (9-20); Calcium 10.3 mg/dL (8.4-10.2); Carbon Dioxide 22 mmol/L (22-30); Chloride 103 mmol/L (98-107); Glucose 136 mg/dL (74-99); Non-African American GFR(CKD) 87 (>60 ml/min/1.73 sqM); Potassium 3.8 mmol/L (3.5-5.1); Sodium 136 mmol/L (137-145)
[2024-08-05 06:51] LABS: Glucose,Whole Blood 138 mg/dL (70-110)
[2024-08-05] MEDS: CHLORHEXIDINE GLUCONATE 15 ML CUP MUCOUS MEM SCH (08:28)
[2024-08-05] MEDS: levETIRAcetam IV 500 MG/5 ML VIAL IVP SCH (08:29)
[2024-08-05] MEDS: ENOXAPARIN 40 MG/0.4 ML SYRINGE SQ SCH (08:29)
--- NOTE | 2024-08-05 08:36 | XR ---
EXAMINATION TYPE: XR chest 1V portable DATE OF EXAM: 08/05/2024 6:36 AM COMPARISON: None. CLINICAL INDICATION: Male, 79 years old with history of Tube placement, difficulty breathing TECHNIQUE: XR chest 1V portable view(s) obtained. FINDINGS: The heart size is normal. The pulmonary vasculature is normal. The lungs are clear. Endotracheal tube tip is 5 cm above [place]. Nasogastric tube transverses the thorax IMPRESSION: 1. No acute pulmonary process. [facility], , 08/05/2024 8:33 AM
[2024-08-05] MEDS ORDERED: PANTOPRAZOLE 40 MG/10 ML VIAL IVP SCH (09:00)
[2024-08-05] MEDS ORDERED: HEPARIN SODIUM,PORCINE 5,000 UNIT/ML 1 ML VIAL SQ SCH (09:00)
[2024-08-05] MEDS ORDERED: levETIRAcetam IV 500 MG in SODIUM CHLORIDE 0.9% 250 ML IVPB SCH (09:00)
[2024-08-05] MEDS: PANTOPRAZOLE 40 MG/10 ML VIAL IVP SCH (09:50)
--- NOTE | 2024-08-05 14:00 | EEG ---
DATE OF SERVICE: 08/05/2024 ELECTROENCEPHALOGRAM REPORT PREAMBLE: This is a 79-year-old male, who suddenly became nonverbal and confused. The patient had a tonic-clonic seizure when EMS arrived. This study is performed to evaluate for any epileptiform activity. CURRENT MEDICATIONS: Keppra, Ativan, magnesium, Apresoline, and propofol. EEG FINDINGS: This is a 21-channel digital EEG recorded with video component, utilizing 10/20 international system with referential and bipolar montages. Background consists of moderately well-developed, poorly regulated, mixed frequencies of somewhat low to moderate amplitude 5 hertz theta activity, intermixed with somewhat suppressed background seen intermittently during this study. Photic driving response was not seen. Different stages of sleep were not seen. No focal or generalized epileptiform activity was seen. IMPRESSION: This is an abnormal EEG due to background slowing and intermittent mild suppression, suggestive of generalized cerebral dysfunction as can be seen with toxic metabolic encephalopathy or related to diffuse structural brain abnormality or medication effect. Clinical correlation is recommended. No epileptiform activity was seen. [id number] / IJN: [id number] / [id number]
--- NOTE | 2024-08-05 16:00 | P.CNNES ---
History of Present Illness Consult date: 08/05/24 Requesting physician: Elaine Roberson Reason for Consult: new onset seizure History of Present Illness: Patient is a 79-year-old male came to the hospital by ambulance yesterday at 8:38 PM for episode of unresponsiveness and witnessed seizure. Patient's was present at the bedside, who provided with a history. She states that she went in to give him medication and found him unresponsive in the bed. Shortly after he had a full-blown seizure. She called EMS. While EMS was there, patient had another seizure. Patient's mentions that she saw him about an hour prior to discovering him unresponsive and he was fine at that time with no complaints. He does sleep a lot. Patient does have history of depression, "nervous breakdown" in 2021 for which he was admitted to the mental health unit. He had psychosis and suicide ideation at that time. There was some concern of dementia, but patient's mentions that after he was discharged, his memory functions returned back to normal and he has no dementia. He used to be on Risperdal and Prozac, but Risperdal was making him very drowsy therefore it was weaned off. He completely stopped Risperdal 2 weeks ago, and the weaning process was over 3 weeks period of time. His mentions that sometimes he would be slightly forgetful, confused, as he would ask what time is it. Patient's would say 7:00, and he would not know if it is a.m. or p.m. Otherwise he knows everything that he should know at his age. As per EMS flowsheet, when they arrived, found patient unresponsive with right- sided eye deviation. Per patient's family, patient had a seizure lasting approximately 4 to 5 minutes with no prior history of seizures. Patient was alert oriented x 0 with GCS of 3. Patient normally is alert and oriented x 4 with GCS of 15. Patient was placed on the stretcher. Patient began having a seizure, Versed was given IM. Patient began having shallow respirations. Patient was manually ventilated with BVM with improvement. Patient's vitals at the scene was blood pressure 192/118, pulse rate 104, saturation 85% respiration 10. Blood glucose 151. Vital signs on arrival 178/111, which came down to 131/111 and pulse rate of 1 21. Patient has been afebrile. Blood test shows white cells 12.91 hemoglobin 14.6, normal platelets. PT PTT normal. ABG with pH 7.26, LDL257, oxygen 265. BUN 24, creatinine 0.88. Hepatic panel is normal, troponin negative. UA negative. Urine drug screen and blood alcohol level negative. TSH is normal. CT head revealed no acute intracranial process. Nonspecific white matter changes, likely secondary to chronic small vessel ischemic disease. I personally reviewed CT head, agree with the findings. Chest x-ray showed bilateral lower lung atelectasis. ETT is in normal position. CT of abdomen pelvis revealed markedly enlarged prostate gland with a Roman catheter contained within. Bilateral renal cysts. Right hepatic lobe cyst. Multiple bladder calculi. Repeat EKG showed atrial flutter/tachycardia with rapid ventricular response. Repeat EKG showed junctional bradycardia. Review of Systems Other review of systems as per patient's report. ROS unobtainable: due to endotracheal tube, due to mental status Past Medical History Past Medical History: Dementia Additional Past Medical History / Comment(s): kidney stones, History of Any Multi-Drug Resistant Organisms: None Reported Past Surgical History: Hernia Repair, Orthopedic Surgery, Tonsillectomy Additional Past Surgical History / Comment(s): Broken arm with surgery, hernia repair as , hernia inguinal repair, Past Anesthesia/Blood Transfusion Reactions: No Reported Reaction Past Psychological History: No Psychological Hx Reported, Depression Smoking Status: Never smoker - Past Family History Mother Family Medical History: No Reported History Medications and Allergies Home Medications Medication Instructions Recorded Confirmed Type Ammonium Lactate [Amlactin] 1 applic TOPICAL BID 08/05/24 08/05/24 History FLUoxetine HCL [Fluoxetine HCl] 60 mg PO HS 08/05/24 08/05/24 History Multivit/Iron Sulf/Folic Acid 1 tab PO DAILY 08/05/24 08/05/24 History [Multivitamin with Iron] Simethicone [Gas-X] 125 mg PO DIRECTED 08/05/24 08/05/24 History Tamsulosin [Flomax] 0.4 mg PO HS 08/05/24 08/05/24 History risperiDONE [RisperDAL] 0.5 mg PO DAILY 08/05/24 08/05/24 History Allergies Allergy/AdvReac Type Severity Reaction Status Date / Time No Known Allergies Allergy Verified 08/05/24 10:02 Physical Examination - Vital Signs Vital Signs: Vital Signs Temp Pulse Resp BP Pulse Ox FiO2 08/05/24 15:00 68 22 114/74 97 08/05/24 14:00 74 22 114/77 97 08/05/24 13:00 75 23 116/80 96 08/05/24 12:35 72 08/05/24 12:24 71 08/05/24 12:17 40 08/05/24 12:00 99.3 F 70 24 115/77 96 40 08/05/24 11:00 72 22 123/80 96 08/05/24 10:00 75 22 132/80 96 08/05/24 09:00 76 22 121/83 97 08/05/24 08:35 70 08/05/24 08:22 67 08/05/24 08:20 40 08/05/24 08:00 98.8 F 67 113/78 96 40 08/05/24 07:45 67 22 117/82 97 08/05/24 07:30 65 22 121/85 97 08/05/24 07:15 67 22 125/85 97 08/05/24 07:00 69 22 131/86 97 08/05/24 06:45 69 22 135/92 97 08/05/24 06:30 71 20 122/81 97 08/05/24 06:15 68 22 125/81 97 08/05/24 06:00 70 22 130/89 97 08/05/24 05:45 69 22 140/91 97 08/05/24 05:30 75 22 143/95 97 08/05/24 05:15 75 22 140/95 98 08/05/24 05:00 70 22 121/86 98 08/05/24 04:45 68 22 127/89 98 08/05/24 04:30 63 22 122/83 98 08/05/24 04:26 67 22 08/05/24 04:21 60 08/05/24 04:20 60 08/05/24 04:18 69 23 08/05/24 04:15 64 22 126/83 98 08/05/24 04:00 68 22 123/87 97 08/05/24 03:45 68 22 132/93 97 08/05/24 03:35 60 08/05/24 03:33 60 08/05/24 03:30 71 22 153/102 97 08/05/24 03:15 86 22 152/97 96 08/05/24 03:00 98.2 F 69 22 158/96 98 08/05/24 02:45 70 22 150/94 98 08/05/24 02:30 68 22 127/89 97 08/05/24 02:15 66 22 79/58 96 08/05/24 02:00 98.2 F 58 L 22 77/55 96 08/05/24 01:45 60 22 79/58 96 08/05/24 01:30 57 L 22 184/117 96 08/05/24 01:10 97.7 F 73 18 184/117 96 60 08/05/24 00:50 97.3 F L 71 22 141/91 97 08/05/24 00:29 60 08/05/24 00:05 97.7 F 71 20 152/95 97 08/04/24 23:17 97.0 F L 75 24 169/108 96 08/04/24 23:03 65 20 153/96 96 08/04/24 22:47 69 22 163/107 96 08/04/24 22:30 69 20 143/94 96 08/04/24 22:20 63 20 135/90 96 08/04/24 22:10 55 L 20 125/82 93 L 08/04/24 22:02 51 L 20 82/58 93 L 08/04/24 21:45 60 08/04/24 21:41 96.6 F L 72 20 146/97 98 08/04/24 21:29 85 24 147/97 98 08/04/24 21:21 100 08/04/24 21:00 110 H 20 131/111 97 08/04/24 20:41 121 H 22 178/111 93 L Intake and Output 08/05/24 08/05/24 08/05/24 06:59 14:59 22:59 Intake Total 2471.009 840.000 100 Output Total 575 275 30 Balance 1896.009 565.000 70 Intake: IV 150 700 100 Lactated Ringers 1,000 ml 700 100 @ 100 mls/hr IV .Q10H [facility] Rx#:[id number] Sodium Chloride 0.9% 1, 150 000 ml @ 75 mls/hr IV . [id number] [facility] Rx#:[id number] Intake, IV Titration 2321.009 100.000 Amount Lactated Ringers 1,000 ml 500 @ 100 mls/hr IV .Q10H [facility] Rx#:[id number] Lactated Ringers 1,000 ml 1000 @ 999 mls/hr IV .Q1H1M [facility] Rx#:[id number] Magnesium Sulfate-D5w Pmx 100 1 gm In Dextrose/Water 1 100ml.bag @ 100 mls/hr IVPB ONCE ONE Rx#: [id number] Piperacillin-Tazobactam 3 100 .375 gm In Sodium Chloride 0.9% 100 ml @ 25 mls/hr IVPB Q8H [facility] Rx#: [id number] Potassium Chloride 10 meq 500 In Water For Injection 1 100ml.bag @ 100 mls/hr IVPB Q1HR [facility] Rx#: [id number] Sodium Chloride 0.9% 1, 75 000 ml @ 75 mls/hr IV . [id number] [facility] Rx#:[id number] propofoL 1,000 mg In 3.461 Empty Bag 1 bag @ 15 MCG/ KG/MIN 5.715 mls/hr IV . [id number] [facility] Rx#:[id number] propofoL 1,000 mg In 42.548 100.000 Empty Bag 1 bag @ 15 MCG/ KG/MIN 5.715 mls/hr IV . [id number] [facility] Rx#:[id number] Tube Feeding 40 Output: Gastric Drainage 150 Urine 425 275 30 Other: Voiding Method Indwelling Catheter Indwelling Catheter # Voids 1 Weight 60.4 kg 60.4 kg Patient is an elderly male, who is intubated, sedated with propofol 40 mcg/kg/min. Patient is unresponsive. On trying to call his name loudly, he slightly moves his eyelids, but did not open the eyes. Patient is not following any directions. Not opening the eyes. On cranial nerve examination, pupils are equal, round and reacting to light, he has significant matting of his eyelids. Corneals are present. Patient has gag and cough and is breathing over the ventilator. Other cranial nerves could not be assessed. On muscle strength testing, patient is not following any directions. He is moving his arms and legs not purposefully. I see slightly more movement of his left arm as compared to the right, but is moving his legs equally. He appears somewhat restless. Deep tendon reflexes are 1 in the upper limbs, 1+ in the lower limbs, plantars downgoing. Sensory to touch cannot be assessed, but he does withdraw slightly to painful stimuli. Cerebellar function showed no ataxia for sacecr-hy-xybw testing. No dysdiadochokinesia. No ataxia for acsd-dh-hbue testing on either side. Tone and bulk of muscles normal. Gait deferred.. On general examination, there is no carotid bruit or murmur, S1-S2 audible. Chest is clear on consultation. Abdomen is soft nontender. No organomegaly, bowel sounds present. Peripheral pulses are present. No peripheral edema. Results - Laboratory Findings CBC and BMP: 08/05/24 05:47 08/05/24 08:53 Abnormal Lab Findings: Abnormal Labs 08/04/24 08/04/24 08/04/24 20:46 20:52 20:52 WBC 12.91 H MPV 9.1 L Immature Gran # 0.05 H Neutrophils # Lymphocytes # Monocytes # 1.34 H Eosinophils # 0.59 H Basophils # 0.14 H ABG pH ABG pCO2 ABG pO2 ABG O2 Saturation Sodium Potassium Carbon Dioxide 19 L BUN 24 H Glucose 161 H POC Glucose (mg/dL) 151 H Calcium 10.7 H Creatine Kinase 40 L Urine Protein Urine Glucose (UA) Urine Blood Urine RBC Urine WBC Urine Mucus 08/04/24 08/04/24 08/05/24 21:27 21:32 00:40 WBC 13.25 H MPV 8.8 L Immature Gran # Neutrophils # 12.05 H Lymphocytes # 0.36 L Monocytes # Eosinophils # 0.01 L Basophils # ABG pH 7.26 L ABG pCO2 49 H ABG pO2 265 H ABG O2 Saturation 100.0 H Sodium Potassium Carbon Dioxide BUN Glucose POC Glucose (mg/dL) Calcium Creatine Kinase Urine Protein 2+ H Urine Glucose (UA) Trace H Urine Blood Small H Urine RBC 15 H Urine WBC 15 H Urine Mucus Rare H 08/05/24 08/05/24 08/05/24 00:40 01:02 05:39 WBC MPV Immature Gran # Neutrophils # Lymphocytes # Monocytes # Eosinophils # Basophils # ABG pH ABG pCO2 ABG pO2 220 H ABG O2 Saturation 99.9 H Sodium 136 L Potassium 3.2 L Carbon Dioxide BUN 24 H Glucose 151 H POC Glucose (mg/dL) 143 H Calcium Creatine Kinase Urine Protein Urine Glucose (UA) Urine Blood Urine RBC Urine WBC Urine Mucus 08/05/24 08/05/24 08/05/24 05:47 05:47 06:49 WBC 17.07 H MPV 8.8 L Immature Gran # 0.06 H Neutrophils # 15.40 H Lymphocytes # 0.35 L Monocytes # 1.23 H Eosinophils # 0.00 L Basophils # ABG pH ABG pCO2 ABG pO2 ABG O2 Saturation Sodium 136 L Potassium Carbon Dioxide BUN Glucose 136 H POC Glucose (mg/dL) 138 H Calcium 10.3 H Creatine Kinase Urine Protein Urine Glucose (UA) Urine Blood Urine RBC Urine WBC Urine Mucus Assessment and Plan Assessment: * 79-year-old male was found unresponsive at home. He had a witnessed seizure at the scene. Patient was neurologically fine, 1 hour prior to being discovered unresponsive. Patient had subsequent seizure in the ambulance as well. * Acute hypoxic and hypercapnic respiratory failure, on mechanical ventilation. * Aspiration pneumonia. * Brief episode of atrial fibrillation with RVR, currently in sinus rhythm. * BPH * History of depression. Patient's denies any history of dementia. Plan: * EEG was performed (on propofol 45 mcg/kg/min), which was abnormal due to background slowing, mild suppression, suggestive of generalized cerebral dysfunction as can be seen with toxic metabolic encephalopathy or related to diffuse structural brain abnormality or medication effect. Clinical correlation is recommended. No definite epileptiform activity was seen. * CTA of head and neck revealed no evidence of dissection of the cervical internal carotid arteries or vertebral arteries or any evidence of significant stenosis in the carotid bifurcations. No evidence of intracranial high-grade stenosis or intracranial aneurysm. * Continue Keppra 500 mg twice daily. Patient is received loading dose of Keppra 1000 mg in the ER. * Patient on Zosyn for aspiration pneumonia. * May need lumbar puncture, if mentation does not improve. Patient has received Lovenox, therefore cannot undergo lumbar puncture today. * Patient is currently on propofol 40 mcg/kg/min. * We will follow patient clinically. No seizure type activity noted at this time. * Discussed with patient's family in detail and nursing staff. * Thank you for the consult.
[2024-08-05 18:12] LABS: Glucose,Whole Blood 123 mg/dL (70-110)
[2024-08-05] MEDS: TAMSULOSIN 0.4 MG CAP.ER.24H PO SCH (20:20)
[2024-08-05] MEDS: FLUoxetine HCL 20 MG CAP PO SCH (20:20)
[2024-08-05 23:45] LABS: Glucose,Whole Blood 154 mg/dL (70-110)
[2024-08-06 05:26] LABS: ABG Base Excess 0.7 mmol/L; ABG HCO3 26 mmol/L (21-25); ABG Oxygen Saturation 99.6 % (94-97); ABG PCO2 41 mmHg (35-45); ABG PO2 129 mmHg (83-108); ABG TCO2 27 mmol/L (19-24); Allen Test Performed? Yes
[2024-08-06 05:28] LABS: Glucose,Whole Blood 112 mg/dL (70-110)
[2024-08-06 07:08] LABS: Basophils # (A) 0.04 10*3/uL (0.00-0.10); Basophils % (A) 0.4 %; Eosinophils # (A) 0.07 10*3/uL (0.04-0.35); Eosinophils % (A) 0.6 %; HCT 36.6 % (39.6-50.0); HGB 12.1 g/dL (13.0-17.0); Lymphocytes # (A) 0.71 10*3/uL (0.90-5.00); Lymphocytes % (A) 6.3 %; MCH 30.6 pg (27.0-32.0); MCHC 33.1 g/dL (32.0-37.0); MCV 92.7 fL (80.0-97.0); Mean Platelet Volume 8.9 fL (9.5-12.2); Monocytes # (A) 1.14 10*3/uL (0.20-1.00); Monocytes % (A) 10.1 %; Neutrophils # (A) 9.35 10*3/uL (1.80-7.70); Neutrophils % (A) 82.4 %; Platelet Count 205 10*3/uL (140-440); RBC 3.95 10*6/uL (4.40-5.60); RDW 14.2 % (11.5-14.5); WBC 11.33 10*3/uL (4.50-10.00)
--- NOTE | 2024-08-06 07:13 | P.CRDCN ---
History of Present Illness Consult date: 08/06/24 History of present illness: - . HPI: This patient has been admitted with an episode of what seems to be seizure 4 to 5 minutes. The initial EKG which I have reviewed suggests either atrial tachycardia or sinus tachycardia unlikely to be atrial fibrillation or flutter. Although I cannot exclude atrial fibrillation completely based on the available data I believe we are not dealing with atrial fibrillation but we will continue to do telemetry monitoring. Repeat EKGs have revealed sinus rhythm with PACs. On arrival on the at about 8:50 PM there is an EKG which revealed atrial tachycardia type picture with mild IVCD and nonspecific ST and T wave changes. Patient is currently intubated on the ventilator unable to obtain any meaningful history. No evidence other than the above mentioned in to suggest atrial fibrillation. We will continue to monitor. No significant cardiac history based on chart review. RELEVANT PAST MEDICAL HISTORY: Positive for benign prostatic hypertrophy underlying depression and also some dementia type picture no evidence suggest any CAD hypertension or diabetes. MEDICATIONS: See chart ALLERGIES: None. REVIEW OF SYSTEMS:. PHYSICIAL EXAM: Is on the ventilator vitals are stable S1-S2 heard normally rhythm is sinus lungs reveal air entry is assisted by the ventilator abdomen is soft lower extremities reveal diminished pulses Central nervous system assessment not performed. IMPRESSION: 1. Probable new onset seizure. 2. No form evidence to suggest any atrial fibrillation available on review of EKG and rhythm strips. 3. Probable paroxysmal atrial tachycardia resolved now in sinus rhythm. 4.. 5.. RECOMMENDATIONS: Continue telemetry and if patient develops atrial fibrillation we will reevaluate him but upon discharge she should have a 30-day event monitor. Will come back and see him as needed please call us back if you see any significant arrhythmia.. Past Medical History Past Medical History: Dementia Additional Past Medical History / Comment(s): kidney stones, History of Any Multi-Drug Resistant Organisms: None Reported Past Surgical History: Hernia Repair, Orthopedic Surgery, Tonsillectomy Additional Past Surgical History / Comment(s): Broken arm with surgery, hernia repair as , hernia inguinal repair, Past Anesthesia/Blood Transfusion Reactions: No Reported Reaction Past Psychological History: No Psychological Hx Reported, Depression Smoking Status: Never smoker - Past Family History Mother Family Medical History: No Reported History Medications and Allergies Home Medications Medication Instructions Recorded Confirmed Type Ammonium Lactate [Amlactin] 1 applic TOPICAL BID 08/05/24 08/05/24 History FLUoxetine HCL [Fluoxetine HCl] 60 mg PO HS 08/05/24 08/05/24 History Multivit/Iron Sulf/Folic Acid 1 tab PO DAILY 08/05/24 08/05/24 History [Multivitamin with Iron] Simethicone [Gas-X] 125 mg PO DIRECTED 08/05/24 08/05/24 History Tamsulosin [Flomax] 0.4 mg PO HS 08/05/24 08/05/24 History risperiDONE [RisperDAL] 0.5 mg PO DAILY 08/05/24 08/05/24 History Allergies Allergy/AdvReac Type Severity Reaction Status Date / Time No Known Allergies Allergy Verified 08/05/24 10:02 Physical Exam Vitals: Vital Signs Temp Pulse Resp BP Pulse Ox FiO2 08/06/24 07:00 60 18 127/78 99 08/06/24 06:00 67 19 105/61 99 08/06/24 05:00 60 22 121/76 99 08/06/24 04:34 69 22 08/06/24 04:27 63 22 40 08/06/24 04:00 63 22 125/96 98 40 08/06/24 03:00 65 22 113/73 98 08/06/24 02:00 61 23 89/56 97 08/06/24 01:00 98.9 F 63 21 118/74 98 08/06/24 00:26 66 22 08/06/24 00:19 65 22 40 08/06/24 00:00 68 20 110/69 99 40 08/05/24 23:00 68 22 125/81 98 08/05/24 22:00 67 22 104/66 98 08/05/24 21:24 71 22 08/05/24 21:17 65 22 40 08/05/24 21:00 98.7 F 64 22 103/71 97 08/05/24 20:00 68 22 113/79 98 40 08/05/24 19:00 77 22 127/86 98 08/05/24 18:00 68 22 120/78 98 08/05/24 17:00 75 22 124/83 98 08/05/24 16:05 72 08/05/24 16:00 97.7 F 70 22 118/80 40 08/05/24 15:53 69 08/05/24 15:51 40 08/05/24 15:00 68 22 114/74 97 08/05/24 14:00 74 22 114/77 97 08/05/24 13:00 75 23 116/80 96 08/05/24 12:35 72 08/05/24 12:24 71 08/05/24 12:17 40 08/05/24 12:00 99.3 F 70 24 115/77 96 40 08/05/24 11:00 72 22 123/80 96 08/05/24 10:00 75 22 132/80 96 08/05/24 09:00 76 22 121/83 97 08/05/24 08:35 70 08/05/24 08:22 67 08/05/24 08:20 40 08/05/24 08:00 98.8 F 67 113/78 96 40 08/05/24 07:45 67 22 117/82 97 08/05/24 07:30 65 22 121/85 97 08/05/24 07:15 67 22 125/85 97 Intake and Output 08/05/24 08/06/24 08/06/24 22:59 06:59 14:59 Intake Total 1226.363 9657.158 Output Total 265 315 Balance 3434.262 3812.158 Intake: IV 960 1080 .9 KVOs 160 180 Lactated Ringers 1,000 ml 800 900 @ 100 mls/hr IV .Q10H [facility] Rx#:[id number] Intake, IV Titration 111.165 185.158 Amount propofoL 1,000 mg In 111.165 185.158 Empty Bag 1 bag @ 15 MCG/ KG/MIN 5.715 mls/hr IV . [id number] [facility] Rx#:[id number] Tube Feeding 180 270 Other 30 Output: Urine 265 315 Other: Voiding Method Indwelling Catheter Indwelling Catheter Weight 64 kg Results 08/05/24 05:47 08/05/24 08:53 Comprehensive Metabolic Panel 08/05/24 Range/Units 08:53 Potassium 3.9 (3.5-5.1) mmol/L Current Medications Generic Name Dose Route Start Last Admin Trade Name Freq PRN Reason Stop Dose Admin Albuterol/Ipratropium 3 ml 08/05/24 04:00 08/06/24 04:26 Ipratropium-Albuterol 3 Ml Neb INHALATION 3 ml RT-Q4H [facility] Administration Chlorhexidine Gluconate 15 ml 08/05/24 09:00 08/05/24 20:20 Chlorhexidine Gluconate 15 Ml Cup MUCOUS MEM 15 ml BID [facility] Administration Enoxaparin Sodium 40 mg 08/05/24 09:00 08/05/24 08:29 Enoxaparin 40 Mg/0.4 Ml Syringe SQ 40 mg DAILY [facility] Administration Fluoxetine HCl 60 mg 08/05/24 21:00 08/05/24 20:20 Fluoxetine Hcl 20 Mg Cap PO 60 mg HS [facility] Administration Propofol 1,000 mg/ IV Solution 100 mls @ 5.715 mls/hr 08/05/24 00:15 08/06/24 05:48 IV 45 mcg/kg/min .[id number] [facility] 17.146 mls/hr Administration Protocol 15 MCG/KG/MIN Piperacillin Sod/Tazobactam 100 mls @ 25 mls/hr 08/05/24 01:00 08/06/24 00:10 Sod 3.375 gm/ Sodium Chloride IVPB 25 mls/hr Q8H [facility] Administration Protocol Lactated Ringer's 1,000 mls @ 100 mls/hr 08/05/24 02:00 08/05/24 23:56 Lactated Ringers IV 100 mls/hr .Q10H [facility] Administration Levetiracetam 500 mg 08/05/24 09:00 08/05/24 20:20 Levetiracetam Iv 500 Mg/5 Ml Vial IVP 500 mg Q12HR [facility] Administration Lorazepam 1 mg 08/05/24 00:28 Lorazepam 1 Mg/0.5 Ml Vial IV Q4HR PRN seizure Miscellaneous Information 1 each 08/05/24 00:20 Potassium Replacement Protocol 1 Each Misc MISCELLANE DAILY PRN Per Protocol Miscellaneous Information 1 each 08/05/24 00:20 Magnesium Replacement Protocol 1 Each Misc MISCELLANE DAILY PRN Per Protocol Protocol Naloxone HCl 0.2 mg 08/05/24 00:20 Naloxone 0.4 Mg/Ml 1 Ml Vial IV Q2M PRN Opioid Reversal Pantoprazole Sodium 40 mg 08/05/24 09:15 08/05/24 09:50 Pantoprazole 40 Mg/10 Ml Vial IVP 40 mg DAILY [facility] Administration Tamsulosin HCl 0.4 mg 08/05/24 21:00 08/05/24 20:20 Tamsulosin 0.4 Mg Cap.Er.24h PO 0.4 mg HS [facility] Administration Intake and Output 08/05/24 08/06/24 08/06/24 22:59 06:59 14:59 Intake Total 6772.910 0513.158 Output Total 265 315 Balance 8918.854 9978.158 Intake: IV 960 1080 .9 KVOs 160 180 Lactated Ringers 1,000 ml 800 900 @ 100 mls/hr IV .Q10H [facility] Rx#:[id number] Intake, IV Titration 111.165 185.158 Amount propofoL 1,000 mg In 111.165 185.158 Empty Bag 1 bag @ 15 MCG/ KG/MIN 5.715 mls/hr IV . [id number] [facility] Rx#:[id number] Tube Feeding 180 270 Other 30 Output: Urine 265 315 Other: Voiding Method Indwelling Catheter Indwelling Catheter Weight 64 kg 08/05/24 05:47 08/05/24 08:53
[2024-08-06 07:22] LABS: African American GFR (CKD) >90 (>60 ml/min/1.73 sqM); Anion Gap 7 mmol/L; Blood Urea Nitrogen 16 mg/dL (9-20); Carbon Dioxide 21 mmol/L (22-30); Chloride 108 mmol/L (98-107); Glucose 112 mg/dL (74-99); Non-African American GFR(CKD) >90 (>60 ml/min/1.73 sqM); Potassium 3.5 mmol/L (3.5-5.1); Sodium 136 mmol/L (137-145)
[2024-08-06] MEDS ORDERED: risperiDONE 0.5 MG TAB PO SCH (09:00)
[2024-08-06] MEDS: POTASSIUM BICARBONATE/CIT AC 20 MEQ TABLET.EFF NG-TUBE SCH (09:45)
[2024-08-06 09:58] VITALS: BMI 22.1
--- NOTE | 2024-08-06 12:30 | XR ---
EXAMINATION TYPE: XR chest 1V portable DATE OF EXAM: 08/06/2024 5:36 AM COMPARISON: None. CLINICAL INDICATION: Male, 79 years old with history of Tube placement, TECHNIQUE: XR chest 1V portable view(s) obtained. FINDINGS: The heart size is normal. The pulmonary vasculature is normal. The lungs are clear. Endotracheal tube tip is 6.4 cm above the [place]. Nasogastric tube transverses the thorax. IMPRESSION: 1. No acute pulmonary process. [facility], , 08/06/2024 12:28 PM
--- NOTE | 2024-08-06 12:56 | CA ---
Transthoracic Echo Report Name: Zachary Brown Age: 79 Gender: M : 1945 Exam Date: 08/06/2024 07:29 Exam Location: [facility] Ht (in): 67 Wt (lb): 133 Ordering Physician: Katarzyna Mckeon MD Attending/Referring Phys: Vice President Of Compliance Deirdre Barrera RDCS Procedure CPT: Indications: Syncope, seizure, transient A-fib Cardiac Hx: Technical Quality: Fair Contrast 1: Agitated Saline Total Dose (mL): 7 Contrast 2: Total Dose (mL): MEASUREMENTS (Male / Female) Normal Values 2D ECHO LV Diastolic Diameter PLAX 5.3 cm 4.2 - 5.9 / 3.9 - 5.3 cm LV Systolic Diameter PLAX 3.4 cm IVS Diastolic Thickness 1.2 cm 0.6 - 1.0 / 0.6 - 0.9 cm LVPW Diastolic Thickness 1.3 cm 0.6 - 1.0 / 0.6 - 0.9 cm LV Relative Wall Thickness 0.5 RV Internal Dim ED PLAX 4.0 cm LA Systolic Diameter LX 4.2 cm 3.0 - 4.0 / 2.7 - 3.8 cm M-MODE Aortic Root Diameter MM 4.2 cm AV Cusp Separation MM 2.6 cm DOPPLER AV Peak Velocity 82.7 cm/s AV Peak Gradient 2.7 mmHg TR Peak Velocity 213.8 cm/s TR Peak Gradient 18.3 mmHg Right Ventricular Systolic Press 33.3 mmHg FINDINGS Left Ventricle Left ventricular ejection fraction is estimated at 55-60 %. Normal left ventricular systolic function with no obvious regional wall motion abnormalities. Mildly increased left ventricular wall thickness. Right Ventricle Right ventricular dilatation. Right Atrium No right atrial thrombus or mass seen. Negative agitated saline bubble study for right to left shunt. Left Atrium Mildly increased left atrial diameter. No left atrial thrombus or mass present. Mitral Valve Structurally normal mitral valve. No mitral stenosis, regurgitation or prolapse. thickened mitral valve leaflets Aortic Valve Trileaflet aortic valve. No aortic valve stenosis , mild regurgitation.aortic valve sclerosis. Tricuspid Valve Structurally normal tricuspid valve. Mild tricuspid regurgitation. Pulmonic Valve No pulmonic regurgitation.pulmonic valve not well visualized. Pericardium No pericardial effusion. Aorta Mild aortic dilatation at the level of the sinuses of valsalva 42 mm CONCLUSIONS 1. Normal left ventricular size and systolic function 2. No evidence of shunting by contrast bubble study 3. Mild aortic and tricuspid regurgitation Previewed by: Dr. aHnk Loredo MD (Electronically Signed) Final Date: 06 August 2024 12:55
--- NOTE | 2024-08-06 13:08 | P.PN ---
Subjective Progress Note Date: 08/06/24 No new events overnight. EEG completed on propofol, and neg for epileptiform activity. General: intubated, sedated HEENT: normocephalic, atraumatic, no tracheal deviation Respiratory: symmetric chest rise, no cyanosis, ventilator dependent CVS: perfusing all extremities, no distal gangrene, no pitting edema GI: soft, ND : no SPT, no CVAT, jaramillo is present Neuro: sedated Hospital course: 79-year-old male with PMH of dementia who presents emergency department via EMS after being found unresponsive and having undergone seizure activity. Labratory review: - WBC 12.91, hemoglobin 14.6, medic at 44.4, platelet 309; sodium 138, potassium 3.8, bicarb 19, BUN 24, creatinine 0.88, calcium 10.7, magnesium 1.9, total bilirubin 0.8, AST 34, ALT 25, alkaline phosphatase 77, creatinine kinase of 40 - ABG: pH 7.26, pCO2 49, PO2 265 - Troponin <0.012 - Urinalysis unremarkable; serum alcohol <10 Imaging: - Chest x-ray done in the ER showed bilateral lower lung atelectasis and endotracheal tube in normal position, with recommending advancing of the NG tube 3 to 5 cm - CT brain showed no acute intracranial process - CT angiography head/neck showed no evidence of dissection of the cervical inte rnal carotid arteries or vertebral arteries or any evidence of significant stenosis at the carotid bifurcations and no evidence of intracranial high-grade stenosis or intracranial aneurysm - CT chest/abdomen/pelvis showed 4.1 cm ascending thoracic aortic aneurysm, small right pleural effusion with compressive atelectasis right lower lobe markedly enlarged prostate gland, bilateral renal cyst, right hepatic lobe cyst and multiple bladder calculi - EKG done in the ER showed heart rate of , no ST segment elevation or depression seen, no T-wave inversions seen. Vitals: - On arrival: Blood pressure 178/111, heart rate 121, respiratory rate 22, SpO2 93% on manual bagging - Most recently: Blood pressure 152/95, heart rate 71, respiratory rate 20, SpO2 97% on mechanical ventilation Patient admitted to internal medicine service Assessment and plan 79-year-old male with PMH of dementia who presents emergency department via EMS after being found unresponsive and having undergone seizure activity. #New onset seizure without known seizure history #Acute metabolic encephalopathy - Suffered at least 2 general tonic-clonic seizures, one prior to EMS arrival and one witnessed by EMS - Received 1000 mg IVP Keppra, now on 500 mg Keppra twice daily - Serum sodium, magnesium wit once in EDhin normal limits - TSH is 0.71 - Urine drug screen is negative - EEG ordered, no epileptiform activity, generalized slowing; this was done on propofol - Maintain seizure, fall and aspiration precaution - Neurology consulted, appreciate recommendations - Ativan 1 mg IVP as needed for seizure activity - Consideration of lumbar puncture #SIRS criteria met on admission #Possible aspiration ammonia - Continue with LR at 100 cc/h - Continue with Zosyn 3.375 g every 8 hours - Sputum culture ordered, currently pending #Hypercalcemia, resolved - Initial lab work calcium 10.7 - Repeat lab work showed calcium 10.2 - Albumin 4.5 #Hypokalemia - On admission potassium 3.8, on repeat lab 3.2 - Potassium replacement per protocol with a total of 40 mEq potassium bicarbonate through NG tube - Will continue to monitor BMP GI prophylaxis: Consider adding if will be intubated > 48 hours DVT prophylaxis: Lovenox 40 mg subcu daily The patient is admitted with an anticipated more than than 2 midnight stay for evaluation of new onset tonic-clonic seizure and SIRS criteria met on admission. CODE STATUS: No code Discussed with: Anticipated discharge place: Pending clinical course Dictation was produced using [employer] dictation software. please excuse any grammatical, word or spelling errors. Objective - Vital Signs Vital signs: Vital Signs Temp 97.5 F L 08/06/24 12:00 Pulse 80 08/06/24 12:53 Resp 26 H 08/06/24 12:00 BP 152/81 08/06/24 12:00 Pulse Ox 96 08/06/24 12:00 FiO2 40 08/06/24 10:18 Intake & Output 08/05/24 08/06/24 08/06/24 18:59 06:59 18:59 Intake Total 2999.283 1036.158 813.092 Output Total 400 455 745 Balance 5885.565 5850.158 68.092 Weight 60.4 kg 64 kg 64 kg Intake: IV 1240 1560 600 .9 KVOs 140 260 100 Lactated Ringers 1,000 ml 1100 1300 500 @ 100 mls/hr IV .Q10H ESTEFANI Rx#:[id number] Intake, IV Titration 233.741 185.158 73.092 Amount propofoL 1,000 mg In 233.741 185.158 73.092 Empty Bag 1 bag @ 15 MCG/ KG/MIN 5.715 mls/hr IV . [id number] ESTEFANI Rx#:[id number] Tube Feeding 120 390 110 Other 60 30 Output: Urine 400 455 745 Other: Voiding Method Indwelling Catheter Indwelling Catheter # Voids 1 - Labs CBC & Chem 7: 08/06/24 06:08/06/24 06:25 Labs: Abnormal Lab Results - Last 24 Hours (Table) 08/05/24 08/05/24 08/06/24 Range/Units 18:11 23:44 05:24 WBC (4.50-10.00) 10*3/uL RBC (4.40-5.60) 10*6/uL Hgb (13.0-17.0) g/dL Hct (39.6-50.0) % MPV (9.5-12.2) fL Neutrophils # (1.80-7.70) 10*3/uL Lymphocytes # (0.90-5.00) 10*3/uL Monocytes # (0.20-1.00) 10*3/uL ABG pO2 129 H (83-108) mmHg ABG HCO3 26 H (21-25) mmol/L ABG Total CO2 27 H (19-24) mmol/L ABG O2 Saturation 99.6 H (94-97) % Hemoglobin 11.5 L (13.0-17.5) gm/dL Sodium (137-145) mmol/L Chloride (98-107) mmol/L Carbon Dioxide (22-30) mmol/L Glucose (74-99) mg/dL POC Glucose (mg/dL) 123 H 154 H (70-110) mg/dL 08/06/24 08/06/24 08/06/24 Range/Units 05:26 06:25 06:25 WBC 11.33 H (4.50-10.00) 10*3/uL RBC 3.95 L (4.40-5.60) 10*6/uL Hgb 12.1 L (13.0-17.0) g/dL Hct 36.6 L (39.6-50.0) % MPV 8.9 L (9.5-12.2) fL Neutrophils # 9.35 H (1.80-7.70) 10*3/uL Lymphocytes # 0.71 L (0.90-5.00) 10*3/uL Monocytes # 1.14 H (0.20-1.00) 10*3/uL ABG pO2 (83-108) mmHg ABG HCO3 (21-25) mmol/L ABG Total CO2 (19-24) mmol/L ABG O2 Saturation (94-97) % Hemoglobin (13.0-17.5) gm/dL Sodium 136 L (137-145) mmol/L Chloride 108 H (98-107) mmol/L Carbon Dioxide 21 L (22-30) mmol/L Glucose 112 H (74-99) mg/dL POC Glucose (mg/dL) 112 H (70-110) mg/dL Microbiology - Last 24 Hours (Table) 08/05/24 01:10 Gram Stain - Preliminary Sputum Sputum Culture - Preliminary
[2024-08-06] MEDS: DEXMEDETOMIDINE/0.9% NACL(PMX) 400 MCG in EMPTY BAG 1 BAG IV SCH (13:18)
--- NOTE | 2024-08-06 14:32 | P.PN ---
Subjective Progress Note Date: 08/06/24 Principal diagnosis: New onset seizure with acute hypoxic and hypercapnic respiratory failure requiring intubation mechanical ventilation Patient is a 79-year-old male with past medical history significant for dementia, depression, thyroid nodule, BPH. Patient was brought into the emergency department by EMS late last night. At home, he was suddenly noted to to be confused and nonverbal by his . When EMS arrived he was unresponsive. Flaccid in all 4 extremity. Right gaze deviation noted. In route, patient developed generalized tonic-clonic seizure-like activity. He was incontinent to urine and stool. He received 10 mg of IM Versed. On arrival, patient was in tubated for airway protection by the ER provider. Gastric content noted in his oropharynx on intubation. Also, patient had some emesis on his T-shirt. Family currently not at bedside to provide further information. According to the ER note, patient was reportedly feeling well prior to this earlier in the day. He did go to his [facility] program. No reported history of seizures. Reportedly weaning off Risperdal at home. Questionable history of TIA. Workup in the emergency department including a brain CT which did not show any acute intracranial hemorrhage or mass effect. Nonspecific white matter changes likely secondary to chronic small vessel ischemic disease. Brain CT angio did not show any evidence of dissection of the cervical internal carotid arteries or vertebral arteries or any significant stenosis at the carotid bifurcations. No evidence of intracranial high-grade stenosis or intracranial aneurysm. Neurology has been consulted. Patient was loaded with IV Keppra in the ED. Subsequently, patient did have a CT of his chest, abdomen, pelvis. Left lower lobe dependent atelectasis or infiltrate. Right-sided small pleural effusion with compressive atelectasis. Incidental findings including enlarged prostate gland with a Roman catheter and decompressed bladder. Multiple stones in the bladder. Bilateral renal cyst. Right hepatic lobe cyst. Patient is currently being evaluated in the emergency department. He is intubated to the mechanical ventilator. Sedated on propofol at 35 mcg/kg/min. Does not follow commands. Withdraws the pain in all 4 extremities. Post intubation chest x-ray showing endotracheal tube around the [place]. Orogastric tube coursing below the diaphragm. Bilateral lower lung atelectasis. Initial postintubation ABG with a PaO2 of 265, pCO2 49, pH of 7.26. This was done on ventilator settings of assist-control, respiratory rate 18, tidal volume 400, FiO2 100%, PEEP of 5. FiO2 is since been cut down to 60%. He is synchronous with current ventilator settings. No significant endotracheal tube secretions. Peak pressures around 19. CBC with a WBC count of 13.3, hemoglobin 14, platelets 279. BMP: Sodium 136, potassium 3.2, chloride 103, serum bicarb 24, BUN 24, creatinine 0.86, glucose 151. Alcohol level less than 10. EKG: Atrial fibrillation with RVR, rate 129 bpm. UA unremarkable for UTI. Urine toxicology screen also negative. No recorded fevers. Current rhythm appears in sinus on bedside monitor. Blood pressures currently 141/91 mmHg. Started empirically on Zosyn for his aspiration. Patient was seen today on 08/06/24, patient remains in the ICU, intubated and mechanically ventilated, he is on assist-control rate of 22 tidal volume 400 FiO2 40% PEEP of 5 ABG showed a pO2 of 129 pCO2 41 pH of 7.40 and the patient was placed on 35% FiO2. Patient is on propofol at 30 mcg/kg/min he is also on LR at 100 cc/h. Apparently his CODE STATUS has been changed to DNR CODE STATUS, patient is arousable, follows simple instructions, hence I recommended pressure support of 10 and CPAP, and if tolerated will proceed to weaning and extubation today. In the meantime we will continue Zosyn, continue seizure medications, patient is being followed by other consultants including nephrology and cardiology. WBC is 11.3 hemoglobin 12.1, basic metabolic profile is normal renal profile is normal chest x-ray showed no acute process. Objective - Vital Signs Vital signs: Vital Signs Temp 97.5 F L 08/06/24 12:00 Pulse 87 08/06/24 14:00 Resp 15 08/06/24 14:00 BP 159/100 08/06/24 14:00 Pulse Ox 94 L 08/06/24 14:00 FiO2 40 08/06/24 10:18 Intake & Output 08/05/24 08/06/24 08/06/24 18:59 06:59 18:59 Intake Total 6413.887 3385.158 1054.265 Output Total 473 855 6857 Balance 6730.069 5947.158 -140.735 Weight 60.4 kg 64 kg 64 kg Intake: IV 1240 1560 840 .9 KVOs 140 260 140 Lactated Ringers 1,000 ml 1100 1300 700 @ 100 mls/hr IV .Q10H ESTEF[facility] Rx#:[id number] Intake, IV Titration 233.741 185.158 74.265 Amount Dexmedetomidine/0.9% NaCl 1.173 (Pmx) 400 mcg In Empty Bag 1 bag @ 0.2 MCG/KG/HR 3.2 mls/hr IV .Q24H ESTEF[facility] Rx#:[id number] propofoL 1,000 mg In 233.741 185.158 73.092 Empty Bag 1 bag @ 15 MCG/ KG/MIN 5.715 mls/hr IV . [id number] ESTEFANI Rx#:[id number] Tube Feeding 120 390 110 Other 60 30 Output: Urine 296 604 6055 Other: Voiding Method Indwelling Catheter Indwelling Catheter Indwelling Catheter # Voids 1 - Exam GENERAL EXAM: 79-year-old white male intubated mechanically ventilated sedated in no distress. HEAD: Normocephalic and atraumatic EYES: Normal reaction of pupils, equal size. Slow, horizontal nystagmus. Anicteric sclera. NOSE: Clear with pink turbinates. THROAT: No erythema or exudates. NECK: No masses, no JVD. CHEST: No chest wall deformity. LUNGS: Equal air entry with no crackles, wheeze, rhonchi or dullness. Intubated to the mechanical ventilated. No significant endotracheal tube secretions. Peak pressures 19. CVS: S1 and S2 normal with systolic murmur, regular rhythm. No extra heart sounds ABDOMEN: No hepatosplenomegaly, active bowel sounds, no guarding or rigidity. SKIN: No rashes. Approximated right forearm incision. CENTRAL NERVOUS SYSTEM: Could not assess, patient is sedated intubated mechan ically ventilated EXTREMITIES: No clubbing edema or cyanosis. - Labs CBC & Chem 7: 08/06/24 06:25 08/06/24 06:25 Labs: Abnormal Lab Results - Last 24 Hours (Table) 08/05/24 08/05/24 08/06/24 Range/Units 18:11 23:44 05:24 WBC (4.50-10.00) 10*3/uL RBC (4.40-5.60) 10*6/uL Hgb (13.0-17.0) g/dL Hct (39.6-50.0) % MPV (9.5-12.2) fL Neutrophils # (1.80-7.70) 10*3/uL Lymphocytes # (0.90-5.00) 10*3/uL Monocytes # (0.20-1.00) 10*3/uL ABG pO2 129 H (83-108) mmHg ABG HCO3 26 H (21-25) mmol/L ABG Total CO2 27 H (19-24) mmol/L ABG O2 Saturation 99.6 H (94-97) % Hemoglobin 11.5 L (13.0-17.5) gm/dL Sodium (137-145) mmol/L Chloride (98-107) mmol/L Carbon Dioxide (22-30) mmol/L Glucose (74-99) mg/dL POC Glucose (mg/dL) 123 H 154 H (70-110) mg/dL 08/06/24 08/06/24 08/06/24 Range/Units 05:26 06:25 06:25 WBC 11.33 H (4.50-10.00) 10*3/uL RBC 3.95 L (4.40-5.60) 10*6/uL Hgb 12.1 L (13.0-17.0) g/dL Hct 36.6 L (39.6-50.0) % MPV 8.9 L (9.5-12.2) fL Neutrophils # 9.35 H (1.80-7.70) 10*3/uL Lymphocytes # 0.71 L (0.90-5.00) 10*3/uL Monocytes # 1.14 H (0.20-1.00) 10*3/uL ABG pO2 (83-108) mmHg ABG HCO3 (21-25) mmol/L ABG Total CO2 (19-24) mmol/L ABG O2 Saturation (94-97) % Hemoglobin (13.0-17.5) gm/dL Sodium 136 L (137-145) mmol/L Chloride 108 H (98-107) mmol/L Carbon Dioxide 21 L (22-30) mmol/L Glucose 112 H (74-99) mg/dL POC Glucose (mg/dL) 112 H (70-110) mg/dL Microbiology - Last 24 Hours (Table) 08/05/24 01:10 Gram Stain - Preliminary Sputum Sputum Culture - Preliminary Assessment and Plan Assessment: Impression: New onset seizure activity, patient was given 10 mg of IV Valium in-route to the hospital. Also, loaded with 1 g of Keppra in the ED. remains intubated and mechanically ventilated, EEG done by neurology showed generalized cerebral dysfunction related to toxic metabolic encephalopathy no definite epileptiform activity noted. Acute hypoxemic and hypercapnic respiratory failure, secondary to above, Possible aspiration, not seen on chest x-ray, will likely discontinue antibiotics Brief episode of atrial fibrillation with rapid ventricular response, current rhythm appears normal sinus on bedside monitor Hypokalemia History of dementia BPH Depression Recommendation: Continue ventilatory support however the patient will be given a trial of weaning and a trial of pressure support and CPAP. Continue bronchodilators Continue GI DVT prophylaxis Discontinue propofol and consider a trial of weaning today Continue Keppra, unless discontinued by neurology Updated his on his condition at bedside. Patient remains critically ill Critical care time is 34 Time with Patient: Greater than 30
[2024-08-06] MEDS: NEOMYCIN-BACITRACIN-POLY OINT 14 GM TUBE TOPICAL SCH (17:29)
[2024-08-06 18:12] LABS: Glucose,Whole Blood 122 mg/dL (70-110)
--- NOTE | 2024-08-06 21:27 | P.PN ---
Subjective Progress Note Date: 08/06/24 Patient was seen for a follow-up. Patient is laying in the bed. Patient was extubated at around 2 PM. He is still on Precedex 0.3 mcg/kg/h. This is because he is still slightly restless. Patient admits to having headache, but could not tell how severe it is. Per nurse, he is answering appropriately, not fully oriented but making sense. Objective - Vital Signs Vital signs: Vital Signs Temp 98.3 F 08/06/24 20:00 Pulse 73 08/06/24 21:00 Resp 20 08/06/24 21:00 BP 133/86 08/06/24 21:00 Pulse Ox 97 08/06/24 21:00 FiO2 40 08/06/24 10:18 Intake & Output 08/06/24 08/06/24 08/07/24 06:59 18:59 06:59 Intake Total 2135.158 1536.051 347.067 Output Total 455 1780 260 Balance 1680.158 -243.949 87.067 Weight 64 kg 64 kg Intake: IV 1560 1300 330 .9 KVOs 260 200 30 Lactated Ringers 1,000 ml 1300 1100 300 @ 100 mls/hr IV .Q10H ESTEF[facility] Rx#:[id number] Intake, IV Titration 185.158 96.051 17.067 Amount Dexmedetomidine/0.9% NaCl 22.959 17.067 (Pmx) 400 mcg In Empty Bag 1 bag @ 0.2 MCG/KG/HR 3.2 mls/hr IV .Q24H ESTEFANI Rx#:[id number] propofoL 1,000 mg In 185.158 73.092 Empty Bag 1 bag @ 15 MCG/ KG/MIN 5.715 mls/hr IV . [id number] ESTEFANI Rx#:[id number] Tube Feeding 390 110 Other 30 Output: Urine 455 1780 260 Other: Voiding Method Indwelling Catheter Indwelling Catheter Indwelling Catheter - Exam Patient is quite alert and awake, but appears slightly encephalopathic. Delayed response. His speech is clear with no obvious aphasia or dysarthria, although his speech is slightly hoarse from recent extubation. Answers appropriately. When I asked patient again about the headache, states "I have no headache". Face is symmetric. Pupils are equal, round and reacting. Visual bernal are full on confrontation with no neglect. Face is symmetric. He moves his arms and legs very normally and equally. Bone Cooking Operator is at least 4+. He wiggle his ankles and toes very normally. - Labs CBC & Chem 7: 08/06/24 06:08/06/24 06:25 Labs: Abnormal Lab Results - Last 24 Hours (Table) 08/05/24 08/06/24 08/06/24 Range/Units 23:44 05:24 05:26 WBC (4.50-10.00) 10*3/uL RBC (4.40-5.60) 10*6/uL Hgb (13.0-17.0) g/dL Hct (39.6-50.0) % MPV (9.5-12.2) fL Neutrophils # (1.80-7.70) 10*3/uL Lymphocytes # (0.90-5.00) 10*3/uL Monocytes # (0.20-1.00) 10*3/uL ABG pO2 129 H (83-108) mmHg ABG HCO3 26 H (21-25) mmol/L ABG Total CO2 27 H (19-24) mmol/L ABG O2 Saturation 99.6 H (94-97) % Hemoglobin 11.5 L (13.0-17.5) gm/dL Sodium (137-145) mmol/L Chloride (98-107) mmol/L Carbon Dioxide (22-30) mmol/L Glucose (74-99) mg/dL POC Glucose (mg/dL) 154 H 112 H (70-110) mg/dL 08/06/24 08/06/24 08/06/24 Range/Units : 06:25 18:11 WBC 11.33 H (4.50-10.00) 10*3/uL RBC 3.95 L (4.40-5.60) 10*6/uL Hgb 12.1 L (13.0-17.0) g/dL Hct 36.6 L (39.6-50.0) % MPV 8.9 L (9.5-12.2) fL Neutrophils # 9.35 H (1.80-7.70) 10*3/uL Lymphocytes # 0.71 L (0.90-5.00) 10*3/uL Monocytes # 1.14 H (0.20-1.00) 10*3/uL ABG pO2 (83-108) mmHg ABG HCO3 (21-25) mmol/L ABG Total CO2 (19-24) mmol/L ABG O2 Saturation (94-97) % Hemoglobin (13.0-17.5) gm/dL Sodium 136 L (137-145) mmol/L Chloride 108 H (98-107) mmol/L Carbon Dioxide 21 L (22-30) mmol/L Glucose 112 H (74-99) mg/dL POC Glucose (mg/dL) 122 H (70-110) mg/dL Microbiology - Last 24 Hours (Table) 08/05/24 01:10 Gram Stain - Preliminary Sputum Sputum Culture - Preliminary Assessment and Plan Assessment: * 79-year-old male was found unresponsive at home. He had a witnessed seizure at the scene. Patient was neurologically fine, 1 hour prior to being discovered unresponsive. Patient had subsequent seizure in the ambulance as well. * Status post extubation * Aspiration pneumonia. * Brief episode of atrial fibrillation with RVR, currently in sinus rhythm. * BPH * History of depression. Patient's denies any history of dementia. Plan: * Patient is doing much better. He is status post extubation. He is answering appropriately. * EEG was performed (on propofol 45 mcg/kg/min), which was abnormal due to background slowing, mild suppression, suggestive of generalized cerebral dysfunction as can be seen with toxic metabolic encephalopathy or related to diffuse structural brain abnormality or medication effect. Clinical correlation is recommended. No definite epileptiform activity was seen. * CTA of head and neck revealed no evidence of dissection of the cervical internal carotid arteries or vertebral arteries or any evidence of significant stenosis in the carotid bifurcations. No evidence of intracranial high-grade stenosis or intracranial aneurysm. * Continue Keppra 500 mg twice daily. Patient is received loading dose of Keppra 1000 mg in the ER. * Patient on Zosyn for aspiration pneumonia. * No indication for lumbar puncture. Resume Lovenox. Patient to receive heparin 5000 unit subcu x 1 dose only tonight. Then he will continue Lovenox from morning. * Patient currently on Precedex for restlessness. * Discussed with patient's nurse in detail. * Dr. Dan covering neurology service over the weekend. Dr. Edgar will start service from Friday.
[2024-08-06] MEDS: HEPARIN SODIUM,PORCINE 5,000 UNIT/ML 1 ML VIAL SQ STA (21:30)
[2024-08-06 23:17] LABS: Glucose,Whole Blood 119 mg/dL (70-110)
[2024-08-07 05:58] LABS: Basophils # (A) 0.07 10*3/uL (0.00-0.10); Basophils % (A) 0.7 %; Eosinophils # (A) 0.06 10*3/uL (0.04-0.35); Eosinophils % (A) 0.6 %; HCT 34.7 % (39.6-50.0); HGB 11.5 g/dL (13.0-17.0); Lymphocytes # (A) 0.75 10*3/uL (0.90-5.00); Lymphocytes % (A) 7.4 %; MCH 30.7 pg (27.0-32.0); MCHC 33.1 g/dL (32.0-37.0); MCV 92.5 fL (80.0-97.0); Mean Platelet Volume 9.2 fL (9.5-12.2); Monocytes # (A) 0.97 10*3/uL (0.20-1.00); Monocytes % (A) 9.5 %; Neutrophils # (A) 8.28 10*3/uL (1.80-7.70); Neutrophils % (A) 81.4 %; Platelet Count 225 10*3/uL (140-440); RBC 3.75 10*6/uL (4.40-5.60); WBC 10.17 10*3/uL (4.50-10.00)
[2024-08-07 06:16] LABS: African American GFR (CKD) >90 (>60 ml/min/1.73 sqM); Anion Gap 3 mmol/L; Blood Urea Nitrogen 8 mg/dL (9-20); Calcium 9.3 mg/dL (8.4-10.2); Carbon Dioxide 27 mmol/L (22-30); Chloride 108 mmol/L (98-107); Glucose 92 mg/dL (74-99); Non-African American GFR(CKD) >90 (>60 ml/min/1.73 sqM); Potassium 3.1 mmol/L (3.5-5.1); Sodium 138 mmol/L (137-145)
[2024-08-07] MEDS: POTASSIUM CHLORIDE 10 MEQ in WATER FOR INJECTION 1 100ML.BAG IVPB SCH (06:35)
--- NOTE | 2024-08-07 07:20 | XR ---
EXAMINATION TYPE: XR chest 1V portable DATE OF EXAM: 08/07/2024 5:50 AM COMPARISON: Chest radiographs from 08/06/2024. CLINICAL INDICATION: Male, 79 years old with history of Tube placement; [facility] TECHNIQUE: XR chest 1V portable Frontal view of the chest. FINDINGS: Lungs/Pleura: There is no evidence of pleural effusion, focal consolidation, or pneumothorax. Pulmonary vascularity: Pulmonary vascular congestion. Heart/mediastinum: Cardiomediastinal silhouette is unremarkable. Musculoskeletal: No acute osseous pathology. Removal endotracheal and nasogastric tubes. IMPRESSION: Haziness throughout the lungs similar to prior. [facility], , 08/07/2024 7:18 AM
[2024-08-07 11:33] LABS: Glucose,Whole Blood 87 mg/dL (70-110)
--- NOTE | 2024-08-07 12:37 | P.PN ---
Subjective Progress Note Date: 08/07/24 Principal diagnosis: New onset seizure with acute hypoxic and hypercapnic respiratory failure requiring intubation mechanical ventilation Patient is a 79-year-old male with past medical history significant for dementia, depression, thyroid nodule, BPH. Patient was brought into the emergency department by EMS late last night. At home, he was suddenly noted to to be confused and nonverbal by his . When EMS arrived he was unresponsive. Flaccid in all 4 extremity. Right gaze deviation noted. In route, patient developed generalized tonic-clonic seizure-like activity. He was incontinent to urine and stool. He received 10 mg of IM Versed. On arrival, patient was in tubated for airway protection by the ER provider. Gastric content noted in his oropharynx on intubation. Also, patient had some emesis on his T-shirt. Family currently not at bedside to provide further information. According to the ER note, patient was reportedly feeling well prior to this earlier in the day. He did go [facility] his [facility]. No reported history of seizures. Reportedly weaning off Risperdal at home. Questionable history of TIA. Workup in the emergency department including a brain CT which did not show any acute intracranial hemorrhage or mass effect. Nonspecific white matter changes likely secondary to chronic small vessel ischemic disease. Brain CT angio did not show any evidence of dissection of the cervical internal carotid arteries or vertebral arteries or any significant stenosis at the carotid bifurcations. No evidence of intracranial high-grade stenosis or intracranial aneurysm. Neurology has been consulted. Patient was loaded with IV Keppra in the ED. Subsequently, patient did have a CT of his chest, abdomen, pelvis. Left lower lobe dependent atelectasis or infiltrate. Right-sided small pleural effusion with compressive atelectasis. Incidental findings including enlarged prostate gland with a Roman catheter and decompressed bladder. Multiple stones in the bladder. Bilateral renal cyst. Right hepatic lobe cyst. Patient is currently being evaluated in the emergency department. He is intubated to the mechanical ventilator. Sedated on propofol at 35 mcg/kg/min. Does not follow commands. Withdraws the pain in all 4 extremities. Post intubation chest x-ray showing endotracheal tube around the [place]. Orogastric tube coursing below the diaphragm. Bilateral lower lung atelectasis. Initial postintubation ABG with a PaO2 of 265, pCO2 49, pH of 7.26. This was done on ventilator settings of assist-control, respiratory rate 18, tidal volume 400, FiO2 100%, PEEP of 5. FiO2 is since been cut down to 60%. He is synchronous with current ventilator settings. No significant endotracheal tube secretions. Peak pressures around 19. CBC with a WBC count of 13.3, hemoglobin 14, platelets 279. BMP: Sodium 136, potassium 3.2, chloride 103, serum bicarb 24, BUN 24, creatinine 0.86, glucose 151. Alcohol level less than 10. EKG: Atrial fibrillation with RVR, rate 129 bpm. UA unremarkable for UTI. Urine toxicology screen also negative. No recorded fevers. Current rhythm appears in sinus on bedside monitor. Blood pressures currently 141/91 mmHg. Started empirically on Zosyn for his aspiration. Patient was seen today on 08/06/24, patient remains in the ICU, intubated and mechanically ventilated, he is on assist-control rate of 22 tidal volume 400 FiO2 40% PEEP of 5 ABG showed a pO2 of 129 pCO2 41 pH of 7.40 and the patient was placed on 35% FiO2. Patient is on propofol at 30 mcg/kg/min he is also on LR at 100 cc/h. Apparently his CODE STATUS has been changed to DNR CODE STATUS, patient is arousable, follows simple instructions, hence I recommended pressure support of 10 and CPAP, and if tolerated will proceed to weaning and extubation today. In the meantime we will continue Zosyn, continue seizure medications, patient is being followed by other consultants including nephrology and cardiology. WBC is 11.3 hemoglobin 12.1, basic metabolic profile is normal renal profile is normal chest x-ray showed no acute process. Seen today on 08/07/2024, patient was extubated yesterday, tolerated extubation well so far. Had to be placed on Precedex yesterday for agitation, presently on hold. He is on LR at 100 cc/h remains on Keppra remains on Lovenox, and I am planning to transfer the patient out of the ICU today to a medical floor/selective. Patient is awake, alert appropriate, does not seem to be in an y distress. WBC count is 10.1 hemoglobin 11.5 electrolytes are normal renal profile is normal potassium is a bit low being addressed accordingly. Objective - Vital Signs Vital signs: Vital Signs Temp 99.2 F 08/07/24 08:00 Pulse 81 08/07/24 11:30 Resp 23 08/07/24 11:30 BP 132/92 08/07/24 11:30 Pulse Ox 93 L 08/07/24 11:30 FiO2 40 08/06/24 10:18 Intake & Output 08/06/24 08/07/24 08/07/24 18:59 06:59 18:59 Intake Total 3903.518 1494.147 530 Output Total 1780 1100 650 Balance -243.949 377.147 -120 Weight 64 kg 65.1 kg Intake: IV 1300 1430 530 .9 KVOs 200 130 30 Lactated Ringers 1,000 ml 1100 1300 400 @ 100 mls/hr IV .Q10H [facility] Rx#:[id number] Potassium Chloride 10 meq 100 In Water For Injection 1 100ml.bag @ 100 mls/hr IVPB Q1HR [facility] Rx#: [id number] Intake, IV Titration 96.051 47.147 Amount Dexmedetomidine/0.9% NaCl 22.959 47.147 (Pmx) 400 mcg In Empty Bag 1 bag @ 0.2 MCG/KG/HR 3.2 mls/hr IV .Q24H [facility] Rx#:[id number] propofoL 1,000 mg In 73.092 Empty Bag 1 bag @ 15 MCG/ KG/MIN 5.715 mls/hr IV . [id number] [facility] Rx#:[id number] Tube Feeding 110 Other 30 Output: Urine 1780 1100 650 Other: Voiding Method Indwelling Catheter Indwelling Catheter Indwelling Catheter - Exam GENERAL EXAM: 79-year-old white male off mechanical ventilation, on nasal cannula, not in distress HEAD: Normocephalic and atraumatic EYES: Normal reaction of pupils, equal size. Slow, horizontal nystagmus. Anicteric sclera. NOSE: Clear with pink turbinates. THROAT: No erythema or exudates. NECK: No masses, no JVD. CHEST: No chest wall deformity. LUNGS diminished breath sound bilaterally no rhonchi no wheezes CVS: Distant S1-S2, 2/6 systolic murmur throughout the precordium ABDOMEN: No hepatosplenomegaly, active bowel sounds, no guarding or rigidity. SKIN: No rashes. CENTRAL NERVOUS SYSTEM: Alert and oriented x 3 no focal deficit EXTREMITIES: No clubbing edema or cyanosis. - Labs CBC & Chem 7: 08/07/24 05:29 08/07/24 05:29 Labs: Abnormal Lab Results - Last 24 Hours (Table) 08/06/24 08/06/24 08/07/24 Range/Units 18:11 23:15 05:29 WBC 10.17 H (4.50-10.00) 10*3/uL RBC 3.75 L (4.40-5.60) 10*6/uL Hgb 11.5 L (13.0-17.0) g/dL Hct 34.7 L (39.6-50.0) % MPV 9.2 L (9.5-12.2) fL Neutrophils # 8.28 H (1.80-7.70) 10*3/uL Lymphocytes # 0.75 L (0.90-5.00) 10*3/uL Potassium (3.5-5.1) mmol/L Chloride (98-107) mmol/L BUN (9-20) mg/dL Creatinine (0.66-1.25) mg/dL POC Glucose (mg/dL) 122 H 119 H (70-110) mg/dL 08/07/24 Range/Units 05:29 WBC (4.50-10.00) 10*3/uL RBC (4.40-5.60) 10*6/uL Hgb (13.0-17.0) g/dL Hct (39.6-50.0) % MPV (9.5-12.2) fL Neutrophils # (1.80-7.70) 10*3/uL Lymphocytes # (0.90-5.00) 10*3/uL Potassium 3.1 L (3.5-5.1) mmol/L Chloride 108 H (98-107) mmol/L BUN 8 L (9-20) mg/dL Creatinine 0.64 L (0.66-1.25) mg/dL POC Glucose (mg/dL) (70-110) mg/dL Microbiology - Last 24 Hours (Table) 08/05/24 01:10 Gram Stain - Final Sputum Sputum Culture - Final Assessment and Plan Assessment: Impression: New onset seizure activity, patient was given 10 mg of IV Valium in-route to the hospital. Also, loaded with 1 g of Keppra in the ED. remains intubated and mechanically ventilated, EEG done by neurology showed generalized cerebral dysfunction related to toxic metabolic encephalopathy no definite epileptiform activity noted. Acute hypoxemic and hypercapnic respiratory failure, secondary to above, Possible aspiration, not seen on chest x-ray, will likely discontinue antibiotics Brief episode of atrial fibrillation with rapid ventricular response, current rhythm appears normal sinus on bedside monitor Hypokalemia History of dementia BPH Depression Recommendation: Patient was extubated on 08/06/2024, tolerated extubation well Transfer patient out of the ICU to a monitored bed and selective Continue bronchodilators Continue GI DVT prophylaxis Continue Keppra Continue seizure precautions Patient is being followed by neurology and by cardiology Will continue to follow Time with Patient: Less than 30
--- NOTE | 2024-08-07 12:50 | P.PN ---
Subjective Progress Note Date: 08/07/24 Pt extubated overnight to nasal cannula and saturating well. Gen: In NAD, non-toxic HEENT: normocephalic, atraumatic, hearing acuity is intant, mucous membranes moist CVS: perfusing all extremities well, no pitting edema, Respiratory: symmetric chest expansion, no accessory muscle use, GI: soft, NTTP, ND, : no suprapubic tenderness, no CVA tenderness MSK/Derm: no rashes, cyanosis Neuro: CN II-XII intact, no motor weakness, Psych: cooperative, euthymic mood, judgment and insight is intact Hospital course: 79-year-old male with PMH of dementia who presents emergency department via EMS after being found unresponsive and having undergone seizure activity. Labratory review: - WBC 12.91, hemoglobin 14.6, medic at 44.4, platelet 309; sodium 138, potassium 3.8, bicarb 19, BUN 24, creatinine 0.88, calcium 10.7, magnesium 1.9, total bilirubin 0.8, AST 34, ALT 25, alkaline phosphatase 77, creatinine kinase of 40 - ABG: pH 7.26, pCO2 49, PO2 265 - Troponin <0.012 - Urinalysis unremarkable; serum alcohol <10 Imaging: - Chest x-ray done in the ER showed bilateral lower lung atelectasis and endotracheal tube in normal position, with recommending advancing of the NG tube 3 to 5 cm - CT brain showed no acute intracranial process - CT angiography head/neck showed no evidence of dissection of the cervical internal carotid arteries or vertebral arteries or any evidence of significant stenosis at the carotid bifurcations and no evidence of intracranial high-grade stenosis or intracranial aneurysm - CT chest/abdomen/pelvis showed 4.1 cm ascending thoracic aortic aneurysm, small right pleural effusion with compressive atelectasis right lower lobe markedly enlarged prostate gland, bilateral renal cyst, right hepatic lobe cyst and multiple bladder calculi - EKG done in the ER showed heart rate of , no ST segment elevation or depression seen, no T-wave inversions seen. Vitals: - On arrival: Blood pressure 178/111, heart rate 121, respiratory rate 22, SpO2 93% on manual bagging - Most recently: Blood pressure 152/95, heart rate 71, respiratory rate 20, SpO2 97% on mechanical ventilation Patient admitted to internal medicine service Hospital Workup: - TSH is 0.71 - Urine drug screen is negative - EEG ordered, no epileptiform activity, generalized slowing; this was done on p ropofol Assessment and plan 79-year-old male with PMH of dementia who presents emergency department via EMS after being found unresponsive and having undergone seizure activity. #New onset seizure without known seizure history #Acute metabolic encephalopathy - Suffered at least 2 general tonic-clonic seizures, one prior to EMS arrival and one witnessed by EMS - 500 mg Keppra twice daily - Maintain seizure, fall and aspiration precaution - Neurology consulted, appreciate recommendations - Ativan 1 mg IVP as needed for seizure activity - PT/OT consult #SIRS criteria met on admission #Aspiration ammonia - Continue with LR at 100 cc/h - Continue with Zosyn 3.375 g every 8 hours - Sputum culture ordered, currently pending #Hypercalcemia, resolved - Initial lab work calcium 10.7 - Repeat lab work showed calcium 10.2 - Albumin 4.5 #Hypokalemia - On admission potassium 3.8, on repeat lab 3.2 - Potassium replacement per protocol with a total of 40 mEq potassium bicarbonate through NG tube - Will continue to monitor BMP DVT prophylaxis: Lovenox 40 mg subcu daily The patient is admitted with an anticipated more than than 2 midnight stay for evaluation of new onset tonic-clonic seizure and SIRS criteria met on admission. CODE STATUS: No code Discussed with: Anticipated discharge place: Pending clinical course Dictation was produced using [employer] dictation software. please excuse any grammatical, word or spelling errors. Objective - Vital Signs Vital signs: Vital Signs Temp 99.2 F 08/07/24 08:00 Pulse 81 08/07/24 11:30 Resp 23 08/07/24 11:30 BP 132/92 08/07/24 11:30 Pulse Ox 93 L 08/07/24 11:30 FiO2 40 08/06/24 10:18 Intake & Output 08/06/24 08/07/24 08/07/24 18:59 06:59 18:59 Intake Total 7764.866 4232.147 530 Output Total 1780 1100 650 Balance -243.949 377.147 -120 Weight 64 kg 65.1 kg Intake: IV 1300 1430 530 .9 KVOs 200 130 30 Lactated Ringers 1,000 ml 1100 1300 400 @ 100 mls/hr IV .Q10H [facility] Rx#:[id number] Potassium Chloride 10 meq 100 In Water For Injection 1 100ml.bag @ 100 mls/hr IVPB Q1HR [facility] Rx#: [id number] Intake, IV Titration 96.051 47.147 Amount Dexmedetomidine/0.9% NaCl 22.959 47.147 (Pmx) 400 mcg In Empty Bag 1 bag @ 0.2 MCG/KG/HR 3.2 mls/hr IV .Q24H [facility] Rx#:[id number] propofoL 1,000 mg In 73.092 Empty Bag 1 bag @ 15 MCG/ KG/MIN 5.715 mls/hr IV . [id number] [facility] Rx#:[id number] Tube Feeding 110 Other 30 Output: Urine 1780 1100 650 Other: Voiding Method Indwelling Catheter Indwelling Catheter Indwelling Catheter - Labs CBC & Chem 7: 08/07/24 05:29 08/07/24 05:29 Labs: Abnormal Lab Results - Last 24 Hours (Table) 08/06/24 08/06/24 08/07/24 Range/Units 18:11 23:15 05:29 WBC 10.17 H (4.50-10.00) 10*3/uL RBC 3.75 L (4.40-5.60) 10*6/uL Hgb 11.5 L (13.0-17.0) g/dL Hct 34.7 L (39.6-50.0) % MPV 9.2 L (9.5-12.2) fL Neutrophils # 8.28 H (1.80-7.70) 10*3/uL Lymphocytes # 0.75 L (0.90-5.00) 10*3/uL Potassium (3.5-5.1) mmol/L Chloride (98-107) mmol/L BUN (9-20) mg/dL Creatinine (0.66-1.25) mg/dL POC Glucose (mg/dL) 122 H 119 H (70-110) mg/dL 08/07/24 Range/Units 05:29 WBC (4.50-10.00) 10*3/uL RBC (4.40-5.60) 10*6/uL Hgb (13.0-17.0) g/dL Hct (39.6-50.0) % MPV (9.5-12.2) fL Neutrophils # (1.80-7.70) 10*3/uL Lymphocytes # (0.90-5.00) 10*3/uL Potassium 3.1 L (3.5-5.1) mmol/L Chloride 108 H (98-107) mmol/L BUN 8 L (9-20) mg/dL Creatinine 0.64 L (0.66-1.25) mg/dL POC Glucose (mg/dL) (70-110) mg/dL Microbiology - Last 24 Hours (Table) 08/05/24 01:10 Gram Stain - Final Sputum Sputum Culture - Final
[2024-08-07] MEDS ORDERED: NAPHAZOLINE-PHENIRA 0.025-0.3% DROPS 15 ML BTL BOTH EYES PRN (14:44)
[2024-08-07 16:20] LABS: Glucose,Whole Blood 89 mg/dL (70-110)
[2024-08-07] MEDS: AMMONIUM LACTATE 12% LOTION 225 GM BTL TOPICAL SCH (21:39)
[2024-08-08] MEDS: MULTIVITAMINS, THERA 1 EACH TAB PO SCH (08:21)
--- NOTE | 2024-08-08 14:30 | P.PN ---
Subjective Progress Note Date: 08/08/24 Pt is doing well on room air. Stepped down to the floor. Likely discharge tomorrow pending PT/OT consult. Gen: In NAD, non-toxic HEENT: normocephalic, atraumatic, hearing acuity is intant, mucous membranes moist CVS: perfusing all extremities well, no pitting edema, Respiratory: symmetric chest expansion, no accessory muscle use, GI: soft, NTTP, ND, : no suprapubic tenderness, no CVA tenderness MSK/Derm: no rashes, cyanosis Neuro: CN II-XII intact, no motor weakness, Psych: cooperative, euthymic mood, judgment and insight is intact Hospital course: 79-year-old male with PMH of dementia who presents emergency department via EMS after being found unresponsive and having undergone seizure activity. Labratory review: - WBC 12.91, hemoglobin 14.6, medic at 44.4, platelet 309; sodium 138, potassium 3.8, bicarb 19, BUN 24, creatinine 0.88, calcium 10.7, magnesium 1.9, total bilirubin 0.8, AST 34, ALT 25, alkaline phosphatase 77, creatinine kinase of 40 - ABG: pH 7.26, pCO2 49, PO2 265 - Troponin <0.012 - Urinalysis unremarkable; serum alcohol <10 Imaging: - Chest x-ray done in the ER showed bilateral lower lung atelectasis and endotracheal tube in normal position, with recommending advancing of the NG tube 3 to 5 cm - CT brain showed no acute intracranial process - CT angiography head/neck showed no evidence of dissection of the cervical internal carotid arteries or vertebral arteries or any evidence of significant stenosis at the carotid bifurcations and no evidence of intracranial high-grade stenosis or intracranial aneurysm - CT chest/abdomen/pelvis showed 4.1 cm ascending thoracic aortic aneurysm, small right pleural effusion with compressive atelectasis right lower lobe markedly enlarged prostate gland, bilateral renal cyst, right hepatic lobe cyst and multiple bladder calculi - EKG done in the ER showed heart rate of , no ST segment elevation or depression seen, no T-wave inversions seen. Vitals: - On arrival: Blood pressure 178/111, heart rate 121, respiratory rate 22, SpO2 93% on manual bagging - Most recently: Blood pressure 152/95, heart rate 71, respiratory rate 20, SpO2 97% on mechanical ventilation Patient admitted to internal medicine service Hospital Workup: - TSH is 0.71 - Urine drug screen is negative - EEG ordered, no epileptiform activity, generalized slowing; this was done on propofol Assessment and plan 79-year-old male with PMH of dementia who presents emergency department via EMS after being found unresponsive and having undergone seizure activity. #New onset seizure without known seizure history #Acute metabolic encephalopathy - Suffered at least 2 general tonic-clonic seizures, one prior to EMS arrival and one witnessed by EMS - 500 mg Keppra twice daily - Maintain seizure, fall and aspiration precaution - Neurology consulted, appreciate recommendations - Ativan 1 mg IVP as needed for seizure activity - PT/OT consult #SIRS criteria met on admission #Aspiration ammonia - Continue with LR at 100 cc/h - Continue with Zosyn 3.375 g every 8 hours - Sputum culture ordered, currently pending #Hypercalcemia, resolved - Initial lab work calcium 10.7 - Repeat lab work showed calcium 10.2 - Albumin 4.5 #Hypokalemia - On admission potassium 3.8, on repeat lab 3.2 - Potassium replacement per protocol with a total of 40 mEq potassium bicarbonate through NG tube - Will continue to monitor BMP DVT prophylaxis: Lovenox 40 mg subcu daily The patient is admitted with an anticipated more than than 2 midnight stay for evaluation of new onset tonic-clonic seizure and SIRS criteria met on admission. CODE STATUS: No code Discussed with: Anticipated discharge place: Pending clinical course Dictation was produced using [employer] dictation software. please excuse any grammatical, word or spelling errors. Objective - Vital Signs Vital signs: Vital Signs Temp 97.4 F L 08/08/24 08:00 Pulse 70 08/08/24 11:55 Resp 16 08/08/24 11:55 BP 135/79 08/08/24 11:55 Pulse Ox 95 08/08/24 11:55 FiO2 40 08/06/24 10:18 Intake & Output 08/07/24 08/08/24 08/08/24 18:59 06:59 18:59 Intake Total 1415 50 760 Output Total 1970 1175 700 Balance -555 1127 60 Weight 64 kg Intake: IV 1055 50 40 .9 KVOs 30 Invasive Line 2 30 20 Invasive Line 4 20 20 Lactated Ringers 1,000 ml 725 @ 75 mls/hr IV .[id number] [facility] Rx#:[id number] Potassium Chloride 10 meq 300 In Water For Injection 1 100ml.bag @ 100 mls/hr IVPB Q1HR [facility] Rx#: [id number] Oral 360 720 Output: Urine 1970 1175 700 Other: Voiding Method Indwelling Catheter Indwelling Catheter Indwelling Catheter # Bowel Movements 1 1 - Labs CBC & Chem 7: 08/07/24 05:29 08/07/24 05:29 Labs: Microbiology - Last 24 Hours (Table) 08/05/24 01:10 Gram Stain - Final Sputum Sputum Culture - Final
[2024-08-08] MEDS ORDERED: IPRATROPIUM-ALBUTEROL 3 ML NEB INHALATION PRN (15:25)
--- NOTE | 2024-08-08 15:29 | P.PN ---
Subjective Progress Note Date: 08/08/24 Patient is a 79-year-old male with past medical history significant for dementia, depression, thyroid nodule, BPH. Patient was brought into the emergency department by EMS late last night. At home, he was suddenly noted to to be confused and nonverbal by his . When EMS arrived he was unresponsive. Flaccid in all 4 extremity. Right gaze deviation noted. In route, patient developed generalized tonic-clonic seizure-like activity. He was incontinent to urine and stool. He received 10 mg of IM Versed. On arrival, patient was intubated for airway protection by the ER provider. Gastric content noted in his oropharynx on intubation. Also, patient had some emesis on his T-shirt. Family currently not at bedside to provide further information. According to the ER note, patient was reportedly feeling well prior to this earlier in the day. He did go to his [facility] program. No reported history of seizures. Reportedly weaning off Risperdal at home. Questionable history of TIA. Workup in the emergency department including a brain CT which did not show any acute intracranial hemorrhage or mass effect. Nonspecific white matter changes likely secondary to chronic small vessel ischemic disease. Brain CT angio did not show any evidence of dissection of the cervical internal carotid arteries or vertebral arteries or any significant stenosis at the carotid bifurcations. No evidence of intracranial high-grade stenosis or intracranial aneurysm. Neurology has been consulted. Patient was loaded with IV Keppra in the ED. Subsequently, patient did have a CT of his chest, abdomen, pelvis. Left lower lobe dependent atelectasis or infiltrate. Right-sided small pleural effusion with compressive atelectasis. Incidental findings including enlarged prostate gland with a Roman catheter and decompressed bladder. Multiple stones in the bladder. Bilateral renal cyst. Right hepatic lobe cyst. Patient is currently being evaluated in the emergency department. He is intubated to the mechanical ventilator. Sedated on propofol at 35 mcg/kg/min. Does not follow commands. Withdraws the pain in all 4 extremities. Post intubation chest x-ray showing endotracheal tube around the [place]. Orogastric tube coursing below the diaphragm. Bilateral lower lung atelectasis. Initial postintubation ABG with a PaO2 of 265, pCO2 49, pH of 7.26. This was done on ventilator settings of ass ist-control, respiratory rate 18, tidal volume 400, FiO2 100%, PEEP of 5. FiO2 is since been cut down to 60%. He is synchronous with current ventilator settings. No significant endotracheal tube secretions. Peak pressures around 19. CBC with a WBC count of 13.3, hemoglobin 14, platelets 279. BMP: Sodium 136, potassium 3.2, chloride 103, serum bicarb 24, BUN 24, creatinine 0.86, glucose 151. Alcohol level less than 10. EKG: Atrial fibrillation with RVR, rate 129 bpm. UA unremarkable for UTI. Urine toxicology screen also negative. No recorded fevers. Current rhythm appears in sinus on bedside monitor. Blood pressures currently 141/91 mmHg. Started empirically on Zosyn for his aspi ration. Patient was seen today on 08/06/24, patient remains in the ICU, intubated and mechanically ventilated, he is on assist-control rate of 22 tidal volume 400 FiO2 40% PEEP of 5 ABG showed a pO2 of 129 pCO2 41 pH of 7.40 and the patient was placed on 35% FiO2. Patient is on propofol at 30 mcg/kg/min he is also on LR at 100 cc/h. Apparently his CODE STATUS has been changed to DNR CODE STATUS, patient is arousable, follows simple instructions, hence I recommended pressure support of 10 and CPAP, and if tolerated will proceed to weaning and extubation today. In the meantime we will continue Zosyn, continue seizure medications, patient is being followed by other consultants including nephrology and cardiology. WBC is 11.3 hemoglobin 12.1, basic metabolic profile is normal renal profile is normal chest x-ray showed no acute process. Seen today on 08/07/2024, patient was extubated yesterday, tolerated extubation well so far. Had to be placed on Precedex yesterday for agitation, presently on hold. He is on LR at 100 cc/h remains on Keppra remains on Lovenox, and I am planning to transfer the patient out of the ICU today to a medical floor/selective. Patient is awake, alert appropriate, does not seem to be in any distress. WBC count is 10.1 hemoglobin 11.5 electrolytes are normal renal profile is normal potassium is a bit low being addressed accordingly. The patient is seen today August 08, 2024 in follow-up on the selective care unit. He was transferred out of the intensive care unit yesterday. He is currently sitting up in a chair. He is awake and alert in no acute distress. Maintaining good O2 saturations in the mid 90s on room air. He has been afebrile. Hemod ynamically stable. He is quite hard of hearing. Family is at the bedside. Sputum culture revealed no growth. No new labs today. He remains on DuoNeb inhalations. Lovenox for DVT prophylaxis. He is continued on Keppra. No new seizure activity. Objective - Vital Signs Vital signs: Vital Signs Temp 97.4 F L 08/08/24 08:00 Pulse 70 08/08/24 11:55 Resp 16 08/08/24 11:55 BP 135/79 08/08/24 11:55 Pulse Ox 95 08/08/24 11:55 FiO2 40 08/06/24 10:18 Intake & Output 08/07/24 08/08/24 08/08/24 18:59 06:59 18:59 Intake Total 1415 50 760 Output Total 1970 1175 700 Balance -555 -1125 60 Weight 64 kg Intake: IV 1055 50 40 .9 KVOs 30 Invasive Line 2 30 20 Invasive Line 4 20 20 Lactated Ringers 1,000 ml 725 @ 75 mls/hr IV .[id number] ESTEFANI Rx#:[id number] Potassium Chloride 10 meq 300 In Water For Injection 1 100ml.bag @ 100 mls/hr IVPB Q1HR ESTEFANI Rx#: [id number] Oral 360 720 Output: Urine 1969 1175 700 Other: Voiding Method Indwelling Catheter Indwelling Catheter Indwelling Catheter # Bowel Movements 1 1 - Exam GENERAL EXAM: Alert, hard of hearing, 79-year-old male, up in a chair, on room air, comfortable in no apparent distress. HEAD: Normocephalic. EYES: Normal reaction of pupils, equal size. NOSE: Clear with pink turbinates. THROAT: No erythema or exudates. NECK: No masses, no JVD. CHEST: No chest wall deformity. LUNGS: Equal air entry with no crackles, wheeze, rhonchi or dullness. CVS: S1 and S2 normal with no audible murmur, regular rhythm. ABDOMEN: No hepatosplenomegaly, normal bowel sounds, no guarding or rigidity. SPINE: No scoliosis or deformity SKIN: No rashes CENTRAL NERVOUS SYSTEM: No focal deficits, tone is normal in all 4 extremities. EXTREMITIES: There is no peripheral edema. No clubbing, no cyanosis. Pe ripheral pulses are intact. - Labs CBC & Chem 7: 08/07/24 05:29 08/07/24 05:29 Labs: Microbiology - Last 24 Hours (Table) 08/05/24 01:10 Gram Stain - Final Sputum Sputum Culture - Final Assessment and Plan Assessment: New onset seizure activity, patient was given 10 mg of IV Valium in-route to the hospital. Also, loaded with 1 g of Keppra in the ED. remains intubated and mech anically ventilated, EEG done by neurology showed generalized cerebral dysfunction related to toxic metabolic encephalopathy no definite epileptiform activity noted. Acute hypoxemic and hypercapnic respiratory failure, secondary to above, recovered and on room air Possible aspiration, not seen on chest x-ray Brief episode of atrial fibrillation with rapid ventricular response, current rhythm appears normal sinus on bedside monitor Hypokalemia History of dementia BPH Depression Hearing disorder Plan: The patient was seen and evaluated Labs and medications reviewed Stable and on room air oxygen Bronchodilators as needed Continue Keppra Continue seizure precautions No new seizure activity Plan is to return home with [facility] at discharge I have personally seen and examined the patient, performed the documentation and the assessment and plan as written. Number of minutes spent on the visit: 10 Dictation was produced using [employer] dictation software. Please excuse any gram matical, word or spelling errors.
[2024-08-08] MEDS ORDERED: ZINC OXIDE PASTE (Z-GUARD) 1 APPLIC TOPICAL PRN (23:05)
[2024-08-09 05:00] LABS: Basophils # (A) 0.06 10*3/uL (0.00-0.10); Basophils % (A) 0.7 %; Eosinophils # (A) 0.29 10*3/uL (0.04-0.35); Eosinophils % (A) 3.4 %; HCT 37.7 % (39.6-50.0); HGB 12.9 g/dL (13.0-17.0); Lymphocytes # (A) 1.04 10*3/uL (0.90-5.00); Lymphocytes % (A) 12.1 %; MCHC 34.2 g/dL (32.0-37.0); MCV 90.6 fL (80.0-97.0); Mean Platelet Volume 8.9 fL (9.5-12.2); Monocytes % (A) 11.7 %; Neutrophils # (A) 6.17 10*3/uL (1.80-7.70); Neutrophils % (A) 71.9 %; Platelet Count 277 10*3/uL (140-440); RBC 4.16 10*6/uL (4.40-5.60); RDW 13.9 % (11.5-14.5); WBC 8.58 10*3/uL (4.50-10.00)
[2024-08-09 05:20] LABS: African American GFR (CKD) >90 (>60 ml/min/1.73 sqM); Anion Gap 9 mmol/L; Blood Urea Nitrogen 13 mg/dL (9-20); Calcium 9.4 mg/dL (8.4-10.2); Carbon Dioxide 25 mmol/L (22-30); Chloride 104 mmol/L (98-107); Glucose 98 mg/dL (74-99); Magnesium 1.7 mg/dL (1.6-2.3); Non-African American GFR(CKD) 88 (>60 ml/min/1.73 sqM); Potassium 3.5 mmol/L (3.5-5.1); Sodium 138 mmol/L (137-145)
[2024-08-09 11:59] VITALS: BP 132/85; PULSE 84; RESP 16; TEMP 98.4
--- NOTE | 2024-08-09 12:48 | P.DS ---
Providers Date of admission: 08/05/24 00:21 Expected date of discharge: 08/09/24 Attending physician: Cristina Levine MD Consults: 08/05/24 00:19 Consult Physician Urgent Consulting Provider: Katarzyna Mckeon Consult Reason/Comments: new onset seizure Do you want consulting provider notified?: Yes 08/05/24 00:37 Consult Physician Stat Consulting Provider: Jazmyn Perez Consult Reason/Comments: vent dependance, new onset seizure Do you want consulting provider notified?: Already Contacted Primary care physician: Chapincito Vasques MD Hospital Course: #New onset seizure without known seizure history #Acute metabolic encephalopathy #SIRS criteria met on admission #Aspiration ammonia #Hypercalcemia, resolved #Hypokalemia Gen: In NAD, non-toxic HEENT: normocephalic, atraumatic, hearing acuity is intant, mucous membranes moist CVS: perfusing all extremities well, no pitting edema, Respiratory: symmetric chest expansion, no accessory muscle use, GI: soft, NTTP, ND, : no suprapubic tenderness, no CVA tenderness MSK/Derm: no rashes, cyanosis Neuro: CN II-XII intact, no motor weakness, Psych: cooperative, euthymic mood, judgment and insight is intact Hospital course: 79-year-old male with PMH of dementia who presents emergency department via EMS after being found unresponsive and having undergone seizure activity. Labratory review: - WBC 12.91, hemoglobin 14.6, medic at 44.4, platelet 309; sodium 138, potassium 3.8, bicarb 19, BUN 24, creatinine 0.88, calcium 10.7, magnesium 1.9, total bilirubin 0.8, AST 34, ALT 25, alkaline phosphatase 77, creatinine kinase of 40 - ABG: pH 7.26, pCO2 49, PO2 265 - Troponin <0.012 - Urinalysis unremarkable; serum alcohol <10 Imaging: - Chest x-ray done in the ER showed bilateral lower lung atelectasis and endotracheal tube in normal position, with recommending advancing of the NG tube 3 to 5 cm - CT brain showed no acute intracranial process - CT angiography head/neck showed no evidence of dissection of the cervical internal carotid arteries or vertebral arteries or any evidence of significant stenosis at the carotid bifurcations and no evidence of intracranial high-grade stenosis or intracranial aneurysm - CT chest/abdomen/pelvis showed 4.1 cm ascending thoracic aortic aneurysm, small right pleural effusion with compressive atelectasis right lower lobe markedly enlarged prostate gland, bilateral renal cyst, right hepatic lobe cyst and multiple bladder calculi - EKG done in the ER showed heart rate of , no ST segment elevation or depression seen, no T-wave inversions seen. Vitals: - On arrival: Blood pressure 178/111, heart rate 121, respiratory rate 22, SpO2 93% on manual bagging - Most recently: Blood pressure 152/95, heart rate 71, respiratory rate 20, SpO2 97% on mechanical ventilation Patient admitted to internal medicine service Hospital Workup: - TSH is 0.71 - Urine drug screen is negative - EEG ordered, no epileptiform activity, generalized slowing; this was done on propofol Patient was extubated and stepdown from the ICU in good condition. He recovered back to baseline and was able to ambulate the hallways with supervision only. Patient was discharged home with PCP follow-up and a new prescription for Keppra 500 mg p.o. twice daily. Warm handoff was provided to his PCP. I spent 38 minutes coordinating this discharge Patient Condition at Discharge: Good Plan - Discharge Summary New Discharge Prescriptions: New levETIRAcetam [Keppra] 500 mg PO Q12HR #60 tab Continue risperiDONE [RisperDAL] 0.5 mg PO DAILY Tamsulosin [Flomax] 0.4 mg PO HS Simethicone [Gas-X] 125 mg PO DIRECTED Multivit/Iron Sulf/Folic Acid [Multivitamin with Iron] 1 tab PO DAILY FLUoxetine HCL [Sarafem] 60 mg PO HS Ammonium Lactate [Amlactin] 1 applic TOPICAL BID Discharge Medication List Ammonium Lactate [Amlactin] 1 applic TOPICAL BID 08/05/24 [History] FLUoxetine HCL [Sarafem] 60 mg PO HS 08/05/24 [History] Multivit/Iron Sulf/Folic Acid [Multivitamin with Iron] 1 tab PO DAILY 08/05/24 [History] Simethicone [Gas-X] 125 mg PO DIRECTED 08/05/24 [History] Tamsulosin [Flomax] 0.4 mg PO HS 08/05/24 [History] risperiDONE [RisperDAL] 0.5 mg PO DAILY 08/05/24 [History] levETIRAcetam [Keppra] 500 mg PO Q12HR #60 tab 08/09/24 [Rx] Follow up Appointment(s)/Referral(s): Chapincito Vasques MD [Primary Care Provider] - 1-2 days Patient Instructions/Handouts: Seizure/Epilepsy Discharge Instructions & Follow-Up Discharge Disposition: HOME SELF-CARE
--- NOTE | 2024-08-09 14:39 | P.PN ---
Subjective Progress Note Date: 08/09/24 I am seeing the patient for the first time during this admission. Please refer to Dr. Mckeon's notes for further details. The family is at bedside and they stated the patient had a seizure-like episode and he is on Keppra currently as result during this admission. Family feels patient is making great improvement compared to initial presentation. He has history of depression. No history of dementia. Objective - Vital Signs Vital signs: Vital Signs Temp 98.4 F 08/09/24 11:57 Pulse 84 08/09/24 11:57 Resp 16 08/09/24 11:57 BP 132/85 08/09/24 11:57 Pulse Ox 93 L 08/09/24 11:57 FiO2 40 08/06/24 10:18 Intake & Output 08/08/24 08/09/24 08/09/24 18:59 06:59 18:59 Intake Total 760 60 30 Output Total 1200 600 Balance -440 -540 30 Weight 64 kg 64 kg Intake: IV 40 60 30 Invasive Line 2 20 20 10 Invasive Line 3 20 10 Invasive Line 4 20 20 10 Oral 720 Output: Urine 1200 600 Other: Voiding Method Indwelling Catheter Toilet Toilet Urinal Urinal # Voids 1 1 # Bowel Movements 1 1 - Exam General: Lying in bed and is not in acute distress. Neuro: The patient is awake, alert, oriented to self, place and time. Is following simple commands. No aphasia. Pupils are round, equal, 3mm and reactive to light. Visual bernal are full to confrontation. No facial weakness. No dysarthria. Motor: Is lifting all extremties above gravity equally. - Labs CBC & Chem 7: 08/09/24 04:34 08/09/24 04:34 Labs: Abnormal Lab Results - Last 24 Hours (Table) 08/09/24 Range/Units 04:34 RBC 4.16 L (4.40-5.60) 10*6/uL Hgb 12.9 L (13.0-17.0) g/dL Hct 37.7 L (39.6-50.0) % MPV 8.9 L (9.5-12.2) fL Assessment and Plan Assessment: * 79-year-old male was found unresponsive at home. He had a witnessed seizure at the scene. Patient was neurologically fine, 1 hour prior to being discovered unresponsive. Patient had subsequent seizure in the ambulance as well. * Aspiration pneumonia. * Brief episode of atrial fibrillation with RVR, currently in sinus rhythm. * BPH * History of depression. Patient's denies any history of dementia. Plan: * EEG was performed (on propofol 45 mcg/kg/min), which was abnormal due to background slowing, mild suppression, suggestive of generalized cerebral dysfunction as can be seen with toxic metabolic encephalopathy or related to diffuse structural brain abnormality or medication effect. Clinical correlation is recommended. No definite epileptiform activity was seen. * CTA of head and neck revealed no evidence of dissection of the cervical internal carotid arteries or vertebral arteries or any evidence of significant stenosis in the carotid bifurcations. No evidence of intracranial high-grade stenosis or intracranial aneurysm. * Continue Keppra 500 mg twice daily. * Per Dr. Mckeon, no indication for lumbar puncture. * Per [place] DMV because of seizure, avoid driving for 6 months until seizure free, avoid heights, swim unassisted or using heavy machinery. * Upon discharge, recommend the patient to follow-up with neurologist as outpatient within 2-3 weeks. The plan is discussed with patient, his family members ( and son). Otherwise no additional neurological work-up. Time with Patient: Less than 30
== END 2024-08-09 14:49 | disposition home or self-care (01) | DRG 100 ==
LOC: EC 20:38 → 2SICU 08-05 00:21 → 3SCARD 08-07 17:15
PROVIDERS: ADMIT Internal Medicine; ATTEND Internal Medicine
PROC: 0BH18EZ Insertion of Endotracheal Airway into Trachea, Via Natural or Artificial Opening Endoscopic (ICD-10-PCS; principal; 2024-08-04)
PROC: 5A1945Z Respiratory Ventilation, 24-96 Consecutive Hours (ICD-10-PCS; 2024-08-04)
DX: R56.9 Unspecified convulsions (principal); G92.8 Other toxic encephalopathy; J69.0 Pneumonitis due to inhalation of food and vomit; J96.01 Acute respiratory failure with hypoxia; J96.02 Acute respiratory failure with hypercapnia; I48.92 Unspecified atrial flutter; I47.19 Other supraventricular tachycardia; J98.11 Atelectasis; Z66 Do not resuscitate; F03.93 Unspecified dementia, unspecified severity, with mood disturbance; R65.10 Systemic inflammatory response syndrome (SIRS) of non-infectious origin without acute organ dysfunction; T17.918A Gastric contents in respiratory tract, part unspecified causing other injury, initial encounter; G93.89 Other specified disorders of brain; K76.89 Other specified diseases of liver; I71.21 Aneurysm of the ascending aorta, without rupture; F32.A Depression, unspecified; R00.1 Bradycardia, unspecified; I48.91 Unspecified atrial fibrillation; N40.0 Benign prostatic hyperplasia without lower urinary tract symptoms; N28.1 Cyst of kidney, acquired; N21.0 Calculus in bladder; E87.6 Hypokalemia; E83.52 Hypercalcemia; H91.90 Unspecified hearing loss, unspecified ear; R32 Unspecified urinary incontinence; R15.9 Full incontinence of feces; Z86.73 Personal history of transient ischemic attack (TIA), and cerebral infarction without residual deficits; Z87.442 Personal history of urinary calculi; Z79.899 Other long term (current) drug therapy
CPT/HCPCS: 36415; 36600; 70450; 70496; 70498; 71045; 71250; 74176; 80048; 80053; 80306; 80320; 81001; 82550; 82805; 83735; 84132; 84443; 84484; 85025; 85610; 85730; 87070; 87205; 93005; 93306; 94002; 94003; 94640; 95822; 96374; 99285